=== PATIENT | female | born 1970 | race Caucasian/White ===

== ENCOUNTER 2020-08-08 20:59 | Emergency (ER) | payer OTHER, SELFPAY ==
[2020-08-08 22:15] VITALS: BP 121/80; PULSE 83; RESP 18; TEMP 37.2; O2SAT 97; BMI 36.2
--- NOTE | 2020-08-08 22:28 | XR_ITS ---
EXAMINATION: XR CHEST CLINICAL INFORMATION: Cough COMPARISON: None TECHNIQUE: Frontal view of the chest was obtained. FINDINGS: Difficult exam due to patient body habitus. Generalized opacity over the right mid to lower lung may well represent overlying soft tissue. Developing infiltrate could not be excluded. There is no effusion. Mediastinal contours are normal. XR/XR chest 1V IMPRESSION: Findings as described above. I cannot exclude developing right mid to lower lung infiltrate but this appearance may just be due to overlying tissue. Recommend PA and lateral films when the patient is able
--- NOTE | 2020-08-08 22:34 | ED_ITS ---
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 Related Data Allergies Allergy/AdvReac Type Severity Reaction Status Date / Time No Known Allergies Allergy Verified 08/08/20 21:55 [No Known Allergies*] Review of Systems Review of Systems: All other systems are reviewed and are negative Constitutional: Reports as per HPI and Reports no additional constitutional complaints Eyes: Reports as per HPI and Reports no additional eye complaints Reports system reviewed and no additional complaints, except as documented Cardiovascular: Reports as per HPI and Reports no additional cardiovascular complaints Respiratory: Reports as per HPI and Reports no additional respiratory complaints Gastrointestinal: Reports as per HPI and Reports no additional gastrointestinal complaints Genitourinary: Reports no additional female genitourinary complaints Musculoskeletal: Reports no additional musculoskeletal complaints Skin/Breast: Reports system reviewed and no additional complaints, except as docu Psychiatric: Reports no additional psychiatric complaints Endocrine: Reports no additional endocrine complaints Hematologic/Lymphatic: Reports no additional hematologic/lymphatic complaints Allergic/Immunologic: Reports no additional allergic/immunologic complaints Reports system reviewed and no additional complaints, except as documented and Reports Abnormal speech present [facility] Past Medical History Medical History No significant medical problems Social History Social History Alcohol intake: never Smoked in Last 30 Days: No Use of substances other than those prescribed or required for medical reasons: No Advance Directives: No Advance Directives Information Provided: Yes Physical Exam Vital Signs: Vital Signs: Last Vital Signs Temp 98.9 F 08/08/20 22:15 Pulse 83 08/08/20 22:15 Resp 18 08/08/20 22:15 BP 121/80 08/08/20 22:15 Pulse Ox 97 08/08/20 22:15 Body Mass Index 36.2 Vital signs have been reviewed as normal and appeared to be correct. Blood pressure normal. Heart rate normal. Respiration rate normal. Temperature normal. Oxygen saturation normal. Appearance: Alert. Oriented X3. No acute distress. Head: Normal external exam. Normocephalic. Atraumatic. No Taylor signs noted. No raccoon eyes noted Eyes: PERRLA. EOMI. Conjunctiva and sclera normal. Eyelids normal. ENT: EAC normal. TM's Normal. Pharynx normal. Uvula midline. Moist mucous membranes. No trismus noted. No drooling noted. No muffled voice noted. Neck: Normal inspection. Neck supple. FROM. No adenopathy. Thyroid Normal. No meningeal signs. No neck mass noted. CVS: Normal heart rate and rhythm. Heart sound normal. No murmurs noted. Pulses normal throughout. Respiratory: No respiratory distress. Painless inspiration. Breath sounds normal. No wheezes/rales/rhonchi noted. Chest nontender. No accessory muscle usage noted or decreased air movement noted. Abdomen: Soft and nontender. Bowel sounds normal in all 4 quadrants. No distention noted. No organomegaly noted. No visible injury noted. Back: No CVA tenderness. Full range of motion noted. Skin: Skin warm and dry. Normal skin color. Normal skin turgor. No rashes/lesions/lacerations noted. Extremities: No lower extremity edema. Extremities exhibit normal range of motion. Extremities nontender. Neuro: Oriented X 3. No motor deficit. No sensory deficit. Reflexes normal. Course Course Course Narrative: Assessment and plan. 50-year-old female presented with upper respiratory symptoms after exposure to a known COVID-19 infected personal. Patient tested positive for COVID-19 in the ED. respiratory rate of 18, O2 sat is 97%. Otherwise stable vital signs. Will discharge the patient with CDC recommendation of self quarantine, using face mask, frequent hand washing. Medical Decision Making Lab Data Labs: Lab Results 08/08/20 Range/Units 23:15 Coronavirus (PCR) POSITIVE A (Negative) Influenza Type A (PCR) NEGATIVE (Negative) Influenza Type B (PCR) NEGATIVE (Negative) RSV RNA Qual (PCR) NEGATIVE (Negative) Discharge Plan Discharge Clinical Impression: COVID-19 Patient Disposition: Home, Self-Care Instructions: COVID-19 (Coronavirus Disease 2019) (ED) Additional Instructions: Self isolate/quarantine for 2 weeks, use face mask at all times, frequent handwashing. Come back to the ED for difficulty breathing. Referrals: Physician,Unknown [Primary Care Provider] - 2 days
--- NOTE | 2020-08-08 23:12 | XR_ITS ---
EXAMINATION: XR CHEST CLINICAL INFORMATION: Cough. COMPARISON: Chest x-ray 08/08/2020 TECHNIQUE: 2 views of the chest were obtained. FINDINGS: No significant abnormality is noted involving the heart, lungs, mediastinum, bony thorax or soft tissues. XR/XR chest 2V IMPRESSION: Unremarkable examination.
--- NOTE | 2020-08-09 | ECG_ITS ---
Test Reason : CHEST PAIN Blood Pressure : / mmHG Vent. Rate : 082 BPM Atrial Rate : 082 BPM P-R Int : 150 ms QRS Dur : 086 ms QT Int : 372 ms P-R-T Axes : 040 041 040 degrees QTc Int : 434 ms Normal sinus rhythm Normal ECG No previous ECGs available Referred By: Eugenia Velasco Electronically Signed By:TREVIN LOPEZ MD
[2020-08-09 00:03] LABS: Influenza A PCR NEGATIVE (Negative); Influenza B PCR NEGATIVE (Negative); Resp Syncy Virus RNA Qual PCR NEGATIVE (Negative)
[2020-08-09 00:08] LABS: SARS COV2 PCR INHOUSE POSITIVE (Negative)
== END 2020-08-09 01:58 | disposition home or self-care (01) ==
PROVIDERS: Emergency Provider Emergency Medicine
DX: U07.1 COVID-19 (principal); R50.9 Fever, unspecified; R05 Cough; M79.10 Myalgia, unspecified site
CPT/HCPCS: 0241U; 36415; 71045; 71046; 93005; 99283; 99284

== ENCOUNTER 2020-08-22 12:41 | Outpatient (REF) | payer OTHER, SELFPAY | END 2020-08-22 12:42 | disposition home or self-care (01) | LOC: HO.LAB 12:41 | PROVIDERS: Visit Provider Internal Medicine | DX: Z20.822 Contact with and (suspected) exposure to COVID-19 (principal) | CPT/HCPCS: 36415; C9803; U0003 ==

== ENCOUNTER 2022-02-27 00:30 | Emergency (ER) | payer OTHER, SELFPAY ==
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
[2022-02-27 01:12] VITALS: BP 140/98; PULSE 76; RESP 16; TEMP 36.9; O2SAT 97; BMI 33.9
[2022-02-27 03:57] VITALS: BP 141/88; PULSE 74; RESP 18; TEMP 36.5; O2SAT 97
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
[2022-02-27] MEDS: Acetaminophen 325 MG TABLET 650 MG PO (06:29)
[2022-02-27] MEDS: Metoclopramide HCl 10 MG TABLET PO (06:29)
[2022-02-27] MEDS: Aspirin 81 MG TAB.CHEW PO (06:29)
[2022-02-27] MEDS: diphenhydrAMINE HCL 25 MG TABLET 50 MG PO (06:30)
[2022-02-27 07:26] VITALS: BP 115/78; PULSE 71; RESP 18; TEMP 36.5; O2SAT 99
[2022-02-27 08:47] VITALS: PULSE 78; RESP 15; O2SAT 98
== END 2022-02-27 08:47 | disposition home or self-care (01) ==
PROVIDERS: Emergency Provider Emergency Medicine Emergency Medical Services; PCP Family Medicine
DX: F07.81 Postconcussional syndrome (principal); G44.319 Acute post-traumatic headache, not intractable; S40.022D Contusion of left upper arm, subsequent encounter; S40.021D Contusion of right upper arm, subsequent encounter; S20.219D Contusion of unspecified front wall of thorax, subsequent encounter; S80.12XD Contusion of left lower leg, subsequent encounter; S80.11XD Contusion of right lower leg, subsequent encounter; S20.223 Contusion of bilateral back wall of thorax; V43.52XD Car driver injured in collision with other type car in traffic accident, subsequent encounter
CPT/HCPCS: 70450; 99284; Q0163

== ENCOUNTER 2022-03-19 14:53 | Emergency (ER) | payer OTHER, SELFPAY ==
--- NOTE | ~2022-03-19 | XR_ITS ---
EXAMINATION: XR CHEST CLINICAL INFORMATION: Cough COMPARISON: 08/08/2020 TECHNIQUE: Frontal view of the chest was obtained. FINDINGS: No acute finding. Lung tyson are grossly clear. No infiltrate. No effusion. The cardiac silhouette is comparable to previous. The hilar structures are not felt to be pathologically enlarged. XR/XR chest 1V IMPRESSION: Negative acute portable chest.
--- NOTE | 2022-03-19 14:54 | ECG_ITS ---
Test Reason : CHEST PAIN Blood Pressure : / mmHG Vent. Rate : 082 BPM Atrial Rate : 082 BPM P-R Int : 138 ms QRS Dur : 086 ms QT Int : 382 ms P-R-T Axes : 008 028 046 degrees QTc Int : 446 ms Normal sinus rhythm Nonspecific T wave abnormality Abnormal ECG When compared with ECG of 08-AUG-2020 22:30, Inverted T waves have replaced nonspecific T wave abnormality in Anterior leads Referred By: Generic ED Physician Electronically Signed By:CUONG GOMEZ
[2022-03-19 15:26] VITALS: BP 137/80; PULSE 88; RESP 16; TEMP 36.3; O2SAT 98; BMI 34.3
[2022-03-19 16:03] LABS: COVID-19 Test Negative (Negative)
--- NOTE | 2022-03-19 16:47 | ED_ITS ---
HPI - General Adult General Chief complaint: Upper Respiratory Symptoms Stated complaint: chest pains/headaches/possible COVID Time Seen by Provider: 03/19/22 16:25 Source: patient Mode of arrival: ambulatory Limitations: no limitations History of Present Illness HPI narrative: 52-year-old female presents to ED for COVID exposure. 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 There was no mask wearing. Patient herself states after leaving her job yesterday she started having chills, body aches, fever, and cough. Patient denies any chest pain, shortness of breath, leg swelling, calf pain, pleurisy or coughing up blood. Patient denies any recent long travel, recent surgery, or estrogen hormonal use. Related Data Previous Rx's Medication Instructions Recorded metoclopramide HCl 10 mg tablet 10 mg PO Q6H PRN nausea and 02/27/22 (Reglan) vomiting #14 tabs Allergies Allergy/AdvReac Type Severity Reaction Status Date / Time No Known Allergies Allergy Verified 02/27/22 01:15 [No Known Allergies*] Review of Systems Review of Systems: Coughing, body aches, headache, and chills. Yes all other systems are reviewed and are negative PMFSH Past Medical History Medical History No significant medical problems Social History Social History Alcohol intake: never Advance Directives: No Advance Directives Information Provided: Yes Physical Exam ED Vital Signs: Vital Signs - 24 hr 03/19/22 15:26 Temperature 97.3 F Pulse Rate 88 Respiratory Rate 16 Blood Pressure 137/80 Pulse Oximetry 98 Oxygen Delivery Method Room Air BMI result Body Mass Index 34.3 Const General: cooperative, healthy appearing, comfortable, no acute distress, well developed, alert, awake, Physically active and acute distress Orientation/consciousness: oriented to time and patient oriented x3 HENMT Head: Yes normal to inspection, Yes No palpable skull fracture present, Yes normocephalic, Yes atraumatic and No abrasion Eyes General: appearance normal, both eyes and all related structures Neck Neck: Yes normal visual inspection, Yes full ROM, Yes no lymphadenopathy, Yes no meningeal signs, Yes trachea midline, Yes supple, No anterior neck swelling and No tender Chest Chest palpation & inspection: normal inspection of the chest and normal palpation of entire chest wall Breast/axilla inspection: normal inspection of the breasts Resp Effort & Inspection: normal respiratory effort and able to speak in complete sentences Auscultation: clear to auscultation bilaterally Cardio Jugular venous distension: no JVD Heart sounds: S1 normal heart sound present and S2 normal heart sound present GI Inspection: Yes normal to inspection and No abdominal wall ecchymosis Palpation (GI): Soft to palpation, not firm, nontender, no guarding and not rigid General: No CVA tenderness and Yes no CVA tenderness Back/Spine/Pelvis Back: no CVA tenderness, No CVA tenderness and No back tenderness Skin General skin exam: no rashes or lesions noted and elasticity normal Neuro General: oriented to time, patient oriented x3 and no meningeal signs Cranial nerves: Yes CN's II-XII intact bilaterally Extrem Other: Lower extremity negative for swelling, pitting edema, calf tenderness General: Yes normal to inspection and Yes full ROM Psych Appearance: grossly normal, well kempt and not disheveled Course Course Course Narrative: Rapid medical screening was done by triage nurse. Chest x-ray, COVID swab, an EKG was ordered. Patient denies ever having chest pain and EKG was not indicated but was ordered by triage nurenedelia. No need for any troponin. History physical exam indicate URI symptoms. Patient well-appearing Reevaluation(s) Reevaluation #1: COVID chest x-ray came back normal. EKG is normal and negative STEMI. Patient was informed since she was exposed and started to have symptoms yesterday he should get retested in 5 days. Patient informed to return to the ED immediately if she has chest pain, shortness of breath, any other concerning symptoms. Not suspecting myocardial infarction, CHF, pulmonary embolus, or any other emergent etiology. Time: 16:52 Medical Decision Making MDM Narrative Medical decision making narrative: URI Lab Data Labs: Lab Results 03/19/22 Range/Units 15:32 COVID-19 (JAMILA) Negative (Negative) COVID-19 Clin Com See Note ECG Data Interpretation: Normal sinus rhythm. Normal EKG. Ventricular rate 82. MI interval 138. QRS 86. QTC 446. Negative STEMI Discharge Plan Discharge Clinical Impression: Upper respiratory infection, Viral syndrome Patient Disposition: Home, Self-Care Instructions: Upper Respiratory Infection (ED), Viral Syndrome (ED) Prescriptions: No Action metoclopramide HCl [Reglan] 10 mg tablet 10 mg PO Q6H PRN (Reason: nausea and vomiting) Qty: 14 0RF Interventions: ED Discharge Assessment Last Done: 03/19/22 17:26 Discharge Date/Time: 03/19/22 17:26 Print Language: Portuguese
== END 2022-03-19 17:26 | disposition home or self-care (01) ==
PROVIDERS: Emergency Provider Emergency Medicine
DX: B34.9 Viral infection, unspecified (principal); R07.89 Other chest pain; R51.9 Headache, unspecified; Z20.822 Contact with and (suspected) exposure to COVID-19
CPT/HCPCS: 71045; 87635; 93005; 99283

== ENCOUNTER 2022-07-28 16:49 | Emergency (ER) | payer OTHER, SELFPAY ==
--- NOTE | ~2022-07-28 | XR_ITS ---
EXAMINATION: XR ANKLE, LEFT CLINICAL INFORMATION: Injury COMPARISON: None TECHNIQUE: AP, lateral, and mortise views of the left ankle. FINDINGS: The bones and soft tissues are normal. No fracture. Alignment is anatomic. Joint spaces are maintained. No joint effusion. There is a small inferior calcaneal spur. XR/XR ankle LT min 3V IMPRESSION: * No fracture. * There is a small inferior calcaneal spur.
[2022-07-28 16:58] VITALS: BP 134/86; PULSE 72; O2SAT 98
[2022-07-28 17:10] VITALS: BP 130/66; PULSE 73; RESP 16; TEMP 36.3; O2SAT 99; BMI 32.3
--- NOTE | 2022-07-28 17:14 | ED_ITS ---
HPI - Extremity Injury (Lower) General Chief Complaint: Extremity Injury, Lower <MARINA Alvarez Last Filed: 07/28/22 17:15> Stated Complaint: l ankle, lower back pain <MARINA Alvarez Last Filed: 07/28/22 17:15> Time Seen by Provider: 07/28/22 18:25 <MARINA Alvarez - Last Filed: 07/28/22 17:15> Source: patient, EMS and hourly sign language interpreter <MARINA Conde Last Filed: 07/29/22 08:17> Mode of arrival: EMS <MARINA Conde Last Filed: 07/29/22 08:17> Limitations: language barrier <MARINA Conde Last Filed: 07/29/22 08:17> History of Present Illness HPI Narrative: Patient is a 52 year old assigned female at with no reported medical history presenting to the emergency department today with left ankle pain, low back pain, and right middle finger pain. 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 Patient denies hitting her head with the incident. Patient denies any loss of consciousness with the incident. Patient denies any dizziness, lightheadedness, abdominal pain, nausea, vomiting, fever, chills, blurry vision, double vision, loss of vision, chest pain, difficulty breathing, shortness of breath, night sweats, pain with urination, increased urinary frequency, increased urinary urgency, blood in her urine or stool, syncope or a near syncopal episode, bowel incontinence, bladder incontinence, bowel retention, bladder retention, or any other complaints at this time. <MARINA Conde Last Filed: 07/29/22 08:17> MD complaint: ankle injury and fall <MARINA Conde Last Filed: 07/29/22 08:17> Onset (ago): hour(s) <MARINA Conde Last Filed: 07/29/22 08:17> Place: work <MARINA Conde Last Filed: 07/29/22 08:17> Severity: mild <MARINA Conde Last Filed: 07/29/22 08:17> Severity scale (1-10): 3 <MARINA Conde - Last Filed: 07/29/22 08:17> Relieving factors: nothing <MARINA Conde Last Filed: 07/29/22 08:17> Exacerbating factors: nothing <MARINA Conde - Last Filed: 07/29/22 08:17> Context: fall <MARINA Conde - Last Filed: 07/29/22 08:17> Other symptoms: none <MARINA Conde - Last Filed: 07/29/22 08:17> Related Data Home Medications: Previous Rx's Medication Instructions Recorded metoclopramide HCl 10 mg tablet 10 mg PO Q6H PRN nausea and 02/27/22 (Reglan) vomiting #14 tabs <MARINA Alvarez - Last Filed: 07/28/22 17:15> Allergies/Adverse Reactions: Allergies Allergy/AdvReac Type Severity Reaction Status Date / Time No Known Allergies Allergy Verified 07/28/22 17:15 [No Known Allergies*] <MARINA Alvarez - Last Filed: 07/28/22 17:15> Review of Systems Constitutional: Constitutional: Reports no additional constitutional complaints, Denies chills, Denies fever(s) and Denies night sweats <MARINA Conde - Last Filed: 07/29/22 08:17> Eyes: Eyes: Reports no additional eye complaints, Denies blurry vision, Denies change in vision, Denies diplopia, Denies eye discharge, Denies loss of vision and Denies eye pain <MARINA Conde - Last Filed: 07/29/22 08:17> ENT: Denies dizziness <MARINA Conde Last Filed: 07/29/22 08:17> Cardiovascular: Cardiovascular: Reports no additional cardiovascular complaints, Denies chest pain, Denies lightheadedness, Denies Loss of Consciousness and Denies dyspnea <MARINA Conde Last Filed: 07/02 04/22 08:17> Respiratory: Respiratory: Reports no additional respiratory complaints and Denies dyspnea <MARINA Conde - Last Filed: 07/29/22 08:17> Gastrointestinal: Gastrointestinal: Reports no additional gastrointestinal complaints, Denies abdominal pain, Denies melena, Denies hematochezia, Denies change in bowel habits and Denies change in stool character <MARINA Conde - Last Filed: 07/29/22 08:17> Genitourinary: Genitourinary: Denies hematuria, Denies urinary frequency, Denies dysuria, Denies urinary incontinence, Denies urinary hesitancy and Denies urinary urgency <MARINA Conde - Last Filed: 07/29/22 08:17> Musculoskeletal: Musculoskeletal: Reports no additional musculoskeletal complaints, Denies numbness and Denies tingling <MARINA Conde - Last Filed: 07/29/22 08:17> Comments: left ankle pain, low back pain, right middle finger pain <MARINA Conde - Last Filed: 07/29/22 08:17> Neurologic: Denies dizziness, Denies loss of vision, Denies numbness and Denies tingling <MARINA Conde - Last Filed: 07/29/22 08:17> Psychiatric: Psychiatric: Reports no additional psychiatric complaints <MARINA Conde - Last Filed: 07/29/22 08:17> Endocrine: Endocrine: Reports no additional endocrine complaints <MARINA Conde - Last Filed: 07/29/22 08:17> Hematologic/Lymphatic: Hematologic/Lymphatic: Reports no additional hematologic/lymphatic complaints <MARINA Conde - Last Filed: 07/29/22 08:17> Allergic/Immunologic: Allergic/Immunologic: Reports no additional allergic/immunologic complaints <MARINA Conde - Last Filed: 07/29/22 08:17> [facility] Past Medical History Attestation statement: The following information was validated with the patient. <MARINA Conde - Last Filed: 07/29/22 08:17> Source: old records reviewed and nursing notes reviewed <MARINA Conde - Last Filed: 07/29/22 08:17> Medical History: Medical History No significant medical problems <MARINA Alvarez - Last Filed: 07/28/22 17:15> Social History Social History: Social History Alcohol intake: never Advance Directives: No Advance Directives Information Provided: No <MARINA Alvarez - Last Filed: 07/28/22 17:15> Physical Exam Vital Signs: Vital Signs: Last Vital Signs Temp 97.3 F 07/28/22 17:10 Pulse 73 07/28/22 17:10 Resp 16 07/28/22 17:10 BP 130/66 07/28/22 17:10 Pulse Ox 99 07/28/22 17:10 O2 Del Method 07/28/22 17:10 BMI result Body Mass Index 32.3 <MARINA Alvarez - Last Filed: 07/28/22 17:15> Vital Signs: Last Vital Signs Temp 97.3 F 07/28/22 17:10 Pulse 73 07/28/22 17:10 Resp 16 07/28/22 17:10 BP 130/66 07/28/22 17:10 Pulse Ox 99 07/28/22 17:10 O2 Del Method 07/28/22 17:10 BMI result Body Mass Index 32.3 <MARINA Conde - Last Filed: 07/29/22 08:17> Const: General: cooperative, no acute distress, alert and awake <MARINA Conde - Last Filed: 07/29/22 08:17> Nutritional Appearance: well nourished <MARINA Conde - Last Filed: 07/29/22 08:17> Orientation/consciousness: patient oriented x3 <MARINA Conde - Last Filed: 07/29/22 08:17> Limitations: no limitations <MARINA Conde - Last Filed: 07/29/22 08:17> HEENT: Head: Yes normal to inspection and Yes atraumatic <MARINA Conde - Last Filed: 07/29/22 08:17> Ears: hearing grossly normal bilaterally and external ears normal <MARINA Conde - Last Filed: 07/29/22 08:17> General nose exam: Normal external nose present, no nasal discharge noted and no epistaxis <MARINA Conde Last Filed: 07/29/22 08:17> Face and sinus: Yes normal facial exam, No abrasion and No laceration <MARINA Conde Last Filed: 07/29/22 08:17> Mouth: Normal oral and palatal mucosa present, no drooling and no muffled voice <Luz Chavis [place] - Last Filed: 07/29/22 08:17> Eyes: General: appearance normal, both eyes and all related structures <Luz Chavis [facility] Last Filed: 07/29/22 08:17> Periorbital: periorbital findings normal <Luz Chavis [place] - Last Filed: 07/29/22 08:17> Eyelids: Yes eyelids normal <Luz Chavis [place] - Last Filed: 07/29/22 08:17> Conjunctivae: conjunctivae normal <Luz Chavis [place] - Last Filed: 07/29/22 08:17> Pupils: Equal, round and reactive pupils present <Luz Chavis [place] - Last Filed: 07/29/22 08:17> EOM: EOMs intact bilaterally <Luz Chavis [place] - Last Filed: 07/29/22 08:17> Neck: Neck: Yes normal visual inspection, Yes full ROM and Yes no lymphadenopathy <Luz Chavis [place] - Last Filed: 07/29/22 08:17> Chest: Chest palpation & inspection: normal inspection of the chest <Luz Chavis [facility] Last Filed: 07/29/22 08:17> Resp: Effort & Inspection: normal respiratory effort and able to speak in complete sentences <Luz Chavis [facility] Last Filed: 07/29/22 08:17> Auscultation: clear to auscultation bilaterally <Lzu Chavis [place] - Last Filed: 07/29/22 08:17> Cardio: Rate: regular rate <Luz Chavis [place] - Last Filed: 07/29/22 08:17> Rhythm: regular rhythm <Luz Chavis [place] - Last Filed: 07/29/22 08:17> GI: Inspection: Yes normal to inspection <Luz Chavis [place] - Last Filed: 07/29/22 08:17> Palpation (GI): Soft to palpation, not firm, nontender, no guarding and not rigid <Luz Chavis [place] - Last Filed: 07/29/22 08:17> : General: Yes no CVA tenderness <Luz Chavis PA - Last Filed: 07/29/22 08:17> Back/Spine/Pelvis: Back: no CVA tenderness <Luz Chavis PA - Last Filed: 07/29/22 08:17> Cervical Spine: normal cervical lordosis and cervical ROM normal <Luz Chavis PA - Last Filed: 07/29/22 08:17> Thoracic/Lumbar Spine: thoracic and lumbar spine normal to inspection and thoraco-lumbar ROM normal <Luz Chavis PA - Last Filed: 07/29/22 08:17> Pelvis: no pain with anterior-posterior compression <Luz Chavis PA - Last Filed: 07/29/22 08:17> Neuro: General: patient oriented x3 and moves all extremities <Luz Chavis PA - Last Filed: 07/29/22 08:17> Cranial nerves: Yes Equal, round and reactive pupils present <Luz Chavis PA - Last Filed: 07/29/22 08:17> Cognition (Neuro): normal cognition <Luz Chavis PA - Last Filed: 07/29/22 08:17> Motor exam (neuro): 5/5 motor strength present throughout <Luz Chavis PA - Last Filed: 07/29/22 08:17> Sensory Exam: Normal double simultaneous stimulation for sensation <Luz Garciaedith PA - Last Filed: 07/29/22 08:17> Coordination: [id number] test normal <Luz Garciaedith PA - Last Filed: 07/29/22 08:17> Extrem: General: Yes normal to inspection, Yes full ROM and Yes capillary refill normal <Luz Chavis PA - Last Filed: 07/29/22 08:17> Psych: Appearance: grossly normal <Luz Garciaedith PA - Last Filed: 07/29/22 08:17> Mental Status: mental status grossly normal <Luz GarciaMARINA sharma - Last Filed: 07/29/22 08:17> Affect: normal affect <Luz GarciaMARINA sharma - Last Filed: 07/29/22 08:17> Attitude: cooperative <Luz GarciaMARINA sharma - Last Filed: 07/29/22 08:17> Thought process: Normal thought process present <MARINA Conde - Last Filed: 07/29/22 08:17> Thought content: Normal thought content present <MARINA Conde Last Filed: 07/29/22 08:17> Insight: Good insight present (Psych) <MARINA Conde - Last Filed: 07/29/22 08:17> Course Course Course Narrative: 17:14 - RME - 52 yo female presenting with left ankle pain and low back pain 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 She twisted her left ankle and has lateral ankle pain. Able to bear some weight but with pain. XR pending. <MARINA Alvarez - Last Filed: 07/28/22 17:15> Medical Decision Making Medical Decision Making MDM Narrative: Patient is a 52 year old assigned female at with no reported medical history presenting to the emergency department today with left ankle pain, right middle finger pain, and low back pain. Patient's physical exam was unremarkable. Patient's left ankle x-ray showed no acute process. Due to the low mechanism of injury, I have very low suspicion of any acute feng process of the right middle finger or the low back. Patient's low back pain is most consistent with muscular type pain, the patient's right middle finger and left ankle injuries are most consistent with sprains. I explained my physical exam findings as well as all test results to the patient. Patient's left ankle was placed in a walking boot and the patient was given crutches with crutch instructions. Patient's right middle finger was placed in an aluminum splint, without incident. I answered all questions asked by the patient. I stressed the importance of the patient taking her medication as prescribed. I stressed the importance of the patient following up with her primary care provider, [facility], and orthopedics. I stressed the importance of the patient returning to the emergency department immediately if her symptoms were to worsen or if she were to develop any dizziness, shortness of breath, difficulty breathing, chest pain, blurry vision, loss of vision, nausea, vomiting, abdominal pain, fever, chills, back pain, or any other complaints. Patient verbalized agreement and understanding with this treatment plan and discharge. <MARINA Conde Last Filed: 07/29/22 08:17> Differential Diagnosis Differential Diagnoses: The differential diagnosis associated with the presentation includes <MARINA Conde Last Filed: 07/29/22 08:17> right middle finger sprain, left ankle sprain, low back pain <MARINA Conde - Last Filed: 07/29/22 08:17> Radiology Impression Discussion of test interpretation with radiology: I have reviewed the radiologist's reading. <MARINA Conde - Last Filed: 07/29/22 08:17> Radiologist Impression: My interpretation is in agreement with the radiologist's impression of this imaging study. EXAMINATION: XR ANKLE, LEFT CLINICAL INFORMATION: Injury? COMPARISON: None? TECHNIQUE: AP, lateral, and mortise views of the left ankle. FINDINGS: The bones and soft tissues are normal. No fracture. Alignment is anatomic. Joint spaces are maintained. No joint effusion. There is a small inferior calcaneal spur. XR/XR ankle LT min 3V IMPRESSION: ? *? No fracture. ? *? There is a small inferior calcaneal spur. ? Dictated By: Belle Michael MD Signed By: Electronically signed by Belle Michael MD 07/28/22 642 <MARINA Conde - Last Filed: 07/29/22 08:17> Procedures Orthopedic Splinting/Casting Injury #1: Side: left <MARINA Conde Last Filed: 07/29/22 08:17> Lower Extremity Injury Location: ankle <MARINA Conde Last Filed: 07/29/22 08:17> Lower Extremity Immobilizer: boot orthosis <MARINA Conde - Last Filed: 07/29/22 08:17> Other Orthopedic Equipment: crutches <MARINA Conde - Last Filed: 07/29/22 08:17> Injury #2: Side: right <MARINA Conde - Last Filed: 07/29/22 08:17> Upper Extremity Injury Location: finger (middle) <MARINA Conde Last Filed: 07/29/22 08:17> Upper Extremity Immobilizer: aluminum form splint <MARINA Conde - Last Filed: 07/29/22 08:17> Discharge Plan Discharge Clinical Impression: Ankle sprain and strain, Finger sprain <MARINA Alvarez Last Filed: 07/28/22 17:15> Patient Disposition: Home, Self-Care <MARINA Alvarez Last Filed: 07/28/22 17:15> Instructions: Ankle Sprain (ED), Finger Sprain (ED) <MARINA Alvarez Last Filed: 07/28/22 17:15> Additional Instructions: Follow up with your primary care provider and an orthopedic provider. Return to the emergency department immediately if your symptoms worsen or if you develop any dizziness, shortness of breath, difficulty breathing, chest pain, blurry vision, loss of vision, nausea, vomiting, abdominal pain, fever, chills, back pain, or any other complaints. Moiz un seguimiento con hernadez proveedor de atenci?n primaria y un proveedor ortop?dico. Regrese a la rhiannon de emergencias de inmediato si renae s?ntomas empeoran o si presenta mareos, dificultad para respirar, dolor de pecho, visi?n borrosa, p?rdida de la visi?n, n?useas, v?mitos, dolor abdominal, fiebre, escalofr?os, dolor de espalda o cualquier otras quejas. <MARINA Alvarez Last Filed: 07/28/22 17:15> Prescriptions: No Action metoclopramide HCl [Reglan] 10 mg tablet 10 mg PO Q6H PRN (Reason: nausea and vomiting) Qty: 14 0RF <MARINA Alvarez - Last Filed: 07/28/22 17:15> Referrals: [facility] [Provider Group] (Call to establish and follow up with a primary care provider. If you already have a primary care provider, please follow up with them. Llame para establecer y hacer un seguimiento con un proveedor de atenci?n primaria. Si ya tiene un proveedor de atenci?n primaria, moiz un seguimiento con ?l. ) [facility] [place] [Provider Group] (Call to establish and follow up with a primary care provider. If you already have a primary care provider, please follow up with them. ) [facility] [Provider Group] (Call to establish and follow up with a primary care provider. If you already have a primary care provider, please follow up with them. Llame para establecer y hacer un seguimiento con un proveedor de atenci?n primaria. Si ya tiene un proveedor de atenci?n primaria, moiz un seguimiento con ?l. Llame para establecer y hacer un seguimiento con un proveedor de atenci?n primaria. Si ya tiene un proveedor de atenci?n primaria, moiz un seguimiento con ?l. ) [facility] [Provider Group] (Call to establish and follow up with an orthopedic provider. Llame para establecer y hacer un seguimiento con un proveedor ortop?dico.) [facility] [Provider Group] (Since this was a work related injury, call to establish and follow up with work connection. Dado que se trat? de fortunato lesi?n relacionada con el trabajo, llame para establecer y hacer un seguimiento con la conexi?n laboral.) [facility] [Physician] - (Call to establish and follow up with a primary care provider. If you already have a primary care provider, please follow up with them. Llame para establecer y hacer un seguimiento con un proveedor de atenci?n primaria. Si ya tiene un proveedor de atenci?n primaria, moiz un seguimiento con ?l. ) <MARINA Alvarez - Last Filed: 07/28/22 17:15> Stand Alone Forms: Work/School Release <MARINA Alvarez - Last Filed: 07/28/22 17:15> Interventions: ED Discharge Assessment Last Done: 07/28/22 19:38 <MARINA Alvarez - Last Filed: 07/28/22 17:15> Discharge Date/Time: 07/28/22 19:38 <MARINA Alvarez - Last Filed: 07/28/22 17:15> Print Language: Bengali <MARINA Alvarez - Last Filed: 07/28/22 17:15>
== END 2022-07-28 19:38 | disposition home or self-care (01) ==
PROVIDERS: Emergency Provider Emergency Medicine
DX: S93.402A Sprain of unspecified ligament of left ankle, initial encounter (principal); S63.612A Unspecified sprain of right middle finger, initial encounter; M54.50 Low back pain, unspecified; M54.2 Cervicalgia; R51.9 Headache, unspecified; W01.0XXA Fall on same level from slipping, tripping and stumbling without subsequent striking against object, initial encounter; Y93.9 Activity, unspecified; Y92.9 Unspecified place or not applicable; Y99.0 Civilian activity done for income or pay
CPT/HCPCS: 29515; 73610; 99283

== ENCOUNTER 2022-08-04 12:43 | Outpatient (REF) | payer OTHER, SELFPAY ==
--- NOTE | ~2022-08-04 | XR_ITS ---
EXAMINATION: XR HAND, RIGHT CLINICAL INFORMATION: Pain in right hand. COMPARISON: None TECHNIQUE: PA, lateral, and oblique views of the right hand. FINDINGS: The bones and soft tissues are normal. No fracture. Alignment is anatomic. Joint spaces are maintained. No erosions or soft tissue calcifications. XR/XR hand RT min 3V IMPRESSION: Unremarkable right hand.
== END 2022-08-04 12:44 | disposition home or self-care (01) ==
LOC: HO.HOSX 12:43
PROVIDERS: Visit Provider Physician Assistant
DX: S60.031A Contusion of right middle finger without damage to nail, initial encounter (principal); S93.402A Sprain of unspecified ligament of left ankle, initial encounter
CPT/HCPCS: 73130; 99202

== ENCOUNTER → 2022-10-06 12:48 | Outpatient (BNVA) | payer OTHER, SELFPAY | PROVIDERS: Visit Provider Physician Assistant | DX: Z13.89 Encounter for screening for other disorder (principal) ==

== ENCOUNTER 2022-10-26 15:00 | Outpatient (RCR) | payer OTHER, SELFPAY ==
--- NOTE | 2022-09-10 13:05 | MHC.PT.EP ---
[facility] [place] Office [place] Office [place] Office [address] [phone] F: [phone] F: [phone] F: [phone] F: [phone] Physical Therapy Plan of Care Date of Evaluation: Date of Surgery: N/A Diagnosis: Sprain of unspecified ligament of left ankle, initial encounter Assessment: Pt is a 52yo F who presents to PT after injuring her L ankle on 07/28/22. Xrays negative for fracture. Pt presents to PT with current impairments in pain, decreased L ankle ROM all planes, decreased strength, decreased muscle length, decreased balance/proprioception, and impaired gait. She is limited functionally by prolonged standing, walking, stair navigation, and bending. She is a good candidate for skilled PT in order to address current impairments to facilitate return to PLOF. She is recommended to be seen 2x/week for 4 weeks and will be reassessed at that time. Frequency and Duration: The patient will be seen 2x/week for 4 weeks Short Term Goals: Pt will be I with HEP to promote self management of symptoms Pt will improve L DF by at least 5 degrees Musical Therapist Goals: Pt will demonstrate full ROM and strength all planes of L ankle Pt will tolerate standing and walking > 30 min with minimal to no discomfort Pt will demonstrate improvements in function as evidenced by statistically significant improvement in LEFI outcome measure Treatment Plan: Modalities to reduce pain, spasms and effusion. Manual therapy to restore motion and function. Therapeutic exercise to improve strength and flexibility. Neuromuscular re-education for posture and balance. Therapeutic activities to return to functional activities of daily living. Electronically signed by: Jen Valenzuela, PT, DPT Please sign and return to therapist. Thank you for your referral.
--- NOTE | 2022-11-18 10:39 | MHC.PT.DC ---
[facility] [place] Office [place] Office [place] Office [address] [phone] F: [phone] F: [phone] F: [phone] F: [phone] Physical Therapy Discharge Report Diagnosis: Sprain of unspecified ligament of left ankle, initial encounter Date of Surgery: N/A Date of Evaluation: 09/09/22 Date of Discharge: 11/18/22 Treatments to Date: 8 Cancellations to Date: 3 No Shows to Date: 2 Discharge Status: Visit Non-compliance Discharge Summary: Pt was seen for PT from 09/09/22-10/26/22. Her last attended appointment was 10/26/22. She has had 3 cancellations and 2 no-show appointments since SOC. Pt is being D/C per [facility] attendance policy and visit non-compliance. Pt current level of function unknown at this time. Electronically signed by: Jen Valenzuela, PT, DPT Please sign and return to therapist. Thank you for your referral.
== END 2022-11-18 10:40 | disposition home or self-care (01) ==
LOC: HO.PT 15:00
PROVIDERS: Visit Provider Physician Assistant
DX: S93.402A Sprain of unspecified ligament of left ankle, initial encounter (principal)
CPT/HCPCS: 97110; 97162

== ENCOUNTER 2023-05-18 21:51 | Emergency (ER) | payer OTHER, SELFPAY ==
--- NOTE | ~2023-05-18 | XR_ITS ---
EXAMINATION: XR CERVICAL SPINE CLINICAL INFORMATION: Torticollis COMPARISON: None available. TECHNIQUE: 5 views of the cervical spine were obtained. FINDINGS: No acute visible fracture or dislocation. Straightening of normal cervical curvature which may be secondary to patient positioning versus muscle spasm. Visualized dens is intact. Lateral masses are symmetric. Vertebral body heights and disc spaces are maintained. Prevertebral soft tissues are unremarkable. Posterior elements are intact. Paraspinal soft tissues are unremarkable. Visualized portions of the upper chest are unremarkable. XR/XR cervical spine 3V IMPRESSION: 1. No acute visible fracture or dislocation. 2. Straightening of normal cervical curvature which may be secondary to patient positioning versus muscle spasm.
[2023-05-18 21:57] VITALS: BP 165/89; PULSE 62; RESP 18; TEMP 36.4; O2SAT 99; BMI 35.2
--- NOTE | 2023-05-18 22:45 | ED_ITS ---
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 patient woke up with spasm to right neck, denies injury, denies fever. Has had prior neck spasm in the past MD elicited complaint: other (neck pain) Onset (ago): hour(s) Timing: constant Severity: moderate Similar Symptoms Previously: Yes Radiation: other (right arm) Related Data Previous Rx's Medication Instructions Recorded metoclopramide HCl 10 mg tablet 10 mg PO Q6H PRN nausea and 02/27/22 (Reglan) vomiting #14 tabs cyclobenzaprine 10 mg tablet 10 mg PO TID #10 tabs 05/18/23 naproxen 500 mg tablet (Naprosyn) 500 mg PO BID #20 tabs 05/18/23 Allergies Allergy/AdvReac Type Severity Reaction Status Date / Time No Known Allergies Allergy Verified 10/06/22 13:06 [No Known Allergies*] Review of Systems Review of Systems: Yes all other systems are reviewed and are negative Neurologic: Denies Sensory deficit (Neuro) [facility] Past Medical History Medical History No significant medical problems Social History Social History Alcohol intake: never Patient Tobacco Use Status: Never used Tobacco Advance Directives: No Advance Directives Information Provided: Yes Current occupational status: unemployed Physical Exam Vital Signs: Vital Signs: Last Vital Signs Temp 97.6 F 05/18/23 21:57 Pulse 62 05/18/23 21:57 Resp 18 05/18/23 21:57 BP 165/89 H 05/18/23 21:57 Pulse Ox 99 05/18/23 21:57 O2 Del Method Room Air 05/18/23 21:57 BMI result Body Mass Index 35.2 Const: General: healthy appearing Nutritional Appearance: average body habitus Orientation/consciousness: oriented to person and patient oriented x3 Limitations: no limitations HEENT: Head: Yes normal to inspection Ears: external ears normal General nose exam: Normal external nose present Mouth: Normal oral and palatal mucosa present and oropharynx normal Throat: Yes posterior oropharynx normal Eyes: General: appearance normal, both eyes and all related structures Neck: Other: Right trapezius spasm with neck turned to the right, The neck is not supple Chest: Chest palpation & inspection: normal inspection of the chest Resp: Auscultation: clear to auscultation bilaterally Cardio: Jugular venous distension: no JVD Rate: regular rate Rhythm: regular rhythm Heart sounds: S1 normal heart sound present and S2 normal heart sound present GI: Inspection: Yes normal to inspection Palpation (GI): Soft to palpation, nontender and No hepatosplenomegaly present Auscultation: normal bowel sounds : General: Yes no CVA tenderness Back/Spine/Pelvis: Back: no CVA tenderness Skin: General skin exam: no rashes or lesions noted Neuro: General: oriented to person and patient oriented x3 Cranial nerves: Yes CN's II-XII intact bilaterally Motor exam (neuro): 5/5 motor strength present throughout Sensory Exam: No Sensory deficit (Neuro) Extrem: General: Yes normal to inspection Psych: Appearance: grossly normal Course Reevaluation(s) Reevaluation #1: xray shows minimal djd, will treat the patient for neck spasm Time: 23:34 Medications Administered Discontinued Medications Generic Name Dose Route Start Last Admin Trade Name Freq PRN Reason Stop Dose Admin Cyclobenzaprine HCl 10 mg 05/18/23 22:44 05/18/23 23:03 Cyclobenzaprine Hcl 10 Mg Tablet PO 05/18/23 22:45 10 mg ONCE ONE Administration Ketorolac Tromethamine 60 mg 05/18/23 22:44 05/18/23 23:03 Ketorolac Tromethamine 60 Mg/2 Ml Vial IM 05/18/23 22:45 60 mg ONCE ONE Administration Medical Decision Making Differential Diagnosis Differential Diagnoses: The differential diagnosis associated with the presentation includes (torticollis, neck strain, degenerative disease were all considered) Independent Interpretation I performed an independent interpretation of an: Plain X-Ray (minimal djd) Independent Historian Clinical information obtained from an independent historian. History obtained from or confirmed by: Friend Tests considered The following testing was considered but not selected: MRI of neck considered but patient is non focal Chronic Conditions Patient?s care impacted by: Other (fibromyalgia) Discharge Plan Discharge Clinical Impression: Acute torticollis Patient Disposition: Home, Self-Care Instructions: Neck Pain (ED) Prescriptions: New cyclobenzaprine 10 mg tablet 10 mg PO TID Qty: 10 0RF naproxen [Naprosyn] 500 mg tablet 500 mg PO BID Qty: 20 0RF No Action metoclopramide HCl [Reglan] 10 mg tablet 10 mg PO Q6H PRN (Reason: nausea and vomiting) Qty: 14 0RF Referrals: Physician,Unknown J [Primary Care Provider] - 3 days
[2023-05-18] MEDS: Ketorolac Tromethamine 60 MG/2 ML VIAL IM (23:03)
[2023-05-18] MEDS: Cyclobenzaprine HCl 10 MG TABLET PO (23:03)
--- NOTE | 2023-05-18 23:08 | PC.NURSE ---
Pt ca&ox4, no signs of distress, Pt reports 10/10 neck and head pain with an onset of 1 day ago Pt denies injury to head/neck. Pt medicated per sep. Family at bedside. Plan of care ongoing.
== END 2023-05-19 00:01 | disposition home or self-care (01) ==
PROVIDERS: Emergency Provider Emergency Medicine
DX: M43.6 Torticollis (principal); M54.2 Cervicalgia; R51.9 Headache, unspecified
CPT/HCPCS: 72040; 96372; 99283; 99284; J1885

== ENCOUNTER 2023-08-02 16:16 | Emergency (ER) | payer OTHER, SELFPAY ==
--- NOTE | ~2023-08-02 | XR_ITS ---
EXAMINATION: XR CHEST CLINICAL INFORMATION: Chest pain COMPARISON: 03/19/2022 TECHNIQUE: 2 views of the chest were obtained. FINDINGS: No significant abnormality is noted involving the heart, lungs, mediastinum, bony thorax or soft tissues. XR/XR chest 2V IMPRESSION: Unremarkable examination.
--- NOTE | 2023-08-02 16:20 | ECG_ITS ---
Test Reason : CHEST PAIN Blood Pressure : / mmHG Vent. Rate : 075 BPM Atrial Rate : 075 BPM P-R Int : 152 ms QRS Dur : 088 ms QT Int : 408 ms P-R-T Axes : 036 032 042 degrees QTc Int : 455 ms Normal sinus rhythm Precordial T wave inversions Abnormal ECG When compared to the previous EKG of No significant changes seen Referred By: Generic ED Physician Electronically Signed By:Tino Samson
[2023-08-02 17:18] VITALS: BP 126/84; PULSE 74; RESP 18; TEMP 36.5; O2SAT 99; BMI 39.8
--- NOTE | 2023-08-02 17:21 | ED.CHESTPAIN ---
HPI - Chest Pain General Chief Complaint: Chest Pain Stated Complaint: chest pain, body pain Time Seen by Provider: 08/03/23 04:12 Related Data Previous Rx's Medication Instructions Recorded metoclopramide HCl 10 mg tablet 10 mg PO Q6H PRN nausea and 02/27/22 (Reglan) vomiting #14 tabs cyclobenzaprine 10 mg tablet 10 mg PO TID #10 tabs 05/18/23 naproxen 500 mg tablet (Naprosyn) 500 mg PO BID #20 tabs 05/18/23 Allergies Allergy/AdvReac Type Severity Reaction Status Date / Time No Known Allergies Allergy Verified 10/06/22 13:06 [No Known Allergies*] [facility] Past Medical History Onset Date is defined in the Problem List Problems that require an onset date and time if occurred within 24 hrs of arrival to the ED Aortic Dissection and Rupture; Neurologic impairment; Cardiopulmonary Arrest; Endotracheal Intubation; Insertion or Replacement of Mechanical Circulatory Assist Device Medical History No significant medical problems Social History Social History Alcohol intake: never Patient Tobacco Use Status: Never used Tobacco Smoked in Last 30 Days: No Use of substances other than those prescribed or required for medical reasons: No Advance Directives: No Advance Directives Information Provided: No Current occupational status: unemployed Physical Exam Vital Signs: Vital Signs: Last Vital Signs Temp 97.8 F 08/03/23 06:07 Pulse 59 08/03/23 06:07 Resp 16 08/03/23 06:07 BP 175/92 H 08/03/23 06:07 Pulse Ox 100 08/03/23 06:07 O2 Del Method Room Air 08/03/23 06:07 BMI result Body Mass Index 39.8 Course Course Course Narrative: This is an RME: Additional HPI, ROS, PE not included below will be deferred to primary provider. this is a 53-year-old female, with no known medical problems, presenting to the emergency department with complaints of chest pain since yesterday. plan: Labs, EKG, viral swabs, chest x-ray Medications Administered Discontinued Medications Generic Name Dose Route Start Last Admin Trade Name Freq PRN Reason Stop Dose Admin Acetaminophen 975 mg 08/03/23 05:44 08/03/23 05:55 Acetaminophen 325 Mg Tablet PO 08/03/23 05:45 975 mg ONCE ONE Administration Ibuprofen 400 mg 08/03/23 05:44 08/03/23 05:56 Ibuprofen 400 Mg Tablet PO 08/03/23 05:45 400 mg ONCE ONE Administration Lidocaine 1 patch 08/03/23 05:45 08/03/23 05:57 Lidocaine 4 % Patch Adh..Patch TRANSDERMA 08/03/23 05:46 1 patch ONCE ONE Administration Protocol Medical Decision Making Lab Data 08/02/23 17:15 08/02/23 17:15 Labs: Lab Results 08/02/23 08/03/23 Range/Units 17:15 00:20 WBC 7.9 (4.8-10.8) X10*3/uL RBC 4.28 (4.20-5.50) X10*6/uL Hgb 12.7 (12.0-16.0) g/dl Hct 38.0 (37.0-47.0) % MCV 88.8 (80.0-98.0) fL MCH 29.7 (27.0-33.0) pg MCHC 33.4 (31.0-35.0) g/dl RDW 12.2 (11.0-16.0) % Plt Count 253 (160-400) X10*3/uL MPV 9.7 (9.4-12.3) fL Immature Gran % (Auto) 0.3 (0.0-0.4) % Neut % (Auto) 64.6 (45-73) % Lymph % (Auto) 27.3 (20-40) % [place] % (Auto) 5.3 (2-11) % Eos % (Auto) 1.7 (0-4) % Baso % (Auto) 0.8 (0-2) % Lymph # (Auto) 2.2 (1.2-4.9) X10*3/uL [place] # (Auto) 0.4 (0.1-1.2) X10*3/uL Eos # (Auto) 0.1 (0.0-0.4) X10*3/uL Baso # (Auto) 0.1 (0.0-0.2) X10*3/uL Abs Immat Gran (auto) 0.02 (0.00-0.03) X10*3/uL Absolute Neuts (auto) 5.1 (2.0-8.3) x10*3/uL Absolute Nucleated RBC 0.000 (0.0-0.012) X10*3/uL Nucleated RBC % (auto) 0.0 (0.0-0.2) /100WBC Sodium 142 (135-145) mmol/L Potassium 4.1 (3.3-5.1) mmol/L Chloride 106 (96-108) mmol/L Carbon Dioxide 30 H (22-29) mmol/L Anion Gap 10 L (12-20) BUN 17 H (9-16) mg/dL Creatinine 1.23 (0.5-1.4) mg/dL Estim Creat Clear Calc 53.6 Estimated GFR 46 Random Glucose 102 (60-115) mg/dL Calcium 9.7 (8.4-10.2) mg/dL Total Bilirubin 0.2 (0.0-1.0) mg/dL AST 25 (5-31) U/L ALT 20 (0-31) U/L Alkaline Phosphatase 77 (39-117) U/L Troponin I High Sens < 2.7 (<3.5-17.0) ng/L Total Protein 7.7 (6.5-8.0) g/dL Albumin 4.2 (3.5-5.0) g/dL Influenza Type A (PCR) NEGATIVE (Negative) Influenza Type B (PCR) NEGATIVE (Negative) RSV RNA Qual (PCR) NEGATIVE (Negative) SARS-CoV-2 RNA (RT-PCR) NEGATIVE (Negative) Discharge Plan Discharge Clinical Impression: Musculoskeletal pain Patient Disposition: Home, Self-Care Instructions: Musculoskeletal Pain (ED) Additional Instructions: 1. Reanudar todos los medicamentos caseros seg?n lo recetado. 2. Recomiendo Tylenol/ibuprofeno de venta erick seg?n sea necesario para controlar el dolor. 3. Satinder un seguimiento con hernadez m?dico de atenci?n primaria hoy. Regrese a la rhiannon de emergencias si los s?ntomas empeoran. 1. Resume all home medications as prescribed. 2. I recommend [id number] Tylenol/ibuprofen as needed for pain control 3. Follow-up with your primary care doctor today. Return to the ER for any worsening symptoms. Prescriptions: No Action metoclopramide HCl [Reglan] 10 mg tablet 10 mg PO Q6H PRN (Reason: nausea and vomiting) Qty: 14 0RF cyclobenzaprine 10 mg tablet 10 mg PO TID Qty: 10 0RF naproxen [Naprosyn] 500 mg tablet 500 mg PO BID Qty: 20 0RF Stand Alone Forms: Work/School Release Interventions: ED Discharge Assessment Last Done: 08/03/23 07:32 Discharge Date/Time: 08/03/23 07:33 Print Language: Guatemalan
[2023-08-02 17:31] LABS: MANUAL DIFF FLAG NO
[2023-08-02 17:34] LABS: Basophils Absolute Auto 0.1 X10*3/uL (0.0-0.2); Basophils Percent Auto 0.8 % (0-2); Eosinophils Absolute Auto 0.1 X10*3/uL (0.0-0.4); Eosinophils Percent Auto 1.7 % (0-4); Hemoglobin 12.7 g/dl (12.0-16.0); Imm Gran Abs Auto 0.02 X10*3/uL (0.00-0.03); Imm Gran Pct Auto 0.3 % (0.0-0.4); Lymphocytes Absolute Auto 2.2 X10*3/uL (1.2-4.9); Lymphocytes Percent Auto 27.3 % (20-40); Mean Corpuscular HGB Conc 33.4 g/dl (31.0-35.0); Mean Corpuscular Hemoglobin 29.7 pg (27.0-33.0); Mean Corpuscular Volume 88.8 fL (80.0-98.0); Mean Platelet Volume 9.7 fL (9.4-12.3); Monocytes Absolute Auto 0.4 X10*3/uL (0.1-1.2); Monocytes Percent Auto 5.3 % (2-11); Neutrophils Absolute Auto 5.1 x10*3/uL (2.0-8.3); Neutrophils Percent Auto 64.6 % (45-73); Platelet Count 253 X10*3/uL (160-400); Red Blood Count 4.28 X10*6/uL (4.20-5.50); Red Cell Distribution Width 12.2 % (11.0-16.0); White Blood Count 7.9 X10*3/uL (4.8-10.8)
[2023-08-02 17:51] LABS: Alanine Aminotransferase 20 U/L (0-31); Albumin Level 4.2 g/dL (3.5-5.0); Alkaline Phosphatase 77 U/L (39-117); Anion Gap 10 (12-20); Aspartate Amino Transferase 25 U/L (5-31); Bilirubin Total 0.2 mg/dL (0.0-1.0); Blood Urea Nitrogen 17 mg/dL (9-16); Calcium 9.7 mg/dL (8.4-10.2); Carbon Dioxide 30 mmol/L (22-29); Chloride 106 mmol/L (96-108); Creatinine Clr Calc Pharmacy 53.6; Estimated Glomerular Filt Rate 46; Glucose Random 102 mg/dL (60-115); Potassium 4.1 mmol/L (3.3-5.1); Sodium 142 mmol/L (135-145); Total Protein 7.7 g/dL (6.5-8.0)
[2023-08-02 17:59] LABS: Troponin-I High Sensitivity < 2.7 ng/L (<3.5-17.0)
[2023-08-03 01:05] LABS: Influenza A PCR NEGATIVE (Negative); Influenza B PCR NEGATIVE (Negative); Resp Syncy Virus RNA Qual PCR NEGATIVE (Negative); SARS COV2 PCR INHOUSE NEGATIVE (Negative)
[2023-08-03 02:25] VITALS: BP 148/84; PULSE 67; RESP 20; TEMP 36.8; O2SAT 98
--- NOTE | 2023-08-03 03:45 | PC.NURSE ---
pt has generalized pain to her head right side of chest and lower back. pt has ice pack to her right upper chest.
[2023-08-03 04:09] VITALS: BP 140/93; PULSE 115; RESP 16; TEMP 36.8; O2SAT 98
[2023-08-03] MEDS: Acetaminophen 325 MG TABLET 975 MG PO (05:55)
[2023-08-03] MEDS: Ibuprofen 400 MG TABLET PO (05:56)
[2023-08-03] MEDS: Lidocaine 4 % Patch ADH..PATCH 1 PATCH TRANSDERMA (05:57)
[2023-08-03 06:07] VITALS: BP 175/92; PULSE 59; RESP 16; TEMP 36.6; O2SAT 100
== END 2023-08-03 07:33 | disposition home or self-care (01) ==
PROVIDERS: Physician Assistant Medical; Emergency Provider Student in an Organized Health Care Education/Training Program
DX: M79.18 Myalgia, other site (principal); Z20.822 Contact with and (suspected) exposure to COVID-19; Z20.828 Contact with and (suspected) exposure to other viral communicable diseases
CPT/HCPCS: 0241U; 36415; 71046; 80053; 84484; 85025; 93005; 99284

== ENCOUNTER → 2023-08-02 16:20 | Outpatient (BNV) | payer OTHER, SELFPAY | PROVIDERS: Emergency Provider Student in an Organized Health Care Education/Training Program; Visit Provider Internal Medicine Cardiovascular Disease | DX: R94.31 Abnormal electrocardiogram [ECG] [EKG] (principal) | CPT/HCPCS: 93010 ==

== ENCOUNTER → 2023-09-23 15:17 | Outpatient (RCR) | payer OTHER, SELFPAY ==
--- NOTE | 2022-08-24 14:21 | MHC.OT.EP ---
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 X-rays were obtained in the ER and pt. was issued a finger splint. Pt. presents with ongoing pain rated 9/10, stiffness in hand/wrist, and difficulty performing ADL's/IADL's. Pt would benefit from skilled OT services to address noted barriers and work on digit ROM, pain management and strengthening as tolerated. Frequency and Duration: The patient will be seen 2x/wk for 4 weeks Short Term Goals: Pain free w/ BADL's and IADL's Improve right wrist ROM to WNL's Make full composite fist with R hand Improve gross grasp >15# Records Management Engineer Goals: Same as above Treatment Plan: Therapeutic Exercise Therapeutic Activity Home Exercise Program Patient Education Ultrasound Paraffin Fluidotherapy MHP Cold Packs Joint Mobilization Soft Tissue Mobilization Electronically Signed By: Genesis Schmidt MS OTR/L Please Sign and return to therapist. Thank you once again for your referral.
== END | disposition home or self-care (01) ==
LOC: HO.OT 08-23 11:19
PROVIDERS: Visit Provider Physician Assistant
DX: S60.031D Contusion of right middle finger without damage to nail, subsequent encounter (principal)
CPT/HCPCS: 97035; 97110; 97165

== ENCOUNTER 2024-05-23 16:10 | Observation (INO) | payer OTHER, SELFPAY ==
--- NOTE | 2024-05-23 | ECG_ITS ---
Test Reason : syncope Blood Pressure : / mmHG Vent. Rate : 060 BPM Atrial Rate : 060 BPM P-R Int : 190 ms QRS Dur : 090 ms QT Int : 416 ms P-R-T Axes : 040 005 019 degrees QTc Int : 416 ms Normal sinus rhythm Normal ECG When compared with ECG of 02-AUG-2023 17:03, No significant change was found Referred By: Joseph Rucker Electronically Signed By:Tino Samson
--- NOTE | ~2024-05-23 | CT_ITS ---
EXAMINATION: CT HEAD WITHOUT CONTRAST CT CERVICAL SPINE WITHOUT CONTRAST CLINICAL INFORMATION: Fall, pain COMPARISON: None. TECHNIQUE: Contiguous axial imaging was performed from the skull base to vertex without intravenous administration of contrast. In addition, helical noncontrast CT imaging was acquired through the cervical spine and source images were reviewed along with axial reconstructions and sagittal and coronal MPRs. DOSE LOWERING TECHNIQUES: This CT examination was performed using dose optimization techniques as appropriate, variously including the following: - Automated exposure control - Adjustment of mA and/or kV according to patient size (this includes techniques or standardized protocols for targeted exams were dose is matched to indication/reason for exam; i.e. extremities or head) - Use of degenerative construction technique DLP: 1274 mGy-cm FINDINGS: HEAD: No intracranial mass, hemorrhage, or midline shift is visualized. The ventricles and sulci are age-appropriate. No extra-axial collections are identified. The paranasal sinuses are well aerated. CERVICAL SPINE: There is no evidence of acute cervical spine fracture. Vertebral bodies remain normal in height, intervertebral disc spaces are preserved, and alignment is anatomic. No pre- or paravertebral soft tissue abnormality is identified. Limited assessment of the lung apices is unremarkable. CT/CT head/brain wo IV con IMPRESSION: 1. No acute intracranial pathology. 2. No CT evidence of acute cervical spine fracture or traumatic subluxation Electronically signed by: Negar Naidu MD 05/23/2024 09:07 PM EDT
--- NOTE | ~2024-05-23 | CT_ITS ---
EXAMINATION: CT CERVICAL SPINE WITHOUT CONTRAST CLINICAL INFORMATION: Fall pain COMPARISON: X-rays of the cervical spine May 2023 TECHNIQUE: CT scan cervical spine is performed with reconstruction imaging performed at the acquisition workstation. This CT examination was performed using dose optimization techniques as appropriate, variously including the following: *Automated exposure control *Adjustment of mA and/or kV according to patient size (this includes techniques or standardized protocols for targeted exams where dose is matched to indication/reason for exam; i.e. extremities or head) *Use of iterative reconstruction technique DLP: 531 mGy-cm FINDINGS: Multilevel bodies normally aligned with normal height. Disc spaces normal. Facets: Small well-corticated ossific fragment measuring 3 mm adjacent to the anterior aspect of the right facet joint compatible with ossicle or old ununited fracture fragment. Facets otherwise unremarkable. Surrounding soft tissues normal. CT/CT cervical spine wo IV con IMPRESSION: 1. No definite acute abnormality. 2. Small well-corticated ossific fragment adjacent to the anterior aspect of the right facet joint compatible with ossicle or old ununited fracture fragment. Acute fracture very unlikely Fleischner guidelines were followed. Electronically signed by: Malik Sheehan MD 05/23/2024 09:04 PM EDT
--- NOTE | ~2024-05-23 | CT_ITS ---
EXAMINATION: CT Chest, Abdomen, and Pelvis CLINICAL INFORMATION: Fall, pain COMPARISON: None TECHNIQUE: Helical computed tomography was performed from the inferior neck through the pubic symphysis after administration of 85 mL of Omnipaque 350 intravenous contrast. Multiplanar reconstructions are available for interpretation. DOSE LOWERING TECHNIQUES: This CT examination was performed using dose optimization techniques as appropriate, variously including the following: - Automated exposure control - Adjustment of mA and/or kV according to patient size (this includes techniques or standardized protocols for targeted exams were dose is matched to indication/reason for exam; i.e. extremities or head) - Use of degenerative construction technique Total DLP is 1224 mGy*cm. FINDINGS: Lungs: The lung parenchyma is normal bilaterally. There is no pulmonary parenchymal mass, consolidation, ground-glass attenuation, or discrete suspicious pulmonary nodule. Airways: The central airways are patent. The peripheral airways are normal. There is no bronchiectasis. Pleura: The pleural surfaces are normal bilaterally. There is no pleural effusion. There is no pneumothorax. Mediastinum/Kylie: There are no pathologically enlarged mediastinal or hilar lymph nodes. Cardiovascular: The heart is globally normal in size. The thoracic aorta is normal in course and caliber. The main pulmonary artery is normal in caliber. There is no pericardial effusion or pericardial thickening. Liver: Normal in size and attenuation. No focal lesions. Gallbladder and bile ducts: The gallbladder is normal. No intrahepatic or extrahepatic biliary ductal dilatation. Spleen: Normal in size and attenuation. Pancreas: Unremarkable. Adrenal glands: Unremarkable. Right kidney: The right kidney is normal. There is no hydronephrosis or hydroureter. Left kidney: The left kidney is normal. There is no hydronephrosis or hydroureter. Lymph nodes: There is no lymphadenopathy in the abdomen or pelvis. Gastrointestinal tract: The stomach, small, and large bowel are normal in course and caliber. The appendix is identified and is within normal limits. Urinary bladder: The bladder is normal. Pelvic organs: Multiple uterine fibroids. Vasculature: The abdominal aorta is normal in course and caliber. Additional findings: There is no intraperitoneal free air or fluid. Soft tissues: Unremarkable. Osseous structures: Anterolisthesis of L4-L5. CT/CT abdomen pelvis w IV con IMPRESSION: 1. No acute traumatic injury. 2. Multiple uterine fibroids. Electronically signed by: Negar Naidu MD 05/23/2024 09:14 PM EDT RP
[2024-05-23 16:14] VITALS: BP 132/72; PULSE 73; O2SAT 97
[2024-05-23 16:18] VITALS: BMI 33.5
[2024-05-23 16:35] LABS: Glucose, Whole Blood 57 mg/dL (60-115)
[2024-05-23] MEDS: Dextrose 10 % 250 ML 750 ML IV (16:40)
--- NOTE | 2024-05-23 16:51 | ED.NEUROSD ---
HPI - Neuro Symptoms/Deficit General Chief Complaint: Neuro Symptoms/Deficit Stated Complaint: fall x1wk, now head/neck/ L arm/back pain,weakness Time Seen by Provider: 05/23/24 16:20 History of Present Illness ED Provider: Alka LEONARD Narrative: 54-year-old female with past medical history of hypertension presenting for headache nausea and generalized weakness. Patient states that she suffered a fall approximately 1-2 weeks ago and hurt her back in the process and this morning she woke up around 4am with headache, diffuse weakness and lightheadedness. Patient reportedly drove herself to an urgent care was subsequently brought here where she still complaining of headache and diffuse weakness. Patient also endorses back pain, chills, nausea, photophobia however denies urinary symptoms, fevers, chills, vomiting. Related Data Previous Rx's ?Medication ?Instructions ?Recorded metoclopramide HCl 10 mg tablet 10 mg PO Q6H PRN nausea and 02/27/22 (Reglan) vomiting #14 tabs cyclobenzaprine 10 mg tablet 10 mg PO TID #10 tabs 05/18/23 naproxen 500 mg tablet (Naprosyn) 500 mg PO BID #20 tabs 05/18/23 Allergies Allergy/AdvReac Type Severity Reaction Status Date / Time No Known Allergies Allergy Verified 05/23/24 16:28 [No Known Allergies*] Review of Systems Review of Systems: Patient endorses headache, lightheadedness, chills, weakness, nausea, photophobia Yes all other systems are reviewed and are negative [facility] Past Medical History Source: old records reviewed Medical History No significant medical problems Social History Social History Alcohol intake: never Patient Tobacco Use Status: Never used Tobacco Smoked in Last 30 Days: No Use of substances other than those prescribed or required for medical reasons: No Advance Directives: No Advance Directives Information Provided: No Do you have a plan to hurt others: No Plan Current occupational status: unemployed Physical Exam Vital Signs: Vital Signs: Last Vital Signs Temp 98.3 F 05/23/24 21:47 Pulse 61 05/23/24 21:47 Resp 12 05/23/24 21:47 BP 170/98 H 10/23/24 21:47 Pulse Ox 99 05/23/24 21:47 O2 Del Method Room Air 05/23/24 21:47 BMI result Body Mass Index 33.5 Patient is ill-appearing She is alert and oriented x4 however somnolent Lungs clear to auscultation bilaterally with unlabored breathing Normal S1-S2 regular rate and rhythm Abdomen is soft, nondistended with mild lower quadrant tenderness to palpation No focal neurologic deficits appreciated; patient moving all extremities; pupils equal and reactive to light Medications Administered Generic Name Dose Route Start Last Admin Trade Name Freq PRN Reason Stop Dose Admin Dextrose/Sodium Chloride 1,000 mls @ 80 mls/hr 05/23/24 19:30 05/23/24 19:56 D5ns IVCONT 80 mls/hr .[id number] ROSEMARY Administration Discontinued Medications Generic Name Dose Route Start Last Admin Trade Name Freq PRN Reason Stop Dose Admin Acetaminophen 650 mg 05/23/24 19:00 05/23/24 19:10 Acetaminophen 325 Mg Tablet PO 05/23/24 19:01 650 mg ONCE ONE Administration Dextrose 50 gm 05/23/24 19:45 05/23/24 19:56 Dextrose 50 % 25 Gm/50 Ml Syringe IVPUSH 05/23/24 19:46 50 gm ONCE ONE Administration Dextrose 250 mls @ 750 mls/hr 05/23/24 17:02 05/23/24 17:04 D10 IV 05/23/24 17:21 Infused ONCE ONE Infusion Dextrose 250 mls @ 750 mls/hr 05/23/24 19:16 05/23/24 19:28 D10 IV 05/23/24 19:35 Not Given ONCE ONE Iohexol 85 ml 05/23/24 19:52 05/23/24 19:52 Iohexol 350 Mg/Ml 100 Ml Infus..Btl IV 05/23/24 19:53 85 ml ONCE ONE Administration Medical Decision Making Medical Decision Making MDM Narrative: This is a 54-year-old female with past medical history of hypertension presenting for headache and weakness. I am concerned for the following; electrolyte/metabolic disturbance, underlying infection, UTI, pneumonia, COVID, flu, head bleed -less likely stroke given no focal neurologic deficits -labs and imaging studies ordered -patient found to be hypoglycemic to 57; D50 subsequently ordered with improvement in blood sugar -I do not appreciate head bleed or traumatic spine injury on patient's CT imaging and the Radiology interpretation is negative for bleed as well -patient became hypoglycemic again an additional D50 was given and she was started on a D5 drip -on lab work electrolytes within normal limits, normal creatinine, normal white count, H&H stable -no concern for UTI and UA -patient admitted to hospital for hypoglycemia Lab Data 05/23/24 17:28 05/23/24 17:28 Labs: Lab Results 05/23/24 05/23/24 05/23/24 Range/Units 16:30 17:23 17:28 WBC 6.2 (4.8-10.8) X10*3/uL RBC 4.24 (4.20-5.50) X10*6/uL Hgb 12.8 (12.0-16.0) g/dl Hct 38.3 (37.0-47.0) % MCV 90.3 (80.0-98.0) fL MCH 30.2 (27.0-33.0) pg MCHC 33.4 (31.0-35.0) g/dl RDW 12.5 (11.0-16.0) % Plt Count 207 (160-400) X10*3/uL MPV 9.6 (9.4-12.3) fL Immature Gran % (Auto) 0.2 (0.0-0.4) % Neut % (Auto) 61.2 (45-73) % Lymph % (Auto) 31.6 (20-40) % [place] % (Auto) 4.5 (2-11) % Eos % (Auto) 1.5 (0-4) % Baso % (Auto) 1.0 (0-2) % Lymph # (Auto) 2.0 (1.2-4.9) X10*3/uL [place] # (Auto) 0.3 (0.1-1.2) X10*3/uL Eos # (Auto) 0.1 (0.0-0.4) X10*3/uL Baso # (Auto) 0.1 (0.0-0.2) X10*3/uL Abs Immat Gran (auto) 0.01 (0.00-0.03) X10*3/uL Absolute Neuts (auto) 3.8 (2.0-8.3) x10*3/uL Absolute Nucleated RBC 0.000 (0.0-0.012) X10*3/uL Nucleated RBC % (auto) 0.0 (0.0-0.2) /100WBC Sodium 141 (135-145) mmol/L Potassium 4.4 (3.3-5.1) mmol/L Chloride 112 H (96-108) mmol/L Carbon Dioxide 24 (22-29) mmol/L Anion Gap 9 L (12-20) BUN 16 (9-16) mg/dL Creatinine 0.90 (0.5-1.4) mg/dL Estim Creat Clear Calc 82.6 Estimated GFR > 60 POC Glucose 57 L* 133 H (60-115) mg/dL Random Glucose 141 H (60-115) mg/dL Lactic Acid 1.3 (0.5-2.0) mmol/L Calcium 9.9 (8.4-10.2) mg/dL Total Bilirubin 0.4 (0.0-1.0) mg/dL AST 28 (5-31) U/L ALT 20 (0-31) U/L Alkaline Phosphatase 65 (39-117) U/L Troponin I High Sens < 2.7 (<3.5-17.0) ng/L Total Protein 7.0 (6.5-8.0) g/dL Albumin 4.0 (3.5-5.0) g/dL Urine Color Yellow Urine Appearance Clear Urine pH 6.0 (5.0-9.0) Ur Specific [place] 1.020 (1.005-1.025) Urine Protein Negative (Neg-Trace) mg/dL Urine Glucose (UA) 500 H (Negative) mg/dL Urine Ketones Negative (Negative) mg/dL Urine Blood Trace H (Negative) Urine Nitrite Negative (Negative) Ur Leukocyte Esterase Negative (Negative) Urine RBC 0-2 (0-2) /HPF Urine WBC 0-5 (0-5) /HPF Ur Squamous Epith Cells 0-2 (0-2) /HPF Urine Bacteria None Seen (None Seen) Hyaline Casts 0-2 (0-2) /LPF Influenza Type A (PCR) NEGATIVE (Negative) Influenza Type B (PCR) NEGATIVE (Negative) RSV RNA Qual (PCR) NEGATIVE (Negative) SARS-CoV-2 RNA (RT-PCR) NEGATIVE (Negative) 05/23/24 05/23/24 Range/Units 19:02 19:24 WBC (4.8-10.8) X10*3/uL RBC (4.20-5.50) X10*6/uL Hgb (12.0-16.0) g/dl Hct (37.0-47.0) % MCV (80.0-98.0) fL MCH (27.0-33.0) pg MCHC (31.0-35.0) g/dl RDW (11.0-16.0) % Plt Count (160-400) X10*3/uL MPV (9.4-12.3) fL Immature Gran % (Auto) (0.0-0.4) % Neut % (Auto) (45-73) % Lymph % (Auto) (20-40) % Bee % (Auto) (2-11) % Eos % (Auto) (0-4) % Baso % (Auto) (0-2) % Lymph # (Auto) (1.2-4.9) X10*3/uL Bee # (Auto) (0.1-1.2) X10*3/uL Eos # (Auto) (0.0-0.4) X10*3/uL Baso # (Auto) (0.0-0.2) X10*3/uL Abs Immat Gran (auto) (0.00-0.03) X10*3/uL Absolute Neuts (auto) (2.0-8.3) x10*3/uL Absolute Nucleated RBC (0.0-0.012) X10*3/uL Nucleated RBC % (auto) (0.0-0.2) /100WBC Sodium (135-145) mmol/L Potassium (3.3-5.1) mmol/L Chloride (96-108) mmol/L Carbon Dioxide (22-29) mmol/L Anion Gap (12-20) BUN (9-16) mg/dL Creatinine (0.5-1.4) mg/dL Estim Creat Clear Calc Estimated GFR POC Glucose 61 117 H (60-115) mg/dL Random Glucose (60-115) mg/dL Lactic Acid (0.5-2.0) mmol/L Calcium (8.4-10.2) mg/dL Total Bilirubin (0.0-1.0) mg/dL AST (5-31) U/L ALT (0-31) U/L Alkaline Phosphatase (39-117) U/L Troponin I High Sens (<3.5-17.0) ng/L Total Protein (6.5-8.0) g/dL Albumin (3.5-5.0) g/dL Urine Color Urine Appearance Urine pH (5.0-9.0) Ur Specific [place] (1.005-1.025) Urine Protein (Neg-Trace) mg/dL Urine Glucose (UA) (Negative) mg/dL Urine Ketones (Negative) mg/dL Urine Blood (Negative) Urine Nitrite (Negative) Ur Leukocyte Esterase (Negative) Urine RBC (0-2) /HPF Urine WBC (0-5) /HPF Ur Squamous Epith Cells (0-2) /HPF Urine Bacteria (None Seen) Hyaline Casts (0-2) /LPF Influenza Type A (PCR) (Negative) Influenza Type B (PCR) (Negative) RSV RNA Qual (PCR) (Negative) SARS-CoV-2 RNA (RT-PCR) (Negative) Discharge Plan Discharge Clinical Impression: Hypoglycemia Patient Disposition: Admitted As Inpatient Print Language: Hebrew
[2024-05-23 16:59] VITALS: BP 140/90; PULSE 59; RESP 18; TEMP 36.8; O2SAT 99
--- NOTE | 2024-05-23 17:10 | PC.NURSE ---
patient presents via EMS from urgent care,per EMS patient fell approximately one week ago, she slipped on a wet floor and fell on her back, unsure if she hit her head and unsure if patient is on blood thinners, patient is a poor historian. patient tells back wedger that she has been having weakness and numbness to left side, patient somnolent when speaking with this RN, MD to bedside to evaluate, difficult to arouse, attempted neuro exam on patient, patient needing a lot of direction to complete tasks, unable to hold left leg off of table, states there is less sensation in that leg. patient also complains of chest pain, facial numbess, no facial droop appreaciated. PERRLA however pupils appear somewhat dilated. POC obtained and noted to be in the 50s, amp of d50 verbally ordered by MD, 20g piv placed by this RN in right bicep. amp given, after 15 min BGL improved to 140s however patient still somnolent and having difficult time following directions. patient difficult stick, difficult to obtain blood work. only able to obtain one PIV a this time. patient straght catheterized for urine by this RN per MD verbal order. patient bladder drained of clear yellow urine and sent to lab. orders to be placed at this time. plan of care ongoing for patient
[2024-05-23 17:27] LABS: Glucose, Whole Blood 133 mg/dL (60-115)
[2024-05-23 17:33] LABS: MANUAL DIFF FLAG NO
[2024-05-23 17:36] LABS: Basophils Absolute Auto 0.1 X10*3/uL (0.0-0.2); Eosinophils Absolute Auto 0.1 X10*3/uL (0.0-0.4); Eosinophils Percent Auto 1.5 % (0-4); Hematocrit 38.3 % (37.0-47.0); Hemoglobin 12.8 g/dl (12.0-16.0); Imm Gran Abs Auto 0.01 X10*3/uL (0.00-0.03); Imm Gran Pct Auto 0.2 % (0.0-0.4); Lymphocytes Percent Auto 31.6 % (20-40); Mean Corpuscular HGB Conc 33.4 g/dl (31.0-35.0); Mean Corpuscular Hemoglobin 30.2 pg (27.0-33.0); Mean Corpuscular Volume 90.3 fL (80.0-98.0); Mean Platelet Volume 9.6 fL (9.4-12.3); Monocytes Absolute Auto 0.3 X10*3/uL (0.1-1.2); Monocytes Percent Auto 4.5 % (2-11); Neutrophils Absolute Auto 3.8 x10*3/uL (2.0-8.3); Neutrophils Percent Auto 61.2 % (45-73); Platelet Count 207 X10*3/uL (160-400); Red Blood Count 4.24 X10*6/uL (4.20-5.50); Red Cell Distribution Width 12.5 % (11.0-16.0); White Blood Count 6.2 X10*3/uL (4.8-10.8)
[2024-05-23 17:39] LABS: Appearance Urine Clear; Color Urine Yellow; Glucose Urine UA 500 mg/dL (Negative); Leukocyte Esterase Urine Negative (Negative); Nitrite Urine Negative (Negative); UMIC TRIGGER UACC YES; Urine Blood Trace (Negative); Urine Ketones Negative (Negative); Urine Protein Negative (Neg-Trace)
[2024-05-23 17:50] LABS: Lactic Acid 1.3 mmol/L (0.5-2.0)
[2024-05-23 17:54] LABS: Bacteria Urine None Seen (None Seen); Hyaline Casts Urine 0-2 /LPF (0-2); RBC Urine 0-2 /HPF (0-2); Squamous Epithelial Cell Urine 0-2 /HPF (0-2); WBC Urine 0-5 /HPF (0-5)
[2024-05-23 17:55] LABS: Alanine Aminotransferase 20 U/L (0-31); Alkaline Phosphatase 65 U/L (39-117); Anion Gap 9 (12-20); Aspartate Amino Transferase 28 U/L (5-31); Bilirubin Total 0.4 mg/dL (0.0-1.0); Blood Urea Nitrogen 16 mg/dL (9-16); Calcium 9.9 mg/dL (8.4-10.2); Carbon Dioxide 24 mmol/L (22-29); Chloride 112 mmol/L (96-108); Creatinine Clr Calc Pharmacy 82.6; Estimated Glomerular Filt Rate > 60; Glucose Random 141 mg/dL (60-115); Potassium 4.4 mmol/L (3.3-5.1); Sodium 141 mmol/L (135-145)
[2024-05-23 18:09] LABS: Troponin-I High Sensitivity < 2.7 ng/L (<3.5-17.0)
[2024-05-23 18:21] LABS: Influenza A PCR NEGATIVE (Negative); Influenza B PCR NEGATIVE (Negative); Resp Syncy Virus RNA Qual PCR NEGATIVE (Negative); SARS COV2 PCR INHOUSE NEGATIVE (Negative)
[2024-05-23 18:28] VITALS: BP 149/90; PULSE 59; RESP 18; TEMP 36.8; O2SAT 99
[2024-05-23 19:06] LABS: Glucose, Whole Blood 61 mg/dL (60-115)
[2024-05-23 19:10] VITALS: BP 130/87; PULSE 60; RESP 12; O2SAT 100
[2024-05-23] MEDS: Acetaminophen 325 MG TABLET 650 MG PO (19:10)
--- NOTE | 2024-05-23 19:10 | PC.NURSE ---
fence installer at bedside. pt a&ox4, respirations even and unlabored. pt noted to have POC of 61, aware. pt medicated per sep. pt reporting 10/10 headache, nursing swallow exam completed at bedside, pt has minimal delay in swallowing effort, pt able to tolerate PO fluids. aware, pt given tylenol per sep. vss.
[2024-05-23 19:29] LABS: Glucose, Whole Blood 117 mg/dL (60-115)
[2024-05-23] MEDS: iohexoL 350 MG/ML 100 ML INFUS..BTL 85 ML IV (19:52)
[2024-05-23] MEDS: Dextrose 5 % and 0.9 % NaCl 1,000 ML 80 ML IVCONT (19:56)
[2024-05-23] MEDS: Dextrose 50 % 25 GM/50 ML SYRINGE IVPUSH (19:56)
[2024-05-23 21:47] VITALS: BP 170/98; PULSE 61; RESP 12; TEMP 36.8; O2SAT 99
--- NOTE | 2024-05-23 21:57 | P.HPHOSP_ITS ---
History of Present Illness Date of Service: 05/23/24 Attending physician on admission: Chema Arellano Chief Complaint: Head and neck pain, weakness Pt is a 54-year-old female with a PMH significant for?migraines, fibromyalgia, and depression who presents to the ED with?numerous complaints, though primarily headache, back pain, and generalized weakness. Patient reports she experienced a mechanical fall 2 weeks ago when she slipped and fell backwards, hitting her head and back on the floor. Did not seek medical treatment at that time. Patient states that she has been feeling ?bad? the past few days with neck, back, and shoulder pain. Has also experienced headache and pain behind her ears, left arm and leg numbness and generalized weakness. Reports her mouth feels ?heavy and finds it difficult to speak. Also complains of hot flashes, electrical shocks , dizziness, chills, and disorientation. Has experienced nausea and abdominal cramps, but no vomiting. Additionally complains of photophobia, excessively watery eyes, and a burning sensation in her mouth. Reports had COVID 1 month prior and since then has not had any taste or much of an appetite. Occasional chest pain that is nonspecific, and also shortness a breath. In the ED pt was hypertensive as high as 170/98, vitals otherwise WNL and stable. Labs were significant for initial hypoglycemia of 57, otherwise grossly unremarkable. No leukocytosis. Stable H&H. No significant electrolyte abnormalities. Renal and hepatic function baseline. Troponin negative. UA negative for UTI. Tested negative for flu, RSV, and COVID. CT of head negative for acute intracranial pathology. CT of cervical spine negative for acute fracture or traumatic subluxation. CTA of chest negative for acute cardiopulmonary findings. CT of abdomen with multiple uterine fibroids, but negative for acute abdomen. EKG demonstrated normal sinus rhythm without significant ST elevations or depressions. Pt was treated with dextrose and acetaminophen, and placed on D5/NS drip. Pt will be admitted to the hospital under observation for generalized weakness in the setting of persistent hypoglycemia of unclear etiology. Review of Systems 2 Review of Systems: Yes all other systems are reviewed and are negative [facility] Medical History (Updated 05/23/24 @ 22:16 by MARINA Amor) Depression Migraines Fibromyalgia No significant medical problems Social History Alcohol intake: never Patient Tobacco Use Status: Never used Tobacco Smoked in Last 30 Days: No Use of substances other than those prescribed or required for medical reasons: No Advance Directives: No Advance Directives Information Provided: No Do you have a plan to hurt others: No Plan Current occupational status: unemployed Meds Allergies Allergy/AdvReac Type Severity Reaction Status Date / Time No Known Allergies Allergy Verified 05/23/24 16:28 [No Known Allergies*] Active Medications: Current Medications Acetaminophen (Acetaminophen 325 Mg Tablet) 650 mg PO Q6H PRN PRN Reason: Pain, Mild (Pain Scale 1-3), fever or headache Calcium Carbonate (Calcium Carbonate 750 Mg Tab.Chew) 750 mg PO Q4H PRN PRN Reason: Heartburn Glucose (Glucose Gel 15 Gm Gel..Gram.) 15 gm PO Q15M PRN; Protocol PRN Reason: per Hypoglycemia Standing Ord. Dextrose/Sodium Chloride (D5ns) 1,000 mls @ 80 mls/hr IVCONT .[id number] [facility] Last Admin: 05/23/24 19:56 Dose: 80 mls/hr Dextrose (D10) 250 mls @ 750 mls/hr IV Q15M PRN; Protocol PRN Reason: per Hypoglycemia Standing Ord. Magnesium Hydroxide (Milk Of Magnesia 30 Ml Oral.Susp) 30 ml PO DAILY PRN PRN Reason: Constipation Melatonin (Melatonin 3 Mg Tablet) 6 mg PO BEDTIME PRN PRN Reason: Insomnia Ondansetron HCl (Ondansetron Hcl 4 Mg/2 Ml Vial) 4 mg IVPUSH Q8H PRN PRN Reason: Nausea and Vomiting Sodium Chloride (0.9 % Sodium Chloride Flush 3 Ml Syringe) [facility] Medications ?Medication ?Instructions ?Recorded ?Confirmed ?Last Taken ?Type ferrous sulfate 325 mg (65 mg 325 mg PO DAILY 05/23/24 05/23/24 05/23/24 History iron) tablet,delayed release gabapentin 800 mg tablet 800 mg PO BID 05/23/24 05/23/24 05/23/24 History ondansetron HCl 4 mg tablet 4 mg PO Q8H PRN Nausea/Vomiting 05/23/24 05/23/24 05/23/24 History sumatriptan succinate 50 mg tablet 50 mg PO DAILY PRN Migraine 05/23/24 05/23/24 Unknown History Headache trazodone 100 mg tablet 100 mg PO BEDTIME insomnia 05/23/24 05/23/24 05/22/24 History venlafaxine 150 mg 150 mg PO DAILY 05/23/24 05/23/24 05/23/24 History capsule,extended release 24 hr Physical Exam 2 Vital Signs and Narrative: Vital Signs: Last Vital Signs Temp 98.3 F 05/23/24 21:47 Pulse 61 05/23/24 21:47 Resp 12 05/23/24 21:47 BP 170/98 H 05/23/24 21:47 Pulse Ox 99 05/23/24 21:47 O2 Del Method Room Air 05/23/24 21:47 BMI result Body Mass Index 33.5 Constitutional: Alert though with flat affect and speaking nearly in a whisper, in no acute distress. Mental Status: Oriented to person, place and time. Eyes: Pupils are equal, round, and reactive to light. Ear, Nose, and Throat: Oropharynx clear, mucous membranes moist. Ears and nose without deformities. Trachea midline. Respiratory: Clear to auscultation bilaterally. No wheezing, rales, or rhonchi. Cardiovascular: S1, S2 regular. No murmurs, rubs, or gallops. Gastrointestinal: Abdomen soft, non-distended. Diffusely tender to palpation. Normal bowel sounds. Neurologic: Cranial nerves II-XII are grossly intact bilaterally. Moves all extremities spontaneously though with global and symmetric weakness noted. Reduced sensation to light touch of left face and upper and lower extremities bilaterally. Skin: Warm, dry. Extremities: No edema. Psychiatric: Flat affect. Results Labs 05/23/24 17:28 05/23/24 17:28 Labs: Laboratory Results - last 24 hr 05/23/24 05/23/24 05/23/24 16:30 17:23 17:28 MCV 90.3 MCH 30.2 MCHC 33.4 RDW 12.5 Plt Count 207 MPV 9.6 Immature Gran % (Auto) 0.2 Neut % (Auto) 61.2 Lymph % (Auto) 31.6 Brown % (Auto) 4.5 Eos % (Auto) 1.5 Baso % (Auto) 1.0 Lymph # (Auto) 2.0 Brown # (Auto) 0.3 Eos # (Auto) 0.1 Baso # (Auto) 0.1 Abs Immat Gran (auto) 0.01 Absolute Neuts (auto) 3.8 Absolute Nucleated RBC 0.000 Nucleated RBC % (auto) 0.0 Anion Gap 9 L Estim Creat Clear Calc 82.6 Estimated GFR > 60 POC Glucose 57 L* 133 H Random Glucose 141 H Lactic Acid 1.3 Calcium 9.9 Total Bilirubin 0.4 AST 28 ALT 20 Alkaline Phosphatase 65 Troponin I High Sens < 2.7 Total Protein 7.0 Albumin 4.0 Urine Color Yellow Urine Appearance Clear Urine pH 6.0 Ur Specific Seney 1.020 Urine Protein Negative Urine Glucose (UA) 500 H Urine Ketones Negative Urine Blood Trace H Urine Nitrite Negative Ur Leukocyte Esterase Negative Urine RBC 0-2 Urine WBC 0-5 Ur Squamous Epith Cells 0-2 Urine Bacteria None Seen Hyaline Casts 0-2 Influenza Type A (PCR) NEGATIVE Influenza Type B (PCR) NEGATIVE RSV RNA Qual (PCR) NEGATIVE SARS-CoV-2 RNA (RT-PCR) NEGATIVE 05/23/24 05/23/24 19:02 19:24 MCV MCH MCHC RDW Plt Count MPV Immature Gran % (Auto) Neut % (Auto) Lymph % (Auto) Brown % (Auto) Eos % (Auto) Baso % (Auto) Lymph # (Auto) Brown # (Auto) Eos # (Auto) Baso # (Auto) Abs Immat Gran (auto) Absolute Neuts (auto) Absolute Nucleated RBC Nucleated RBC % (auto) Anion Gap Estim Creat Clear Calc Estimated GFR POC Glucose 61 117 H Random Glucose Lactic Acid Calcium Total Bilirubin AST ALT Alkaline Phosphatase Troponin I High Sens Total Protein Albumin Urine Color Urine Appearance Urine pH Ur Specific Seney Urine Protein Urine Glucose (UA) Urine Ketones Urine Blood Urine Nitrite Ur Leukocyte Esterase Urine RBC Urine WBC Ur Squamous Epith Cells Urine Bacteria Hyaline Casts Influenza Type A (PCR) Influenza Type B (PCR) RSV RNA Qual (PCR) SARS-CoV-2 RNA (RT-PCR) Imaging Radiologist's Impressions: Impressions Abdomen/Pelvis CT 05/23/24 19:30 IMPRESSION: 1. No acute traumatic injury. 2. Multiple uterine fibroids. Electronically signed by: Negar Naidu MD 05/23/2024 09:14 PM EDT RP Cervical Spine CT 05/23/24 19:30 IMPRESSION: 1. No definite acute abnormality. 2. Small well-corticated ossific fragment adjacent to the anterior aspect of the right facet joint compatible with ossicle or old ununited fracture fragment. Acute fracture very unlikely Fleischner guidelines were followed. Electronically signed by: Malik Sheehan MD 05/23/2024 09:04 PM EDT RP Chest CT 05/23/24 19:30 IMPRESSION: 1. No acute traumatic injury. 2. Multiple uterine fibroids. Electronically signed by: Negar Naidu MD 05/23/2024 09:14 PM EDT RP Head CT 05/23/24 19:30 IMPRESSION: 1. No acute intracranial pathology. 2. No CT evidence of acute cervical spine fracture or traumatic subluxation Electronically signed by: Negar Naidu MD 05/23/2024 09:07 PM EDT RP Assessment and Plan (1) Hypoglycemia: Status: Acute Plan Pt is a 54-year-old female with a PMH significant for?migraines, fibromyalgia, and depression who presents to the ED with?numerous complaints, though primarily headache, back pain, and generalized weakness. Pt will be admitted to the hospital under observation for generalized weakness in the setting of persistent hypoglycemia of unclear etiology. Persistent hypoglycemia Initial POC 57 improved to 133 after dextrose but then declined to 61 Treated with dextrose in the ED with rebound hypoglycemia, started on D5/NS Unclear etiology Continue D5/NS @ 80mls/hr Will check TSH, random cortisol in the morning Monitor POCs Generalized weakness Patient with a multitude of other complaints Reports mechanical fall at home 2 weeks prior In the setting of above All other labs WNL or negative; CT of head, C-spine, chest, and abdomen negative for acute findings Treat as above; no indication at this time for additional workup or imaging PT consult Fibromyalgia Continue gabapentin Depression Continue venlafaxine Full Code Attending:?Dr. Arellano DVT Prophylaxis: Lovenox Patient will be admitted to the hospital under observation for generalized weakness in the setting of persistent hypoglycemia that will require administration of D5 IVF and close monitoring of blood glucose levels. Quality Stroke Does the patient have a stroke diagnosis?: No VTE Prior VTE?: No VTE Risk Level:: Medical - moderate - high VTE Device Contraindication: Treatment Not Indicated VTE Drug Contraindication: N/A - Med Ordered
--- NOTE | 2024-05-23 22:23 | PC.NURSE ---
dr ramirez aware of high BP, no new orders at this time.
--- NOTE | 2024-05-23 22:24 | PHA.MEDREC ---
Addendum entered by Clarisse Smallwood [facility] 05/24/24 10:48: called [facility] pharmacy and spoke to proian who read over what the patient has had filled and no blood pressure medication was in fill history. Addendum entered by Nicole Jara [facility] 05/23/24 22:49: Reviewed by [facility]. When asking pt and fmaily about Vitamin C, they denied she takes this (even though claims states to take with iron). Morning team to follow up with pt's pharmacy. Original Note: Pharmacy Consult ? Medication Reconciliation Pharmacy has completed the medication reconciliation. 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 Patient seemed a little confused about some medications and the patient and family at bedside states there is no one else to confirm but Robert Cotton. Patient confirmed she is taking an Ferrous Sulfate 325mg tab and the patient states she takes it once a day even tho claims directions are for every other day an patient states shes been taking once daily for a while not . She also confirmed she takes her Gabapentin 800mg tab 1 BID and in claims its written for TID and when I asked more she stated her Dr just changed that on her in the last month the patient has been taking it BID. The patient had on hand a Sumatriptan 50mg tablet taking 1 tab as needed for migraines on hand I was able to confirm and she also has Ondansentron 4mg tabs taking 1 BID and the patient and the patient family both state and confirm that she is taking that for migraines, I found that strange and I asked more but again they state the shes been using it for the migraines supposedly and only the Sumatriptan 50mg tab only when absolutely needed. In the Dr notes for patient the patient told them they were taking a Hypertension/HBP medication and while doing the med rec the patient confirmed that she is on one but did no know the name and stated her history should be in her chart but after looking in claims we had nothing for HBP, I asked more on it and the patient states it is being filled at [facility] on [address]. Morning Pharmacy staff will confirm with [facility] and see if patient is on any HBP medications. The patient confirmed she took her medications this morning.
[2024-05-23 22:32] LABS: Glucose, Whole Blood 79 mg/dL (60-115)
[2024-05-23] MEDS: Enoxaparin Sodium 40 MG/0.4 ML SYRINGE SUBCUT (22:46)
[2024-05-23 22:47] VITALS: BP 147/83; PULSE 65; RESP 14
--- NOTE | 2024-05-23 22:57 | PC.NURSE ---
aware of pt POC, pt given PO fluids at this time.
[2024-05-23 23:32] LABS: Glucose, Whole Blood 150 mg/dL (60-115)
[2024-05-24] VITALS (7 sets, daily range): BP systolic 119–159; BP diastolic 64–82; PULSE 57–83; RESP 16–20; TEMP 36–36.6; O2SAT 94–100; BMI 32.3
[2024-05-24] MEDS: Acetaminophen 325 MG TABLET 650 MG PO (00:36)
[2024-05-24] MEDS: Melatonin 3 MG TABLET 6 MG PO ×2 (00:37→19:56)
[2024-05-24 03:28] LABS: Glucose, Whole Blood 118 mg/dL (60-115)
[2024-05-24] MEDS: Lidocaine 4 % Patch ADH..PATCH 1 PATCH TRANSDERMA ×2 (03:45→19:54)
[2024-05-24] MEDS: traZODone HCL 100 MG TABLET PO ×2 (03:46→19:54)
[2024-05-24] MEDS: Dextrose 5 % and 0.9 % NaCl 1,000 ML 80 ML IVCONT (06:32)
[2024-05-24 06:36] LABS: MANUAL DIFF FLAG NO
[2024-05-24 06:51] LABS: Basophils Absolute Auto 0.1 X10*3/uL (0.0-0.2); Eosinophils Absolute Auto 0.1 X10*3/uL (0.0-0.4); Eosinophils Percent Auto 1.7 % (0-4); Hematocrit 37.8 % (37.0-47.0); Imm Gran Abs Auto 0.01 X10*3/uL (0.00-0.03); Imm Gran Pct Auto 0.1 % (0.0-0.4); Lymphocytes Absolute Auto 2.1 X10*3/uL (1.2-4.9); Lymphocytes Percent Auto 29.8 % (20-40); Mean Corpuscular HGB Conc 34.4 g/dl (31.0-35.0); Mean Corpuscular Hemoglobin 30.5 pg (27.0-33.0); Mean Corpuscular Volume 88.7 fL (80.0-98.0); Monocytes Absolute Auto 0.4 X10*3/uL (0.1-1.2); Monocytes Percent Auto 5.6 % (2-11); Neutrophils Absolute Auto 4.4 x10*3/uL (2.0-8.3); Neutrophils Percent Auto 61.8 % (45-73); Platelet Count 245 X10*3/uL (160-400); Red Blood Count 4.26 X10*6/uL (4.20-5.50); Red Cell Distribution Width 12.4 % (11.0-16.0); White Blood Count 7.2 X10*3/uL (4.8-10.8)
[2024-05-24 06:54] LABS: Glucose, Whole Blood 147 mg/dL (60-115)
[2024-05-24 07:00] LABS: Anion Gap 10 (12-20); Blood Urea Nitrogen 12 mg/dL (9-16); Calcium 9.2 mg/dL (8.4-10.2); Carbon Dioxide 23 mmol/L (22-29); Chloride 112 mmol/L (96-108); Creatinine Clr Calc Pharmacy 91.1; Estimated Glomerular Filt Rate > 60; Glucose Random 91 mg/dL (60-115); Potassium 3.6 mmol/L (3.3-5.1); Sodium 141 mmol/L (135-145)
[2024-05-24 07:11] LABS: Glucose, Whole Blood 103 mg/dL (60-115)
[2024-05-24 07:25] LABS: Cortisol Random 2.3 ug/dL; Thyroid Stimulating Hormone 3.85 uIU/mL (0.32-4.0)
[2024-05-24] MEDS: Venlafaxine HCl ER 150 MG CAP.ER.24H PO (09:16)
[2024-05-24] MEDS: SUMAtriptan succinate 50 MG TABLET PO (09:17)
[2024-05-24] MEDS: Gabapentin 400 MG CAPSULE PO ×2 (09:17→19:53)
[2024-05-24] MEDS: Ferrous Sulfate 324 MG TABLET.DR PO (09:17)
[2024-05-24 10:34] LABS: Estimated Average Glucose 97 mg/dL; Hemoglobin A1C 105.3768 umol/L; Total Hemoglobin (HGBA1C) 3345.7395 umol/L
[2024-05-24] MEDS: Omeprazole 20 MG CAPSULE.DR PO (10:58)
[2024-05-24] MEDS: diazePAM 2 MG TABLET PO (10:58)
[2024-05-24] MEDS: methocarbamoL 750 MG TABLET PO ×3 (10:58→19:54)
[2024-05-24] MEDS: Butalb/Acetamin/Caff 50/325/40 TABLET 2 TAB PO (10:59)
[2024-05-24] MEDS: Ibuprofen 400 MG TABLET PO ×2 (11:02→16:51)
--- NOTE | 2024-05-24 11:06 | P.PNIM_ITS ---
Subjective Subjective Date of Service: 05/24/24 Interval History: seen and evaluated this morning complaining of headache and all body pain No more incidents of Low Glu no other overnight events Review of Systems Review of Systems: Yes all other systems are reviewed and are negative Physical Exam 2 Vital Signs: Vital Signs: Last Vital Signs Temp 96.8 F 05/24/24 07:06 Pulse 59 05/24/24 07:06 Resp 16 05/24/24 07:06 BP 123/78 05/24/24 07:06 Pulse Ox 97 05/24/24 07:06 O2 Del Method Room Air 05/24/24 07:06 BMI result Body Mass Index 32.3 Const: Other: Constitutional : Awake, interactive, not in distress Neck : Normal inspection, Supple Cardiovascular : RRR, no JVP, no lower extremity edema Respiratory : good bilateral air entry, no crackles, wheezes or rhonchi Gastrointestinal: soft, lax, Normal bowel sounds, Non tender Skin : Warm, Dry Neurological : Alert & oriented x3, No focal deficit Objective Data Active Medications Acetaminophen (Acetaminophen 325 Mg Tablet) 650 mg PO Q6H PRN PRN Reason: Pain, Mild (Pain Scale 1-3), fever or headache Last Admin: 05/24/24 00:36 Dose: 650 mg Documented By: TERRANCE Calcium Carbonate (Calcium Carbonate 750 Mg Tab.Chew) 750 mg PO Q4H PRN PRN Reason: Heartburn Enoxaparin Sodium (Enoxaparin Sodium 40 Mg/0.4 Ml Syringe) 40 mg SUBCUT Q24H [facility] Last Admin: 05/23/24 22:46 Dose: 40 mg Documented By: ESTUARDO Gabapentin (Gabapentin 400 Mg Capsule) 400 mg PO BID [facility] Last Admin: 05/24/24 09:17 Dose: 400 mg Documented By: VELASQUEZ Glucose (Glucose Gel 15 Gm Gel..Gram.) 15 gm PO Q15M PRN; Protocol PRN Reason: per Hypoglycemia Standing Ord. Dextrose (D10) 250 mls @ 750 mls/hr IV Q15M PRN; Protocol PRN Reason: per Hypoglycemia Standing Ord. Ibuprofen (Ibuprofen 400 Mg Tablet) 400 mg PO TIDWM [facility] Last Admin: 05/24/24 11:02 Dose: 400 mg Documented By: VELASUQEZ Magnesium Hydroxide (Milk Of Magnesia 30 Ml Oral.Susp) 30 ml PO DAILY PRN PRN Reason: Constipation Melatonin (Melatonin 3 Mg Tablet) 6 mg PO BEDTIME PRN PRN Reason: Insomnia Last Admin: 05/24/24 00:37 Dose: 6 mg Documented By: TERRANCE Methocarbamol (Methocarbamol 750 Mg Tablet) 750 mg PO TID [facility] Last Admin: 05/24/24 10:58 Dose: 750 mg Documented By: VELASQUEZ Omeprazole (Omeprazole 20 Mg Capsule.Dr) 20 mg PO DAILY@0630 [facility] Last Admin: 05/24/24 10:58 Dose: 20 mg Documented By: VELASQUEZ Ondansetron HCl (Ondansetron Hcl 4 Mg/2 Ml Vial) 4 mg IVPUSH Q8H PRN PRN Reason: Nausea and Vomiting Sodium Chloride (0.9 % Sodium Chloride Flush 3 Ml Syringe) 3 ml IVFLUSH QSHIFT [facility] Last Admin: 05/24/24 09:22 Dose: Not Given Documented By: VELASQUEZ Non-Admin Reason: IV Running Sumatriptan Succinate (Sumatriptan Succinate 50 Mg Tablet) 50 mg PO DAILY PRN PRN Reason: Migraine Headache Last Admin: 05/24/24 09:17 Dose: 50 mg Documented By: VELASQUEZ Topiramate (Topiramate 25 Mg Tablet) 25 mg PO BID PRN PRN Reason: Headache Trazodone HCl (Trazodone Hcl 100 Mg Tablet) 100 mg PO BEDTIME [facility] Venlafaxine HCl (Venlafaxine Hcl Er 150 Mg Cap.Er.24h) 150 mg PO DAILY [facility] Last Admin: 05/24/24 09:16 Dose: 150 mg Documented By: VELASQUEZ Labs 05/24/24 05:38 05/24/24 05:38 Labs: Laboratory Results - last 24 hr 05/23/24 05/23/24 05/23/24 16:30 16:48 17:23 MCV MCH MCHC RDW Plt Count MPV Immature Gran % (Auto) Neut % (Auto) Lymph % (Auto) [place] % (Auto) Eos % (Auto) Baso % (Auto) Lymph # (Auto) [place] # (Auto) Eos # (Auto) Baso # (Auto) Abs Immat Gran (auto) Absolute Neuts (auto) Absolute Nucleated RBC Nucleated RBC % (auto) Anion Gap Estim Creat Clear Calc Estimated GFR POC Glucose 57 L* 147 H 133 H Random Glucose Estimat Average Glucose Hemoglobin A1c % Lactic Acid Calcium Total Bilirubin AST ALT Alkaline Phosphatase Troponin I High Sens Total Protein Albumin TSH Random Cortisol Urine Color Urine Appearance Urine pH Ur Specific [place] Urine Protein Urine Glucose (UA) Urine Ketones Urine Blood Urine Nitrite Ur Leukocyte Esterase Urine RBC Urine WBC Ur Squamous Epith Cells Urine Bacteria Hyaline Casts Influenza Type A (PCR) Influenza Type B (PCR) RSV RNA Qual (PCR) SARS-CoV-2 RNA (RT-PCR) 05/23/24 05/23/24 05/23/24 17:28 19:02 19:24 MCV 90.3 MCH 30.2 MCHC 33.4 RDW 12.5 Plt Count 207 MPV 9.6 Immature Gran % (Auto) 0.2 Neut % (Auto) 61.2 Lymph % (Auto) 31.6 [place] % (Auto) 4.5 Eos % (Auto) 1.5 Baso % (Auto) 1.0 Lymph # (Auto) 2.0 [place] # (Auto) 0.3 Eos # (Auto) 0.1 Baso # (Auto) 0.1 Abs Immat Gran (auto) 0.01 Absolute Neuts (auto) 3.8 Absolute Nucleated RBC 0.000 Nucleated RBC % (auto) 0.0 Anion Gap 9 L Estim Creat Clear Calc 82.6 Estimated GFR > 60 POC Glucose 61 117 H Random Glucose 141 H Estimat Average Glucose Hemoglobin A1c % Lactic Acid 1.3 Calcium 9.9 Total Bilirubin 0.4 AST 28 ALT 20 Alkaline Phosphatase 65 Troponin I High Sens < 2.7 Total Protein 7.0 Albumin 4.0 TSH Random Cortisol Urine Color Yellow Urine Appearance Clear Urine pH 6.0 Ur Specific [place] 1.020 Urine Protein Negative Urine Glucose (UA) 500 H Urine Ketones Negative Urine Blood Trace H Urine Nitrite Negative Ur Leukocyte Esterase Negative Urine RBC 0-2 Urine WBC 0-5 Ur Squamous Epith Cells 0-2 Urine Bacteria None Seen Hyaline Casts 0-2 Influenza Type A (PCR) NEGATIVE Influenza Type B (PCR) NEGATIVE RSV RNA Qual (PCR) NEGATIVE SARS-CoV-2 RNA (RT-PCR) NEGATIVE 05/23/24 05/23/24 05/24/24 22:29 23:28 03:24 MCV MCH MCHC RDW Plt Count MPV Immature Gran % (Auto) Neut % (Auto) Lymph % (Auto) [place] % (Auto) Eos % (Auto) Baso % (Auto) Lymph # (Auto) [place] # (Auto) Eos # (Auto) Baso # (Auto) Abs Immat Gran (auto) Absolute Neuts (auto) Absolute Nucleated RBC Nucleated RBC % (auto) Anion Gap Estim Creat Clear Calc Estimated GFR POC Glucose 79 150 H 118 H Random Glucose Estimat Average Glucose Hemoglobin A1c % Lactic Acid Calcium Total Bilirubin AST ALT Alkaline Phosphatase Troponin I High Sens Total Protein Albumin TSH Random Cortisol Urine Color Urine Appearance Urine pH Ur Specific [place] Urine Protein Urine Glucose (UA) Urine Ketones Urine Blood Urine Nitrite Ur Leukocyte Esterase Urine RBC Urine WBC Ur Squamous Epith Cells Urine Bacteria Hyaline Casts Influenza Type A (PCR) Influenza Type B (PCR) RSV RNA Qual (PCR) SARS-CoV-2 RNA (RT-PCR) 05/24/24 05/24/24 05:38 07:05 MCV 88.7 MCH 30.5 MCHC 34.4 RDW 12.4 Plt Count 245 MPV 10.0 Immature Gran % (Auto) 0.1 Neut % (Auto) 61.8 Lymph % (Auto) 29.8 [place] % (Auto) 5.6 Eos % (Auto) 1.7 Baso % (Auto) 1.0 Lymph # (Auto) 2.1 [place] # (Auto) 0.4 Eos # (Auto) 0.1 Baso # (Auto) 0.1 Abs Immat Gran (auto) 0.01 Absolute Neuts (auto) 4.4 Absolute Nucleated RBC 0.000 Nucleated RBC % (auto) 0.0 Anion Gap 10 L Estim Creat Clear Calc 91.1 Estimated GFR > 60 POC Glucose 103 Random Glucose 91 Estimat Average Glucose 97 Hemoglobin A1c % 5.0 Lactic Acid Calcium 9.2 D Total Bilirubin AST ALT Alkaline Phosphatase Troponin I High Sens Total Protein Albumin TSH 3.85 Random Cortisol 2.3 Urine Color Urine Appearance Urine pH Ur Specific [place] Urine Protein Urine Glucose (UA) Urine Ketones Urine Blood Urine Nitrite Ur Leukocyte Esterase Urine RBC Urine WBC Ur Squamous Epith Cells Urine Bacteria Hyaline Casts Influenza Type A (PCR) Influenza Type B (PCR) RSV RNA Qual (PCR) SARS-CoV-2 RNA (RT-PCR) Assessment and Plan (1) Hypoglycemia: Status: Acute (2) Generalized weakness: Status: Acute Plan Pt is a 54-year-old female with a PMH significant for?migraines, fibromyalgia, and depression who presents to the ED with?numerous complaints, though primarily headache, back pain, and generalized weakness. Pt will be admitted to the hospital under observation for generalized weakness in the setting of persistent hypoglycemia of unclear etiology. acute incident of hypoglycemia No more episodes of low Glu since last night Asymptomatic events DC D5/NS Unclear etiology, A1c of 5, Her has DM and take meds at home , she doesnt think she mistakenly took his pills check C-Peptide normal TSH, random cortisol in the morning Monitor POCs Generalized weakness, hx fibromyalgia Reports mechanical fall at home 2 weeks prior All other labs WNL or negative; CT of head, C-spine, chest, and abdomen negative for acute findings PT consult Add Ibuprofen, Methacarbamol Encourage physical activity Continue gabapentin and rest of home medications Depression Continue venlafaxine Full Code DVT Prophylaxis: Lovenox Quality Stroke Does the patient have a stroke diagnosis?: No VTE Prior VTE?: No VTE Risk Level:: Medical - moderate - high VTE Device Contraindication: Treatment Not Indicated VTE Drug Contraindication: N/A - Med Ordered
[2024-05-24] MEDS: Milk of Magnesia 30 ML ORAL.SUSP PO (11:10)
[2024-05-24 11:15] LABS: Glucose, Whole Blood 118 mg/dL (60-115)
--- NOTE | 2024-05-24 12:00 | MHC.CM.PN ---
[facility] DELIVERED PT LIVES WITH AND SON. PT USES WALKER/CANE FOR MOBILITY. + HCP NOT ACTIVE WITH A PCP, ON WAITING LIST FOR [facility] DR[facility] SINGH. DP: P.T. HAS RECOMMENDED STR. BROAD REFERRAL SEARCH FOR CENTERS LOCALLY THAT ARE CONTRACTED WITH INSURANCE. WILL NEED BLS TRANSPORT. CM WILL CONTINUE TO FOLLOW FOR THE PLAN.
[2024-05-24 15:03] LABS: Glucose, Whole Blood 97 mg/dL (60-115)
[2024-05-24] MEDS: 0.9 % Sodium Chloride Flush 3 ML SYRINGE IVFLUSH ×3 (15:13→19:57)
[2024-05-24 19:00] LABS: Glucose, Whole Blood 137 mg/dL (60-115)
[2024-05-24] MEDS: Topiramate 25 MG TABLET PO (19:56)
[2024-05-24] MEDS: Enoxaparin Sodium 40 MG/0.4 ML SYRINGE SUBCUT (21:48)
[2024-05-24 23:39] LABS: Glucose, Whole Blood 79 mg/dL (60-115)
[2024-05-25 03:11] VITALS: BP 133/86; PULSE 71; RESP 18; TEMP 36.2; O2SAT 99
--- NOTE | 2024-05-25 03:18 | MHC.PIE ---
p; pt c/o pain 10/10 to whole body. note; only prn tylenol ordered for pain 1-3 i; dr ramirez notified. new order ultram 25 mg q6 for pain 7-10. e; will cont to monitor
[2024-05-25] MEDS: traMADoL HCL 50 MG TABLET 25 MG PO (03:30)
[2024-05-25] MEDS: Omeprazole 20 MG CAPSULE.DR PO (06:24)
[2024-05-25 07:32] LABS: Glucose, Whole Blood 60 mg/dL (60-115)
[2024-05-25 07:40] VITALS: BP 155/83; PULSE 60; RESP 18; TEMP 36.1; O2SAT 100
[2024-05-25 08:14] LABS: Glucose, Whole Blood 74 mg/dL (60-115)
[2024-05-25] MEDS: Gabapentin 400 MG CAPSULE PO (08:41)
[2024-05-25] MEDS: Ibuprofen 400 MG TABLET PO ×2 (08:41→11:52)
[2024-05-25] MEDS: Venlafaxine HCl ER 150 MG CAP.ER.24H PO (08:42)
[2024-05-25] MEDS: Lidocaine 4 % Patch ADH..PATCH 1 PATCH TRANSDERMA (08:42)
[2024-05-25] MEDS: methocarbamoL 750 MG TABLET PO (08:42)
[2024-05-25] MEDS: 0.9 % Sodium Chloride Flush 3 ML SYRINGE IVFLUSH (08:44)
[2024-05-25 10:13] LABS: C Peptide 3.34 ng/mL (0.80-3.85)
[2024-05-25] MEDS: Milk of Magnesia 30 ML ORAL.SUSP PO (10:25)
--- NOTE | 2024-05-25 11:24 | P.DS_ITS ---
DS: Providers Provider Date of Service: 05/25/24 Date of admission: 05/23/24 21:19 Date of discharge: 05/25/24 Primary care physician: Alexi Goodman MD DS: Diagnosis Discharge Diagnosis (1) Hypoglycemia: Status: Acute (2) Generalized weakness: Status: Acute (3) Fibromyalgia: Status: Acute (4) Physical deconditioning: Status: Acute DS: Summary Hospital Course Hospital Course: Admission note HPI Pt is a 54-year-old female with a PMH significant for?migraines, fibromyalgia, and depression who presents to the ED with?numerous complaints, though primarily headache, back pain, and generalized weakness. Patient reports she experienced a mechanical fall 2 weeks ago when she slipped and fell backwards, hitting her head and back on the floor. Did not seek medical treatment at that time. Patient states that she has been feeling ?bad? the past few days with neck, back, and shoulder pain. Has also experienced headache and pain behind her ears, left arm and leg numbness and generalized weakness. Reports her mouth feels ?heavy and finds it difficult to speak. Also complains of hot flashes, electrical shocks , dizziness, chills, and disorientation. Has experienced nausea and abdominal cramps, but no vomiting. Additionally complains of photophobia, excessively watery eyes, and a burning sensation in her mouth. Reports had COVID 1 month prior and since then has not had any taste or much of an appetite. Occasional chest pain that is nonspecific, and also shortness a breath. In the ED pt was hypertensive as high as 170/98, vitals otherwise WNL and stable. Labs were significant for initial hypoglycemia of 57, otherwise grossly unremarkable. No leukocytosis. Stable H&H. No significant electrolyte abnormalities. Renal and hepatic function baseline. Troponin negative. UA negative for UTI. Tested negative for flu, RSV, and COVID. CT of head negative for acute intracranial pathology. CT of cervical spine negative for acute fracture or traumatic subluxation. CTA of chest negative for acute cardiopulmonary findings. CT of abdomen with multiple uterine fibroids, but negative for acute abdomen. EKG demonstrated normal sinus rhythm without significant ST elevations or depressions. Pt was treated with dextrose and acetaminophen, and placed on D5/NS drip. Pt will be admitted to the hospital under observation for generalized weakness in the setting of persistent hypoglycemia of unclear etiology. Hospital course The patient was admitted for evaluation of: # Acute incident of hypoglycemia of 57 which was asymptomatic. No more episodes of low Glu since admission. She did not have any symptoms of hypoglycemia. placed on Dextrose fluids at first then tolerated diet with no recurrence. HbA1c of 5, Her has DM and take meds at home , she doesnt think she mistakenly took his pills as her C-Peptide was normal along with normal TSH, random cortisol. Advised to increase PO intake as she was not eating as much. Generalized weakness, hx fibromyalgia with reported mechanical fall at home 2 weeks prior to presentation. All other labs within normal and hadr negative; CT of head, C-spine, chest, and abdomen for acute findings. seen by PT who recommended short term rehab. sTarted on mealtime Ibuprofen, Methacarbamol and Tylenol. Will need more physical activity. Continue gabapentin and rest of home medications Discharge plan Increase physical activity and stretching as tolerated Take Tylenol and Advil with meals for the next 5 days then as needed Take muscle relaxant 3 times daily as needed Omeprazole for stomach protection and pain Lidocaine patch daily Time Attestation Discharge Coordination Time (in mins): 38 Quality: Safe Use of Opioids Does Pt have an Active Cancer Diagnosis on the Problem List?: No Quality: Stroke Does the patient have a stroke diagnosis?: No Physical Exam Vital Signs: Vital Signs: Last Vital Signs Temp 96.9 F 05/25/24 07:40 Pulse 60 05/25/24 07:40 Resp 18 05/25/24 07:40 BP 155/83 H 05/25/24 07:40 Pulse Ox 100 05/25/24 07:40 O2 Del Method Room Air 05/25/24 07:40 BMI result Body Mass Index 32.3 Const: Other: Constitutional : Awake, interactive, not in distress Neck : Normal inspection, Supple Cardiovascular : RRR, no JVP, no lower extremity edema Respiratory : good bilateral air entry, no crackles, wheezes or rhonchi Gastrointestinal: soft, lax, Normal bowel sounds, Non tender Skin : Warm, Dry Neurological : Alert & oriented x3, No focal deficit DS: Data Data Completed and Pending Labs on day of discharge: Laboratory Results - last 24 hr 05/24/24 05/24/24 05/24/24 09:02 14:58 18:56 POC Glucose 97 137 H C-Peptide 3.34 10/05/25/24 05/25/24 23:34 07:17 08:08 POC Glucose 79 60 74 C-Peptide Imaging Chest x-ray: Radiologist's impression: ITS Impressions Abdomen/Pelvis CT 05/23/24 19:30 IMPRESSION: 1. No acute traumatic injury. 2. Multiple uterine fibroids. Electronically signed by: Negar Naidu MD 05/23/2024 09:14 PM EDT RP Cervical Spine CT 05/23/24 19:30 IMPRESSION: 1. No definite acute abnormality. 2. Small well-corticated ossific fragment adjacent to the anterior aspect of the right facet joint compatible with ossicle or old ununited fracture fragment. Acute fracture very unlikely Fleischner guidelines were followed. Electronically signed by: Malik Sheehan MD 05/23/2024 09:04 PM EDT RP Chest CT 05/23/24 19:30 IMPRESSION: 1. No acute traumatic injury. 2. Multiple uterine fibroids. Electronically signed by: Negar Naidu MD 05/23/2024 09:14 PM EDT RP Head CT 05/23/24 19:30 IMPRESSION: 1. No acute intracranial pathology. 2. No CT evidence of acute cervical spine fracture or traumatic subluxation Electronically signed by: Negar Naidu MD 05/23/2024 09:07 PM EDT RP Discharge Plan Discharge Anticipated Discharge Date/Time: 05/25/24 11:11 Patient Disposition: [facility] Discharge Diagnosis: Generalized weakness Physical deconditioning Referrals: [facility] [Outside] Alexi Goodman MD [Primary Care Provider] - 1 Week Discharge Medications: New acetaminophen 325 mg Tablet 650 mg PO TIDWM Qty: 30 0RF lidocaine [Lidocaine Pain Relief] 4 % Adhesive Patch,Medicated 1 patch transdermal DAILY Qty: 30 0RF Protocol: Apply to: Apply to: neck and back methocarbamol 750 mg Tablet 750 mg PO TID PRN (Reason: Muscle stiffness) Qty: 30 0RF ibuprofen 400 mg Tablet 400 mg PO TIDWM Qty: 15 0RF omeprazole 20 mg Capsule,Delayed Release(Dr/Ec) 20 mg PO DAILY@0630 Qty: 90 0RF Continued venlafaxine 150 mg capsule,extended release 24hr 150 mg PO DAILY gabapentin 800 mg tablet 800 mg PO BID trazodone 100 mg tablet 100 mg PO BEDTIME ferrous sulfate 325 mg (65 mg iron) tablet,delayed release (DR/EC) 325 mg PO DAILY ondansetron HCl 4 mg tablet 4 mg PO Q8H PRN (Reason: Nausea/Vomiting) sumatriptan succinate 50 mg tablet 50 mg PO DAILY PRN (Reason: Migraine Headache) topiramate 25 mg tablet 25 mg PO BID PRN (Reason: Headache) Discharge Orders: Discharge Order (Routine); Ordered 05/25/24 Ordered By: Phillip Trivedi Diet: Advance to usual diet Activity on Discharge: As tolerated Stand Alone Forms: Patient Portal Discharge page Print Language: Bahraini Care Plan Goals: No signs of sugar control problem as your readings were within acceptable range and you did not have any symptoms to suggest low sugar levels. we encourage you for more oral intake. Increase physical activity and stretching as tolerated Take Tylenol and Advil with meals for the next 5 days then as needed Take muscle relaxant 3 times daily as needed Omeprazole for stomach protection and pain Lidocaine patch daily Health Concerns: Physical deconditioning Weakness Plan of Treatment: Pain medications physical activity Assessment: as above
[2024-05-25 11:33] LABS: Glucose, Whole Blood 105 mg/dL (60-115)
--- NOTE | 2024-05-25 11:49 | MHC.CM.PN ---
PT CLEARED TO DC TODAY [facility] HAS INSURANCE AUTH CM MET WITH PT WITH A BLASTING ENTRY SPECIALIST SHE IS AWARE OF DC AND BLS TRANSPORT BOOKED FOR 1300 HOURS WITH [facility]
[2024-05-25 11:53] VITALS: BP 155/83; PULSE 60; O2SAT 100
== END 2024-05-25 14:34 | disposition skilled nursing facility (03) ==
LOC: HO.ED 21:51 → HO.EDOVER 21:52 → HO.S3 23:25
PROVIDERS: Admitting Provider Student in an Organized Health Care Education/Training Program; Emergency Provider Student in an Organized Health Care Education/Training Program; PCP Family Medicine; Visit Provider Student in an Organized Health Care Education/Training Program
DX: E16.2 Hypoglycemia, unspecified (principal); R53.1 Weakness; M79.7 Fibromyalgia; R53.81 Other malaise; R11.0 Nausea; R51.9 Headache, unspecified; R55 Syncope and collapse; M54.2 Cervicalgia; R10.9 Unspecified abdominal pain; R07.9 Chest pain, unspecified; Z91.81 History of falling; Z79.899 Other long term (current) drug therapy; Z03.818 Encounter for observation for suspected exposure to other biological agents ruled out
CPT/HCPCS: 0241U; 36415; 70450; 71260; 72125; 74177; 80048; 80053; 81001; 82533; 82947; 83036; 83605; 84443; 84484; 84681; 85025; 93005; 96360; 96361; 96372; 97116; 97162; 99221; 99285; J1650; Q9967

== ENCOUNTER → 2024-05-23 16:37 | Outpatient (BNV) | payer OTHER, SELFPAY | PROVIDERS: Admitting Provider Student in an Organized Health Care Education/Training Program; Emergency Provider Student in an Organized Health Care Education/Training Program; PCP Family Medicine; Visit Provider Internal Medicine Cardiovascular Disease | DX: R53.1 Weakness (principal) | CPT/HCPCS: 93010 ==

== ENCOUNTER → 2024-05-23 21:19 | Outpatient (BNV) | payer OTHER, SELFPAY | PROVIDERS: Admitting Provider Student in an Organized Health Care Education/Training Program; Emergency Provider Student in an Organized Health Care Education/Training Program; PCP Family Medicine; Visit Provider Student in an Organized Health Care Education/Training Program | DX: E16.2 Hypoglycemia, unspecified (principal); R53.1 Weakness; M79.7 Fibromyalgia; R53.81 Other malaise | CPT/HCPCS: 99222; 99232; 99239 ==

== ENCOUNTER 2024-11-26 19:21 | Emergency (ER) | payer OTHER, SELFPAY ==
--- NOTE | ~2024-11-26 | XR_ITS ---
CLINICAL HISTORY: dyspnea 1 view chest x-ray Comparison: CR/MN/SR - XR CHEST 2V - 08/02/23 18:05 EST Findings: The lungs are clear. Heart size is normal. No acute fracture. IMPRESSION: 1. No acute findings. This document has been electronically signed by: Juaquin Boateng MD, PHD on 11/26/2024 23:50:48
[2024-11-26 19:27] VITALS: BP 149/80; PULSE 73; RESP 18; TEMP 37.2; O2SAT 98; BMI 37.2
--- NOTE | 2024-11-26 19:27 | ED.GENADULT ---
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 She woke up with migraine and then started to have n/v all day. Her upper abdomen hurts. She has anxiety and feels short of breath. No fevers reported. She is not on thinners. states she has been like this with headaches before. Not able to take medications or eat today. No one else is sick at home. Patient also feels dizzy when she moves. MD complaint: headache chills n/v Onset (ago): hour(s) (12+) Location: head and abdomen Radiation: non-radiation Severity: moderate Quality: aching Pain Consistency: constant Relieving factors: other (migraine cap, rest, dark room) Exacerbating factors: other (light noise movement) Related Data Home Medications ?Medication ?Instructions ?Recorded ?Confirmed ferrous sulfate 325 mg (65 mg 325 mg PO DAILY 05/23/24 05/23/24 iron) tablet,delayed release gabapentin 800 mg tablet 800 mg PO BID 05/23/24 05/23/24 ondansetron HCl 4 mg tablet 4 mg PO Q8H PRN Nausea/Vomiting 05/23/24 05/23/24 sumatriptan succinate 50 mg tablet 50 mg PO DAILY PRN Migraine 05/23/24 05/23/24 Headache topiramate 25 mg tablet 25 mg PO BID PRN Headache 05/23/24 05/23/24 trazodone 100 mg tablet 100 mg PO BEDTIME insomnia 05/23/24 05/23/24 venlafaxine 150 mg 150 mg PO DAILY 05/23/24 05/23/24 capsule,extended release 24 hr Previous Rx's ?Medication ?Instructions ?Recorded acetaminophen 325 mg tablet 650 mg (2 x 325 mg) PO TIDWM #30 05/25/24 tabs ibuprofen 400 mg tablet 400 mg PO TIDWM #15 tabs 05/25/24 lidocaine 4 % topical patch 1 patch transdermal DAILY #30 ea 05/25/24 (Lidocaine Pain Relief) methocarbamol 750 mg tablet 750 mg PO TID PRN Muscle stiffness 05/25/24 #30 tabs omeprazole 20 mg capsule,delayed 20 mg PO DAILY@0630 #90 caps 05/25/24 release ondansetron 4 mg disintegrating 4 mg PO Q8H PRN nausea and 11/27/24 tablet vomiting #20 tabs Allergies Allergy/AdvReac Type Severity Reaction Status Date / Time No Known Allergies Allergy Verified 11/26/24 19:31 [No Known Allergies*] Review of Systems Review of Systems: Constitutional : No Fever, pos Chills, pos Fatigue ENT/Mouth : No sore throat, No Rhinorrhea Eyes: No Eye Pain, No Swelling, No Redness Cardiovascular : No Chest Pain, No SOB, No Dyspnea on Exertion Respiratory : No Cough, No Sputum Gastrointestinal : pos Nausea, pos Vomiting, No Diarrhea, pos abdominal Pain Genitourinary : No Dysuria, No Urinary Frequency, No Hematuria, Musculoskeletal : No joint pain, No Myalgias, No Joint Swelling Skin : No Skin Lesions, No rash Neuro : pos Weakness, No Numbness, No Dizziness, positive Headache Psych : pos Anxiety/Panic, No Depression Heme/Lymph: No Bruising, No Bleeding,No Lymphadenopathy Endocrine : No Polyuria, No Polydipsia All other systems reviewed and are negative [facility] Past Medical History Attestation statement: The following information was validated with the patient. Source: old records reviewed Medical History Depression Migraines Fibromyalgia No significant medical problems Social History Social History Alcohol intake: never Patient Tobacco Use Status: Never used Tobacco Advance Directives: No Advance Directives Information Provided: No Do you have a plan to hurt others: No Plan service: No Current occupational status: unemployed Physical Exam ED Vital Signs: Vital Signs - 24 hr 11/26/24 19:27 11/26/24 21:42 Temperature 98.9 F 97.3 F Pulse Rate 73 57 Respiratory Rate 18 16 Blood Pressure 149/80 H 151/79 H Pulse Oximetry 98 99 Oxygen Delivery Method Room Air Room Air BMI result Body Mass Index 37.2 Appearance: Alert. Oriented X3. No acute distress. very soft spoken Eyes: Pupils equal, round and reactive to light. ENT: Pharynx normal. wearing cold cap for migraines Neck: Normal inspection. Neck supple. no meningeal signs CVS: Normal heart rate and rhythm. Pulses normal. Respiratory: No respiratory distress. Breath sounds normal. Abdomen: Soft and very mild upper abd ttp no rebound or guarding Skin: Skin warm and dry. Normal skin color. Normal skin turgor. Extremities: No lower extremity edema. No calf ttp Neuro: Oriented X 3. No motor deficit. No sensory deficit. CN2-12 intact Course Course Course Narrative: RME, this is a rapid medical exam performed by Pete aBles please refer to primary provider for complete H&P- 54 year old female presents for evaluation of migraine headache. She reports a history of similar and reports that she has been having a headache all day. She also complains of abdominal pain, nausea, and vomiting. Plan for labs and UA. She had a CT scan of her brain in May of last year that was unremarkable Medications Administered Discontinued Medications Generic Name Dose Route Start Last Admin Trade Name Freq PRN Reason Stop Dose Admin Diphenhydramine HCl 25 mg 11/26/24 22:09 11/26/24 23:33 Diphenhydramine Hcl 50 Mg/Ml Vial IVPUSH 11/26/24 22:10 25 mg ONCE ONE Administration Lactated Ringer's 1,000 mls @ 999 mls/hr 11/26/24 22:09 11/26/24 23:33 Lr IV 11/26/24 23:09 999 mls/hr .Q1H1M ONE Administration Ketorolac Tromethamine 15 mg 11/26/24 22:09 11/26/24 23:32 Ketorolac Tromethamine 15 Mg/Ml Vial IVPUSH 11/26/24 22:10 15 mg ONCE ONE Administration Metoclopramide HCl 10 mg 11/26/24 22:09 11/26/24 23:32 Metoclopramide Hcl 10 Mg/2 Ml Vial IVPUSH 11/26/24 22:10 10 mg ONCE ONE Administration Medical Decision Making Medical Decision Making MDM Narrative: 54 yo female with PMH of fibromyalgia, GERD, migraines, who has hx of similar presentation in 2023 with admission with diagnosis of deconditioning and poor PO intake - she reports today c/o overall malaise, migraine, n/v, upper abdominal pain, weakness, dizziness, unable to eat or drink. She has had this in the past with migraines per . At this time will obtain CXR for pneumonia, viral panel, UA, labs, start on migraine cocktail. Her abdominal pain started after throwing up so low susp for acute pathology. 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 Differential Diagnosis Differential Diagnoses: The differential diagnosis associated with the presentation includes viral syndrome, migraines, GERD, dehydration, weakness, FTT Admission/Observation Consideration of admission/observation: Escalation of care including admission/observation considered feels much better able to tolerate PO Lab Data MDM Lab Attestation statement: I reviewed the patient's lab results. 11/26/24 19:44 11/26/24 19:44 Labs: Lab Results 11/26/24 11/26/24 Range/Units 19:44 19:48 WBC 8.6 (4.8-10.8) X10*3/uL RBC 4.62 (4.20-5.50) X10*6/uL Hgb 13.8 (12.0-16.0) g/dl Hct 40.9 (37.0-47.0) % MCV 88.5 (80.0-98.0) fL MCH 29.9 (27.0-33.0) pg MCHC 33.7 (31.0-35.0) g/dl RDW 11.9 (11.0-16.0) % Plt Count 189 (160-400) X10*3/uL MPV 10.1 (9.4-12.3) fL Immature Gran % (Auto) 0.2 (0.0-0.4) % Neut % (Auto) 88.1 H (45-73) % Lymph % (Auto) 10.0 L (20-40) % Mason % (Auto) 1.3 L (2-11) % Eos % (Auto) 0.1 (0-4) % Baso % (Auto) 0.3 (0-2) % Lymph # (Auto) 0.9 L (1.2-4.9) X10*3/uL Mason # (Auto) 0.1 (0.1-1.2) X10*3/uL Eos # (Auto) 0.0 (0.0-0.4) X10*3/uL Baso # (Auto) 0.0 (0.0-0.2) X10*3/uL Abs Immat Gran (auto) 0.02 (0.00-0.03) X10*3/uL Absolute Neuts (auto) 7.6 (2.0-8.3) x10*3/uL Absolute Nucleated RBC 0.000 (0.0-0.012) X10*3/uL Nucleated RBC % (auto) 0.0 (0.0-0.2) /100WBC Smear Tech's Comments VERIFIED Sodium 142 (135-145) mmol/L Potassium 4.1 (3.3-5.1) mmol/L Chloride 107 (96-108) mmol/L Carbon Dioxide 21 L (22-29) mmol/L Anion Gap 18 (12-20) BUN 15 (9-16) mg/dL Creatinine 0.80 (0.5-1.4) mg/dL Estim Creat Clear Calc 88.2 Estimated GFR > 60 POC Glucose 94 (60-115) mg/dL Random Glucose 114 (60-115) mg/dL Calcium 9.6 (8.4-10.2) mg/dL Total Bilirubin 0.4 (0.0-1.0) mg/dL AST 26 (5-31) U/L ALT 21 (0-31) U/L Alkaline Phosphatase 76 (39-117) U/L Troponin I High Sens < 2.7 (<3.5-17.0) ng/L Total Protein 7.8 (6.5-8.0) g/dL Albumin 4.4 (3.5-5.0) g/dL Lipase 38 (8-78) U/L Influenza Type A (PCR) NEGATIVE (Negative) Influenza Type B (PCR) NEGATIVE (Negative) RSV RNA Qual (PCR) NEGATIVE (Negative) SARS-CoV-2 RNA (RT-PCR) NEGATIVE (Negative) Independent Interpretation I performed an independent interpretation of an: EKG and Plain X-Ray (normal ) Interpretation: Rate: 67 Rhythm: NSR Hawkins: normal Normal P waves. Normal LOLIS. Normal QRS complex. ST T wave : no SANDY, inverted t waves V1 and V2 qTC: 448 prior studies: same as prior The study has been interpreted contemporaneously by me. . Radiology Impression Discussion of test interpretation with radiology: I have reviewed the radiologist's reading. Independent Historian Clinical information obtained from an independent historian. History obtained from or confirmed by: Spouse External Record Review External record reviewed: Inpatient record and Outpatient record Prescription Management I considered prescription management with: Other Discharge Plan Discharge Clinical Impression: Generalized weakness Migraine Qualifiers: Migraine type: unspecified Status migrainosus presence: without status migrainosus Intractability: not intractable Qualified Code(s): G43.909 - Migraine, unspecified, not intractable, without status migrainosus Nausea & vomiting Qualifiers: Vomiting type: unspecified Qualified Code(s): R11.2 - Nausea with vomiting, unspecified Patient Disposition: Home, Self-Care Instructions: Migraine Headache (ED), Acute Nausea and Vomiting (ED), Weakness (ED) Additional Instructions: labs, chest xray, viral panel all reassuring rest and stay hydrated eat a bland diet for 48 hours and then advance slowly return for any worsening symptoms or concerns Prescriptions: New ondansetron 4 mg tablet,disintegrating 4 mg PO Q8H PRN (Reason: nausea and vomiting) Qty: 20 0RF No Action venlafaxine 150 mg capsule,extended release 24hr 150 mg PO DAILY gabapentin 800 mg tablet 800 mg PO BID trazodone 100 mg tablet 100 mg PO BEDTIME ferrous sulfate 325 mg (65 mg iron) tablet,delayed release (DR/EC) 325 mg PO DAILY ondansetron HCl 4 mg tablet 4 mg PO Q8H PRN (Reason: Nausea/Vomiting) sumatriptan succinate 50 mg tablet 50 mg PO DAILY PRN (Reason: Migraine Headache) topiramate 25 mg tablet 25 mg PO BID PRN (Reason: Headache) acetaminophen 325 mg Tablet 650 mg PO TIDWM Qty: 30 0RF lidocaine [Lidocaine Pain Relief] 4 % Adhesive Patch,Medicated 1 patch transdermal DAILY Qty: 30 0RF Protocol: Apply to: Apply to: neck and back methocarbamol 750 mg Tablet 750 mg PO TID PRN (Reason: Muscle stiffness) Qty: 30 0RF ibuprofen 400 mg Tablet 400 mg PO TIDWM Qty: 15 0RF omeprazole 20 mg Capsule,Delayed Release(Dr/Ec) 20 mg PO DAILY@0630 Qty: 90 0RF Print Language: Vietnamese
--- NOTE | 2024-11-26 19:30 | ECG_ITS ---
Test Reason : cp Blood Pressure : */* mmHG Vent. Rate : 67 BPM Atrial Rate : 67 BPM P-R Int : 178 ms QRS Dur : 88 ms QT Int : 424 ms P-R-T Axes : 38 16 29 degrees QTcB Int : 448 ms Normal sinus rhythm Normal ECG When compared with ECG of 23-May-2024 16:37, No significant change was found Referred By: Pierre Bales Electronically Signed By: Tino Samson
--- OUTSIDE RECORDS SUMMARY | 2024-11-26 19:51 | XMS_ITS | Clinical Summary ---
Author Organization [employer] Address [address] [facility] [address] [place] [address] Care Team Providers Care [employer] Testing [employer] Leader Name Role Phone Unavailable Primary Care Provider Unavailabl e Allergies No known active allergies Medications docusate sodium (Colace) 100 MG capsule Take 1 capsule by mouth if needed in the morning and at bedtime for constipation. 10/19/19 25 Active DULoxetine (Cymbalta) [address] capsule Take 30 mg by mouth Once per day. 10/27/19 25 Active famotidine (Pepcid) 20 MG tablet Take 1 tablet by mouth Once per day. 10/26/19 25 Active gabapentin (Neurontin) 800 MG tablet Take 800 mg by mouth 3 times daily. 08/28/19 25 Active SUMAtriptan (Imitrex) 50 MG tablet Take 25 mg by mouth 1 (one) time if needed for migraine. 10/01/19 25 Active topiramate 50 MG tablet Take 50 mg by mouth Once per day. 10/11/19 25 Active traZODone (Desyrel) 100 MG tablet Take 100 mg by mouth at bedtime. 11/12/19 25 Active venlafaxine XR (Effexor XR) 75 MG 24 hr capsule Take 75 mg by mouth Once per day. 12/20/19 24 Active ziprasidone (Geodon) 20 MG capsule Take 20 mg by mouth with breakfast and with evening meal. 11/14/19 25 Active zolpidem (Ambien) 5 MG tablet Take 5 mg by mouth if needed at bedtime for sleep. 10/27/19 25 Active dicyclomine (Bentyl) 10 MG capsule Take 2 capsules (20 mg) by mouth 4 times daily. 120 capsule 1 11/21/19 25 026 Active sucralfate (Carafate) 1 g tablet Take 1 tablet (1 g) by mouth before breakfast, before lunch, before evening meal, and at bedtime. 120 tablet 1 11/21/19 25 025 Active sucralfate (Carafate) 1 g tablet Take 1 tablet (1 g) by mouth before breakfast, before lunch, before evening meal, and at bedtime. 120 tablet 11 11/21/19 25 025 Discontinued Active Problems Problem Noted Date Diagnosed Date Encounter to establish care 11/20/2024 Assessment & Plan (11/20/2024 6:00 PM EDT): Last pcp visit 3 months ago at [facility] Pmhx: fibromylgia, migraine, depression, sciatic back pain Pshx:- All: - Meds: Intractable chronic migraine with aura and without status migrainosus 05/23/2024 Fibromyalgia 05/23/2024 Depression 05/23/2024 Migraine with aura and witho ut status migrainosus, not intractable 05/23/2024 Insomnia 05/23/2024 Encounters Date Type Department Care Team Description 11/20/2024 5:40 PM EDT Office Visit [facility] [address] [place] [address] Enrique Bhatt MD Encounter to establish care (Primary Dx); Chronic abdominal pain; Black stool 10/30/2024 Telephone [facility] [address] [place] [phone] Nicholas Belle MD New patient appt. 10/26/2024 Telephone [facility] [address] [place] [phone] Nicholas Belle MD New pt appt 10/12/2024 Population Health Risk Score [facility] [address] [phone] Provider, Population Health Generic from Last 3 Months Social History Tobacco Use Types Packs/Day Years Used Date Smoking Tobacco: Never Passive Smoke Exposure: Never Smokeless Tobacco: Never Tobacco Cessation:Counseling Given: Not Answered Comments Unknown Sex and Gender Information Value Date Recorded Sex Assigned at Female 05/31/2022 10:29 AM EDT Legal Sex Female 10:29 AM EDT Gender Identity Female 05/23/2024 2:21 PM EDT Sexual Orientation Straight 05/23/2024 2: 21 PM EDT Last Filed Vital Signs Vital Sign Reading Time Taken Comments Blood Pressure 160/100 11/20/2024 5:18 PM EDT Pulse 66 11/20/2024 5:18 PM EDT Temperature 37 ??C (98.6 ??F) 11/20/2024 5:18 PM EDT Respiratory Rate 17 11/20/2024 5:18 PM EDT Oxygen Saturation 98% 11/20/2024 5:18 PM EDT Inhaled Oxygen Concentration - - Weight 95.4 kg (210 lb 6 oz) 11/20/2024 5:18 PM EDT Height - - Body Mass Index - - Plan of Treatment Upcoming Encounters Date Type Department Care Team (Late st Contact Info) Description 03/05/2025 9:15 AM EDT Office Visit [facility] [address], [place] [phone] Delmy Pastrana MD [address], [place] [phone] Health Maintenance Due Date Last Done Comments CT Colonography 1970 Colonoscopy 1970 Colorectal Cancer Screening 1970 Depression Screening 1970 FIT DNA/Cologuard 1970 FIT 1970 FOBT 1970 HIV Screening 1970 SDOH Screening 1970 Sigmoidoscopy 1970 Alcohol/Substance Use Screening 1982 Hepatitis C Screening 1988 DTaP/Tdap/Td Vaccines (1 - Tdap) 1989 Hepatitis B Vaccines (1 of 3 - 19+ 3-dose series) 1989 Pap Smear 1991 Cervical Cancer Screening 2000 HPV/Cotest 2000 Mammogram 2010 Pneumococcal Vaccine: 50+ Ye ars (1 of 1 - PCV) 2020 Zoster Vaccines (1 of 2) 2020 COVID-19 Vaccine (1 - 2023-2 5 season) 2024 Influenza Vaccine (#1) 2024 Tobacco Screening 11/20/2025 11/20/2024 RSV Patients and Pa tients Aged 60 years or older (1 - 1-dose 75+ series) 2045 HIB Vaccines Aged Out No longer eligi ble based on patient's age to complete this topic HPV Vaccines Aged Out No longer eligi ble based on patient's age to complete this topic Hepatitis A Vaccines Aged Out No long er eligible based on patient's age to complete this topic IPV Vaccines Aged Out No longer eligi ble based on patient's age to complete this topic Meningococcal Vaccine Aged Out No elizabeth toshia eligible based on patient's age to complete this topic RSV under 20 months Aged Out No longe r eligible based on patient's age to complete this topic Rotavirus Vaccines Aged Out No longer eligible based on patient's age to complete this topic Procedures Procedure Name Priority Date/Time Associated Diagnosis Comments POCT HEMOGLOBIN Routine 11/20/2024 6:18 PM EDT Black stool from Last 3 Months Results * POCT Hemoglobin (11/20/2024 6:18 PM EDT) Hemoglobin 12.9 12.0 - 15.0 QC Media Lot # [id number] Lot# Expiration Date [id number] Blood 11/20/2024 6:18 PM EDT Enrique Wagner MD POINT OF CARE TEST ENTER/EDIT ORDERABLES Final Result from Last 3 Months [facility]
[2024-11-26 19:52] LABS: Basophils Percent Auto 0.3 % (0-2); Eosinophils Percent Auto 0.1 % (0-4); Hematocrit 40.9 % (37.0-47.0); Hemoglobin 13.8 g/dl (12.0-16.0); Imm Gran Abs Auto 0.02 X10*3/uL (0.00-0.03); Imm Gran Pct Auto 0.2 % (0.0-0.4); Lymphocytes Absolute Auto 0.9 X10*3/uL (1.2-4.9); MANUAL DIFF FLAG SCAN; Mean Corpuscular HGB Conc 33.7 g/dl (31.0-35.0); Mean Corpuscular Hemoglobin 29.9 pg (27.0-33.0); Mean Corpuscular Volume 88.5 fL (80.0-98.0); Mean Platelet Volume 10.1 fL (9.4-12.3); Monocytes Absolute Auto 0.1 X10*3/uL (0.1-1.2); Monocytes Percent Auto 1.3 % (2-11); Neutrophils Absolute Auto 7.6 x10*3/uL (2.0-8.3); Neutrophils Percent Auto 88.1 % (45-73); PLT CLUMP 1; Red Blood Count 4.62 X10*6/uL (4.20-5.50); Red Cell Distribution Width 11.9 % (11.0-16.0); SCAN SMEAR FLAG 1; White Blood Count 8.6 X10*3/uL (4.8-10.8)
[2024-11-26 19:54] LABS: Glucose, Whole Blood 94 mg/dL (60-115)
[2024-11-26 20:06] LABS: Alanine Aminotransferase 21 U/L (0-31); Albumin Level 4.4 g/dL (3.5-5.0); Alkaline Phosphatase 76 U/L (39-117); Anion Gap 18 (12-20); Aspartate Amino Transferase 26 U/L (5-31); Bilirubin Total 0.4 mg/dL (0.0-1.0); Blood Urea Nitrogen 15 mg/dL (9-16); Calcium 9.6 mg/dL (8.4-10.2); Carbon Dioxide 21 mmol/L (22-29); Chloride 107 mmol/L (96-108); Creatinine Clr Calc Pharmacy 88.2; Estimated Glomerular Filt Rate > 60; Glucose Random 114 mg/dL (60-115); Lipase 38 U/L (8-78); Potassium 4.1 mmol/L (3.3-5.1); Sodium 142 mmol/L (135-145); Total Protein 7.8 g/dL (6.5-8.0)
[2024-11-26 20:12] LABS: Platelet Count 189 X10*3/uL (160-400); SLIDE REVIEW VERIFIED
[2024-11-26 20:29] LABS: Influenza A PCR NEGATIVE (Negative); Influenza B PCR NEGATIVE (Negative); Resp Syncy Virus RNA Qual PCR NEGATIVE (Negative); SARS COV2 PCR INHOUSE NEGATIVE (Negative)
[2024-11-26 21:42] VITALS: BP 151/79; PULSE 57; RESP 16; TEMP 36.3; O2SAT 99
[2024-11-26 22:31] LABS: Troponin-I High Sensitivity < 2.7 ng/L (<3.5-17.0)
--- NOTE | 2024-11-26 22:45 | PC.NURSE ---
this rn and second rn attempted x2 for iv line. awaiting for provider to attempt US guided iv line
[2024-11-26] MEDS: Metoclopramide HCl 10 MG/2 ML VIAL IVPUSH (23:32)
[2024-11-26] MEDS: Ketorolac Tromethamine 15 MG/ML VIAL IVPUSH (23:32)
[2024-11-26] MEDS: Lactated Ringers 1,000 ML 999 ML IV (23:33)
[2024-11-26] MEDS: diphenhydrAMINE HCL 50 MG/ML VIAL 25 MG IVPUSH (23:33)
--- NOTE | 2024-11-27 01:44 | PC.NURSE ---
po challenge pt tolerated well finishing ivf pt pending discharge
[2024-11-27 02:00] VITALS: BP 141/79; PULSE 57; RESP 16; TEMP 37.3; O2SAT 100
[2024-11-27 02:15] VITALS: BP 141/79; PULSE 57; RESP 16; TEMP 37.3; O2SAT 100
== END 2024-11-27 02:20 | disposition home or self-care (01) ==
PROVIDERS: Physician Assistant; Emergency Provider Emergency Medicine; PCP Family Medicine
DX: G43.909 Migraine, unspecified, not intractable, without status migrainosus (principal); R11.2 Nausea with vomiting, unspecified; F41.9 Anxiety disorder, unspecified; R07.89 Other chest pain; Z03.818 Encounter for observation for suspected exposure to other biological agents ruled out; Z79.899 Other long term (current) drug therapy
CPT/HCPCS: 0241U; 71045; 80053; 82947; 83690; 84484; 85025; 93005; 96361; 96374; 96375; 99284; 99285; J1200; J1885; J2765; J7120

== ENCOUNTER → 2024-11-26 19:30 | Outpatient (BNV) | payer OTHER, SELFPAY | PROVIDERS: Emergency Provider Emergency Medicine; PCP Family Medicine; Visit Provider Internal Medicine Cardiovascular Disease | DX: R07.9 Chest pain, unspecified (principal) | CPT/HCPCS: 93010 ==

== ENCOUNTER → 2024-11-26 22:09 | Outpatient (BNV) | payer OTHER, SELFPAY | PROVIDERS: Emergency Provider Emergency Medicine; PCP Family Medicine; Visit Provider General Practice | DX: R06.00 Dyspnea, unspecified (principal) | CPT/HCPCS: 71045 ==

== ENCOUNTER 2025-03-12 13:49 | Outpatient (REF) | payer OTHER, MEDICAID, SELFPAY ==
[2025-03-12 17:47] LABS: MANUAL DIFF FLAG NO
[2025-03-12 17:48] LABS: Hematocrit 37.8 % (37.0-47.0); Hemoglobin 12.7 g/dl (12.0-16.0); Imm Gran Abs Auto 0.02 X10*3/uL (0.00-0.03); Imm Gran Pct Auto 0.3 % (0.0-0.4); Lymphocytes Absolute Auto 1.8 X10*3/uL (1.2-4.9); Mean Corpuscular HGB Conc 33.6 g/dl (31.0-35.0); Mean Corpuscular Hemoglobin 29.7 pg (27.0-33.0); Mean Corpuscular Volume 88.3 fL (80.0-98.0); NRBC Abs Auto 0.000 X10*3/uL (0.0-0.012); NRBC Pct Auto 0.0 /100WBC (0.0-0.2); Platelet Count 257 X10*3/uL (160-400); Red Blood Count 4.28 X10*6/uL (4.20-5.50); White Blood Count 5.8 X10*3/uL (4.8-10.8)
[2025-03-12 18:14] LABS: Alanine Aminotransferase 16 U/L (0-31); Albumin Level 4.1 g/dL (3.5-5.0); Alkaline Phosphatase 66 U/L (39-117); Anion Gap 12 (12-20); Aspartate Amino Transferase 31 U/L (5-31); Blood Urea Nitrogen 12 mg/dL (9-16); Calcium 9.3 mg/dL (8.4-10.2); Carbon Dioxide 23 mmol/L (22-29); Chloride 112 mmol/L (96-108); Cholesterol 138 mg/dL (<200); Estimated Glomerular Filt Rate > 60; HDL Cholesterol 50 mg/dL (>40); Potassium 3.9 mmol/L (3.3-5.1); Sodium 143 mmol/L (135-145); Total Protein 7.1 g/dL (6.5-8.0); Triglycerides 75 mg/dL (<150)
[2025-03-12 18:34] LABS: Uric Acid 4.4 mg/dL (2.4-5.7)
[2025-03-12 19:04] LABS: Reflex LDLD? No
[2025-03-13 04:22] LABS: HBS Num1 1.21 mIU/mL (0-7.99); HBc Num1 0.05 S/CO (0.00-0.79); HBsAGNum1 0.36 S/CO (0.00-0.99); HIV Num 1 0.05 S/CO (0.00-0.99); Hepatitis A Antibody IgM 0.22 Index (0-0.79); Hepatitis B Surface Antigen Negative (Negative); ~HepC Num1 0.07 S/CO (0.00-0.79); ~Hepatitis A Antibody IgM Nonreactive (Nonreactive); ~Hepatitis B Surface Antibody NONREACTIVE (Nonreactive); ~Hepatitis C Antibody Nonreactive (Nonreactive)
== END 2025-03-12 13:50 | disposition home or self-care (01) ==
LOC: HO.HHCL 13:49
PROVIDERS: PCP Internal Medicine; Visit Provider Internal Medicine
DX: Z11.4 Encounter for screening for human immunodeficiency virus [HIV] (principal); Z11.59 Encounter for screening for other viral diseases; K92.1 Melena; G56.01 Carpal tunnel syndrome, right upper limb; F32.A Depression, unspecified; R73.01 Impaired fasting glucose; Z13.6 Encounter for screening for cardiovascular disorders; Z13.21 Encounter for screening for nutritional disorder
CPT/HCPCS: 36415; 80053; 80061; 82306; 84443; 84550; 85025; 86431; 86704; 86706; 86709; 86803; 87340; 87389

== ENCOUNTER 2025-03-21 13:52 | Outpatient (REF) | payer OTHER, MEDICAID, SELFPAY ==
--- NOTE | ~2025-03-21 | XR_ITS ---
EXAMINATION: XR LUMBOSACRAL SPINE CLINICAL INFORMATION: lwoer back pain acute on chronic COMPARISON: April 10, 2020 TECHNIQUE: Three views of the lumbosacral spine. FINDINGS: There are vestigial ribs at T12. There are 5 nonrib-bearing lumbar segments. There is stable mild grade 1 anterolisthesis at L4-5. There is facet sclerosis at L3-4, L4-5 and L5-S1. XR/XR lumbar spine 2-3V IMPRESSION: Facet osteoarthritis is present at L3-4, L4-5, and L5-S1. There is stable mild grade 1 anterolisthesis at L4-5. Electronically signed by: Jack German MD 03/21/2025 02:20 PM EDT
--- OUTSIDE RECORDS SUMMARY | 2025-03-21 14:01 | XMS_ITS | Encounter Summary ---
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 Phone Delmy Pastrana MD Primary Care Provider + Reason for Visit * Reason Comments Care Management [facility] follow up call Encounter Details Date Type Department Care Team ([facility] st Contact Info) Description 03/20/2025 Patient Outreach [facility] [address] [place], [place] [phone] Delmy Pastrana MD [address] [place], [place] [phone] Care Management ([facility] follow up call) Social History Tobacco Use Types Packs/Day Years Used Date Smoking Tobacco: Never Passive Smoke Exposure: Never Smokeless Tobacco: Never Alcohol Use Standard Drinks/Week Comments Never 0 (1 standard drink = 0.6 oz pur e alcohol) Depression Answer Date Recorded Patient Health Questionnaire-9 Score 20 03/06/2025 Patient Health Questionnaire-9 Score 20 03/06/2025 Last PHQ-9: Questionnaire Data Not on file 0 03/06/2025 Housing Stability Answer Date Recorded What is your housing situation today? I have dorinda gallagher 12/26/[address] you li ve. Do you have problems with any of the following? None of the above 12/26/2024 Food Insecurity Answer Date Recorded Within the past 12 months, y ou worried that your food would run out before you got money to buy more: Never True 12/26/2024 Within the past 12 months,th e food you bought just didn't last and you didn't have enough money to get more: Never True Transportation Answer Date Recorded In the past 12 months, has l ack of transportation kept you from medical appts, meetings, work or from getting things needed for daily living? No 12/26/2024 Utilities Answer Date Recorded In the past 12 months, has t he electric, gas, oil or water company threatened to shut off services in your home? No 12/26/2024 Depression Answer Date Recorded Patient Health Questionnaire-2 Score 6 03/06/2025 Internet Access Answer Date Recorded Internet Access Q1 Yes 12/26/2024 Internet Access Q2 Not on file 12/26/2024 Comments Unknown Sex and Gender Information Value Date Recorded Sex Assigned at Female 05/31/2022 10:29 AM EDT Legal Sex Female 10:29 AM EDT Gender Identity Female 05/23/2024 2:21 PM EDT Sexual Orientation Straight 05/23/2024 2: 21 PM EDT documented as of this encounter Progress Notes * Julianna Roman - 03/20/2025 11:52 AM EDT GRACIELA Roman RN and CHW Ada Blakely placed outbound call to patient. Patient's name, DOBand address confirmed. Patient states is doing well with no recent illnesses or emergency room visits. Patient continues to have anxiety and depression, but is compiant with her biweekly therapy appointments and endorses that the session help her. She also continues to have migraine headaches with n umbness to the left hand, left leg and kips, patinet was advised to come to the walk in center or go to the emergency room to be evaulated. Patient states that she is compliant with medications as her son has been reminding her. Patient checks her blood sugar and blood pressures at home. [facility] reports one low blood sugar, but she ate something and her sugar went up. Patient was reminder of upcomingappointments, denies barriers to attending. CM notified the patient that they have been enrolled in the Care Management Program for 60 days. CMupdated the patient on the progress that has been made toward goals in the past two months. CM questioned patient about what else they would like to work as the patient will be graduated from the program within the next month. No further questions or concerns. CM reinforced direct contact information or CHW for any additional questions or concerns. A follow up call will be placed within 10 days, patient agrees with plan. documented in this encounter Plan of Treatment Upcoming Encounters Date Type Department Care Team (Late st Contact Info) Description 04/05/2025 11:00 AM EDT Medication Management [facility] [address] [place] [phone] Zonia Wise PharmD [address] [place] [phone] 05/16/2025 12:00 PM EDT Office Visit [facility] [address] [place] [phone] Delmy Pastrana MD [address] [place] [address] [phone] documented as of this encounter Visit Diagnoses Not on filedocumented in this encounter Additional Health Concerns Assessment Noted Time PHQ-9 Depression Total Score: 20 025 8:44 AM EDT documented as of this encounter Care Teams Rotary Shear Cutter Relationship Specialty Start Date End Date Delmy Pastrana MD [address] [place] [address] [phone] PCP - General Internal Medicine 03/05/25 documented as of this encounter
== END 2025-03-21 13:53 | disposition home or self-care (01) ==
LOC: HO.HHCX 13:52
PROVIDERS: PCP Internal Medicine; Visit Provider Student in an Organized Health Care Education/Training Program
DX: M54.16 Radiculopathy, lumbar region (principal)
CPT/HCPCS: 72100

== ENCOUNTER → 2025-03-21 14:02 | Outpatient (BNV) | payer OTHER, MEDICAID, SELFPAY | PROVIDERS: PCP Internal Medicine; Visit Provider Radiology Diagnostic Radiology | DX: M46.97 Unspecified inflammatory spondylopathy, lumbosacral region (principal) | CPT/HCPCS: 72100 ==

== ENCOUNTER 2025-03-22 12:55 | Outpatient (REF) | payer OTHER, MEDICAID, SELFPAY ==
--- NOTE | ~2025-03-22 | US_ITS ---
EXAMINATION: US TRIPLEX LOWER EXTREMITY, BILATERAL CLINICAL INFORMATION: Bilateral lower extremity edema and pain. COMPARISON: None available. TECHNIQUE: Color-flow triplex imaging with spectral analysis and compression Doppler were performed on the bilateral lower extremities. FINDINGS: Respiratory variation, normal compression and augmented flow are noted throughout the bilateral lower extremities. The visualized common femoral vein, superficial femoral vein, profunda femoral vein, popliteal vein and midcalf peroneal and posterior tibial venous segments show no evidence of deep venous thrombosis bilaterally. There is no Gordon's cyst. US/US venous duplex LE BI IMPRESSION: No evidence of deep venous thrombosis involving the bilateral lower extremities.i Electronically signed by: Eleazar Aquino MD 03/22/2025 01:45 PM EDT
--- OUTSIDE RECORDS SUMMARY | 2025-03-22 12:58 | XMS_ITS | Encounter Summary ---
Author Organization [employer] Address [address] [facility] [address] [place] [address] Care Team Providers Care Superintendent Logging Name Role Phone Delmy Pastrana MD Primary Care Provider + Reason for Visit * Reason Comments Care Management C3CM follow up call Encounter Details Date Type Department Care Team ([facility] st Contact Info) Description 03/20/2025 Patient Outreach [facility] [address] [place], [place] [phone] Delmy Pastrana MD [address] [place], [place] [phone] Care Management (C3CM follow up call) Social [...] blood sugar and blood pressures at home. [facility] reports one low blood sugar, but she [...] Description 04/05/2025 11:00 AM EDT Medication Management [facility] [address] [place] [phone] Zonia Wise PharmD [address] [place] [phone] 05/16/2025 12:00 PM EDT Office Visit [facility] [address] [place] [phone] Delmy Pastrana MD [address] [place] [address] [phone] documented as of this encounter Visit Diagnoses Not on filedocumented in this encounter Additional Health Concerns Assessment Noted Time PHQ-9 Depression Total Score: 20 025 8:44 AM EDT documented as of this encounter Care Teams Superintendent Logging Relationship Specialty Start Date End Date Delmy Pastrana MD [address] [place] [address] [phone] PCP - General Internal Medicine 03/05/25 documented as of this encounter
== END 2025-03-22 12:56 | disposition home or self-care (01) ==
LOC: HO.US 12:55
PROVIDERS: PCP Student in an Organized Health Care Education/Training Program; Visit Provider Student in an Organized Health Care Education/Training Program
DX: R60.0 Localized edema (principal)
CPT/HCPCS: 93970

== ENCOUNTER → 2025-03-22 12:57 | Outpatient (BNV) | payer OTHER, MEDICAID, SELFPAY | PROVIDERS: PCP Student in an Organized Health Care Education/Training Program; Visit Provider Radiology Diagnostic Radiology | DX: M79.661 Pain in right lower leg (principal); M79.662 Pain in left lower leg; R60.0 Localized edema | CPT/HCPCS: 93970 ==

== ENCOUNTER 2025-04-15 11:39 | Outpatient (AMB) | payer OTHER, MEDICAID, SELFPAY ==
--- NOTE | 2025-04-15 11:45 | MHC.OFFVIS ---
Vital Signs 04/15/25 11:49 Height 5 ft 3 in Weight 211 lb 10.3 oz BMI 37.5 BP 126/62 Blood Pressure Location Lt brachial Position Sitting Pulse 71 Intake Visit Reasons: Chronic Abdominal Pains Intake Note: Pratibha presents in the office as a new patient for chronic abd pains, CC: She states she has pains in the stomach and denies diarrhea. States that she has lots of pains in the epigastric region and all over - she also has discomfort in the LRQ. She states that she is constantly passing gas and unable to digest her food all the way. Client Technical Support Associate Required: Yes Client Technical Support Associate Name: [id number] Allergies No Known Allergies (No Known Allergies*) Allergy (Verified 04/15/25 11:49) HPI Comments Details: 55 y.o F with PMH of fibromyalgia, GERD, migraines who is here for abd pain. Reports lower abd pain uriel on R side ongoing x year assoc with nausea and loss of appetite. Also has constipation assoc with straining. Passes a hard BM 3 times a week. No blood in stool. Path aunt: colon cancer in her 40s. Has never had a colonoscopy. Labs reviewed, no anemia. [facility] Medical History Depression Migraines Fibromyalgia No significant medical problems Social History Alcohol intake: never Patient Tobacco Use Status: Never used Tobacco service: No Current occupational status: unemployed Review of Systems Const All systems reviewed & are unremarkable except as noted in HPI and below Physical Exam Exam Exam: No apparent distress Nonicteric Abdomen soft, nondistended Alert and oriented x3, normal gait Vital Signs: Last Vital Signs Pulse 71 04/15/25 11:49 BP 126/62 04/15/25 11:49 BMI result Body Mass Index 37.5 Assessment & Plan Assessment & Plan (1) Lower abdominal pain: Code(s): R10.30 - Lower abdominal pain, unspecified Category: Medical (2) Constipation: Code(s): K59.00 - Constipation, unspecified Category: Medical (3) Family history of colon cancer: Code(s): Z80.0 - Family history of malignant neoplasm of digestive organs Plan Pt with recent change in bowel habits in the setting of family history of colon cancer. Plan: -colonoscopy to be booked -CT abdomen and pelvis with contrast -patient was also counseled on measures to manage constipation including increased fiber intake, hydration, MiraLax daily. Follow-up after colonoscopy Orders: Orders CT abdomen pelvis w IV con 04/15/25 K59.00 - Constipation, unspecified, R10.30 - Lower abdominal pain, unspecified Referrals GI Procedure Notification R10.30 - Lower abdominal pain, unspecified Medications: New polyethylene glycol 3350 (Miralax) mix in 64 oz of gatorade for colonoscopy prep 238 grams PO ONCE 238 grams 0RF polyethylene glycol 3350 (Miralax) for constipation 17 grams PO DAILY 238 grams 0RF hyoscyamine sulfate 0.125 mg PO BID PRN 60 tabs 1RF abdominal discomfort psyllium husk (Metamucil) mix into at least 8 oz of water or juice before administering 1 tbsp PO DAILY 660 grams 0RF Coding Level of Care Code New Pt Level 4 (16542) Diagnoses Lower abdominal pain R10.30 Constipation K59.00 Family history of colon cancer Z80.0
[2025-04-15 11:49] VITALS: BP 126/62; PULSE 71; BMI 37.5
--- OUTSIDE RECORDS SUMMARY | 2025-04-15 16:10 | XMS_ITS | Encounter Summary ---
Author Organization [employer] Address [address] [facility] [address] [place] [address] Care Team Providers Care Sales Driver Name Role Phone Delmy Pastrana MD Primary Care Provider + Encounter Details Date Type Department Care Team (Late st Contact Info) Description 04/10/2025 Orders Only [facility] [address] [place], [place] [phone] Delmy Pastrana MD [address] [place], [place] [phone] Social History Tobacco Use Types Packs/Day Years [...] is your housing situation today? I have dorindameera gallagher 12/26/[address] [...] t he electric, gas, oil or water [employer] threatened to shut off services in your [...] as of this encounter Progress Notes * Delmy Pastrana MD - 04/10/2025 11:01 AM EDT Rx famotidine sent documented in this encounter Plan of Treatment Upcoming Encounters Date Type Department Care Team (Late st Contact Info) Description 05/16/2025 12:00 PM EDT Office Visit [facility] [address] [place] [address] Delmy Pastrana MD [address] [place] [address] documented as of this encounter Visit Diagnoses Not on filedocumented in this encounter Additional Health Concerns Assessment Noted Time PHQ-9 Depression Total Score: 20 025 8:44 AM EDT documented as of this encounter Care Teams Sales Driver Relationship Specialty Start Date End Date Delmy Pastrana MD [address] [place] [phone] PCP - General Internal Medicine 03/05/25 documented as of this encounter
--- OUTSIDE RECORDS SUMMARY | 2025-04-15 16:10 | XMS_ITS ---
Author Organization [employer] Address [address] [place] [address] [address] [place] [address] Care Team Providers Care Production Line Worker Name Role Phone Delmy Pastrana MD Primary Care Provider + CHW Complex Status:Enrolled (Active) Start date:11/27/2024 Enrollment date:12/26/2024 Enrollment reason:ADT Feed Overview ED- Pt went to [facility] ED on 11/26/24. Pt has no PCP. Please assist Case Team Name Relationship Phone Ada Blakely(Responsible Staff) [phone] Continued Care and Services Coordination
--- OUTSIDE RECORDS SUMMARY | 2025-04-15 16:11 | XMS_ITS | Clinical Summary ---
Author Organization [employer] Address [address] [facility] [address] [place] [address] Care Team Providers Care Permit Technician Name Role Phone Delmy Pastrana MD Primary Care Provider + Allergies No known active allergies Medications docusate sodium (Colace) 100 MG capsule Take 1 capsule by mouth if needed in the morning and at bedtime for constipation. 10/19/19 25 Active gabapentin (Neurontin) 800 MG tablet Take 800 mg by mouth in the morning and 800 mg at noon and 800 mg in the evening. 08/28/19 25 Active SUMAtriptan (Imitrex) 50 MG tablet Take 25 mg by mouth 1 (one) time if needed for migraine. 10/01/19 25 Active topiramate 50 MG tablet Take 50 mg by mouth Once per day. 10/11/19 25 Active traZODone (Desyrel) 100 MG tablet Take 100 mg by mouth at bedtime. 11/12/19 25 Active ziprasidone (Geodon) 20 MG capsule Take 20 mg by mouth with breakfast and with evening meal. 11/14/19 25 Active dicyclomine (Bentyl) 10 MG capsule Take 2 capsules (20 mg) by mouth 4 times daily. 120 capsule 1 11/21/19 25 2025 Active acetaminophen (Tylenol Extra Strength) 500 MG tabletIndication s:Lumbar radiculopathy Take 1 tablet (500 mg) by mouth every 8 (eight) hours if needed for mild pain. 30 tablet 2 03/21/20 25 2024 Active lidocaine (Lidoderm) 5 % patchIndications :Lumbar radiculopathy Apply 1 patch topically Once per day. Remove & discard patch within 12 hours or as directed by MD. 30 patch 2 03/21/20 25 Active meloxicam (Mobic) 15 MG tabletIndication s:Lumbar radiculopathy Take 1 tablet (15 mg) by mouth Once per day. 30 tablet 1 03/21/20 25 2025 Active famotidine (Pepcid) 20 MG tablet Take 1 tablet (20 mg) by mouth Once per day. 90 tablet 3 04/10/20 25 Active busPIRone (Buspar) 5 MG tablet Take 5 mg by mouth 2 times daily. 04/05/20 25 Active Diclofenac Sodium 1 % gel APPLY TO THE AFFECTED AREA(S) FOUR TIMES DAILY DIRECTED 08/14/19 25 Active DULoxetine (Cymbalta) [address] capsule TAKE 1 CAPSULE BY MOUTH TWICE DAILY MAXIMUM TOTAL DAILY DOSE 2 CAPSULES 11/11/19 25 Active ferrous sulfate 325 (65 Fe) MG EC tablet TAKE 1 TABLET BY MOUTH EVERY OTHER DAY. TAKE WITH vitamin c TO HELP WITH absorption 07/03/20 24 Active OneTouch Ultra Test test strip 10/20/19 25 Active Lancets (OneTouch Delica Plus [id number]) misc 10/20/19 25 Active zolpidem (Ambien) 10 MG tablet Take 1 tablet by mouth at bedtime 04/05/20 25 Active DULoxetine (Cymbalta) [address] capsule Take 30 mg by mouth Once per day. 10/27/19 25 2024 Discontinued(M ed list cleanup (will not trigger notification to Pharmacy)) famotidine (Pepcid) 20 MG tablet Take 1 tablet by mouth Once per day. 10/26/19 25 2024 Discontinued(R eorder (will not trigger notification to Pharmacy)) zolpidem (Ambien) 5 MG tablet Take 5 mg by mouth if needed at bedtime for sleep. 10/27/19 25 2024 Discontinued(M ed list cleanup (will not trigger notification to Pharmacy)) ferrous gluconate (Fergon) 324 (38 Fe) MG tablet Take 324 mg by mouth with breakfast. 2024 Discontinued(M ed list cleanup (will not trigger notification to Pharmacy)) predniSONE (Deltasone) 20 MG tabletIndication s:Lumbar radiculopathy 2 tabs po daily for 5 days 10 tablet 03/21/20 25 2024 Discontinued(M ed list cleanup (will not trigger notification to Pharmacy)) Active Problems Problem Noted Date Diagnosed Date Lumbar radiculopathy 03/21/2025 Assessment & Plan (03/21/2025 11:20 PM EDT): -Lumbar MRI 09/2023 degenrative changes of the lumbar spine with central canal and foraminal narrowing , no focal nerve root impingement ,noted slight desiccation of the L5-S1 disc with a posterior annular tear . The conus is normal L3-L4 mild broad posterior disc bulgue and ligamentum flavum infolding , L4-l5 degenerative anterolisthesis ,mild central canal narrowing , L5-S1 mild broad based posterior disc bulge and facet arthrosis, minimal central canal narrowing -03/2025 Chem,CBC wnl -warm compressed advises -continue PT -pt to call her PM today to schedule f up apt as will benefit from inj -tylenol prn,lidoderm patch -meloxicam for moderate to intense pain but explained to not take w ibuprofen as in same family and to hold until completes PO steroids -given severe pain pxed Prednisone 40 mg x 5 days -denies to me hx of GI bleed -alarm signs symoptoms discussed w pt -has apt w PCP 05/16/2025 already scheduled Bilateral leg edema 03/21/2025 Assessment & Plan (03/21/2025 11:18 PM EDT): -LE edema seems chronic ,possible venous insuff ? -will do today doppler US to r/o clots but seems unlikely from exam and bilateral findings. -raise legs -Continue w PCP Carpal tunnel syndrome of right wrist 03/05/2025 Overview (03/05/2025): Sp CTS release surgery on 2022 at [facility] Assessment & Plan (03/05/2025 10:34 AM EDT): Status post carpal tunnel release 2 years ago, has residual weakness. Obtain report of most recent NCS and follow-up with me Encounter for screening colonoscopy 03/05/2025 IFG (impaired fasting glucose) 03/05/2025 Overview (03/05/2025): Seen at [facility] endocr[facility]ology clinic (Dr Lock) due to episode of hypoglycemia on 2019 Assessment & Plan (03/05/2025 10:29 AM EDT): We discussed about decreased calorie intake, weight reduction and moderate exercise as tolerated Order labs She is followed by [facility] endocrinology clinic, will obtain records and see if she needs a additional follow-up. Melena 03/05/2025 Assessment & Plan (03/05/2025 10:30 AM EDT): History of black stools, unclear if he was GI bleeding. She claims no ever having a colonoscopy, will refer to GI for colorectal cancer screening Order labs Plantar fasciitis, bilateral 03/05/2025 Assessment & Plan (03/05/2025 10:32 AM EDT): I gave her information about the stretching exercises, will refer to PT Discussed about soaking her feet on warm water with Epsom salt prior to exercises Advised to wear shoes with enough plantar support Need for assistance with personal care Assessment & Plan (03/05/2025 10:35 AM EDT): Has limitation for ADLs, especially weakness of both hands and chronic pain + depression Her son is her CREMATORY ATTENDANT and I discussed with her the importance of having her CREMATORY ATTENDANT been on top of her medical appointments and that she picks up medications at the pharmacy. Patient will be referred for med boxes to improve compliance Degeneration of intervertebr al disc of lumbar region with discogenic back pain 03/05/2025 Breast mass seen on mammogram 03/05/2025 Overview (03/05/2025): Mammogram on 02/28/25 showed bl Encounter to establish care 11/20/2024 Assessment & Plan (11/20/2024 6:00 PM EDT): Last pcp visit 3 months ago at [facility] Pmhx: fibromylgia, migraine, depression, sciatic back pain Pshx:- All: - Meds: Intractable chronic migraine with aura and without status migrainosus 05/23/2024 Fibromyalgia 05/23/2024 Assessment & Plan (03/05/2025 10:33 AM EDT): Continue duloxetine, Tylenol and gabapentin We discussed about the importance of treatment of depression and moderate physical activity. She was given information about acupuncture clinic and we discussed about our in-house chronic pain management program, she declines referral to that at this time. Will follow-up next month with labs, we discussed about physical therapy and? Muscle relaxers Depression 05/23/2024 Overview (03/05/2025): Seen by Dr Chavez and Bull Myers is the therapist Assessment & Plan (03/05/2025 10:31 AM EDT): Followed by Bull Myers and Dr. Chavez at [facility], we discussed importance of close follow-up, compliance with medications. She was recently transition from venlafaxine to duloxetine, advised to follow-up closely with above prescribers Patient feels safe at home and is able to reach out for safety We discussed about referral to in-house chronic pain clinic to work on mechanisms to cope with chronic pain, she declined at this time Migraine with aura and witho ut status migrainosus, not intractable 05/23/2024 Insomnia 05/23/2024 Encounters Date Type Department Care Team Description 04/10/2025 Orders Only [facility] [address] [place] [phone] Delmy Pastrana MD 04/08/2025 Patient Outreach [facility] [place] [address] Delmy Pastrana MD Care Coordination ([facility]/Narendra Mendoza f/u, program graduation) 04/08/2025 Patient Outreach [facility] [address] [facility] [place] [address] Delmy Pastrana MD Care Management ([facility] graduation) 04/05/2025 Travel 03/22/2025 Results [address]-Up [address] [facility] [address] Janice Randolph MD [facility] US Lower Extremity Venous Duplex Bilateral 03/22/2025 Orders Only [address] [address] Janice Randolph MD 03/21/2025 1:00 PM EDT Office Visit [address] [address] Janice Randolph MD Lumbar radiculopathy (Primary Dx); Leg swelling; Bilateral leg edema 03/21/2025 Results Follow-Up [address] [address] Janice Randolph MD XR Lumbar Spine 2-3 Views 03/21/2025 Travel 03/20/[address] [address] Delmy Pastrana MD chartprep 03/20/[address] [address] Delmy Pastrana MD Nurse Triage 03/20/2025 Patient Outreach [address] [address] Delmy Pastrana MD Care Management ([facility] follow up call) 03/20/2025 Patient Outreach [address] [address] Delmy Pastrana MD Care Coordination ([facility]/W Bernardino Mcbridemn f/u call) 03/06/2025 Patient Outreach [address] [address] Delmy Pastrana MD Care Management ([facility] TC #3-lvm) 03/05/2025 9:15 AM EDT Office Visit [address] [address] Delmy Pastrana MD Depression, unspecified depression type (Primary Dx); Fibromyalgia; Carpal tunnel syndrome of right wrist; Plantar fasciitis, bilateral; IFG (impaired fasting glucose); Need for assistance with personal care; Melena; Encounter for screening colonoscopy; Degeneration of intervertebral disc of lumbar region with discogenic back pain; Breast mass seen on mammogram 03/05/2025 Travel 02/26/2025 Patient Outreach [address] [address] Delmy Pastrana MD Pre-visit Planning (SDOH screening completed on 12/26/2024) 02/19/2025 Patient Outreach [facility] [address] [place] [address] Hazel Shanks RN Care Coordination ([facility] f/u call- LVM) 02/19/2025 Patient Outreach [address] [address] Hazel Shanks RN Care Coordination ([facility]/TI [place], TC #2 SDOH f/u call_lvm) 02/08/2025 Patient Outreach [address] [address] Hazel Shanks RN Care Coordination (C3[facility]/TI [place], Sdoh f/u_lvm ) 02/08/2025 Patient Outreach [facility] [address] [place] [phone] Hazel Shanks RN Care Coordination (C3[facility] f/u call- LVM) 01/24/2025 Patient Outreach [address] [address] Hazel Shanks RN Care Coordination (C3[facility]/TI [place], Sdoh f/u call) 01/24/2025 Patient Outreach [facility] [address] Hazel Shanks RN from Last 3 Months Immunizations Immunization Administration Dates Next Due Influenza, IIV3, injectable 06/27/2017, 6 Influenza, seasonal, injectable, preservative fr ee 07/11/2019 Pneumococcal Conjugate PCV 20 04/12/2025 Tdap 04/12/2025,12/06/2013 Social History Tobacco Use Types Packs/Day Years Used Date Smoking Tobacco: Never Passive Smoke Exposure: Never Smokeless Tobacco: Never Tobacco Cessation:Counseling Given: Not Answered Alcohol Use Standard Drinks/Week Comments Never 0 [...] Sign Reading Time Taken Comments Blood Pressure 118/88 03/21/2025 1:13 PM EDT Pulse 80 03/21/2025 1:13 PM EDT Temperature 36.2 C (97.1 F) 03/21/2025 1:13 PM EDT Respiratory Rate 20 03/21/2025 1:13 PM EDT Oxygen Saturation 98% 03/21/2025 1:13 PM EDT Inhaled Oxygen Concentration - - Weight 93.4 kg (206 lb) 03/21/2025 1:13 PM EDT Height 167.6 cm (5' 6 ) 03/21/2025 1:13 PM EDT Body Mass Index 33.25 03/21/2025 1:13 PM EDT Plan of Treatment Upcoming Encounters Date Type Department Care Team (Late st Contact Info) Description 05/16/2025 12:00 PM EDT Office Visit [facility] [address] [place] [address] Delmy Pastrana MD [address] [place], [place] [phone] Health Maintenance Due Date Last Done Comments CT Colonography 1970 Colonoscopy 1970 Colorectal Cancer Screening 1970 FIT DNA/Cologuard 1970 FIT 1970 FOBT 1970 Sigmoidoscopy 1970 Hepatitis A Vaccines (1 of 2 - Risk 2-dose series) 1989 Hepatitis B Vaccines (1 of 3 - 19+ 3-dose series) 1989 Pap Smear 1991 Cervical Cancer Screening 2000 HPV/Cotest 2000 Mammogram 2010 Zoster Vaccines (1 of 2) 2020 COVID-19 Vaccine (3 - 2024-2 6 season) 2025 06/22/2021, 12/02/2020 Influenza Vaccine (#1) 2025 9, 06/27/2017, 08/12/2015 Depression Monitoring 09/06/2025 03/06/2025 , 03/06/2025 Alcohol/Substance Use Screening 12/26/2025 12/26/2024 SDOH Screening 12/26/2025 12/26/2024 Disability Screening 03/06/2026 03/06/2025 Tobacco Screening 03/21/2026 03/21/2025 DTaP/Tdap/Td Vaccines (3 - T d or Tdap) 04/12/2035 04/12/2025, 12/06/2013 RSV Patients and Patients Aged 60 years or older (1 - 1-dose 75+ series) 2045 HIV Screening Completed 03/12/2025 Hepatitis C Screening Completed 03/12/2025 Pneumococcal Vaccine: 50+ Years Completed 04/12/2025 HIB Vaccines Aged Out No longer eligi ble based on patient's age to complete this topic HPV Vaccines Aged Out No longer eligi ble based on patient's age to complete this topic IPV Vaccines Aged Out No longer eligi ble based on patient's age to complete this topic Meningococcal B Vaccine Aged Out No l onger eligible based on patient's age to complete [...] Procedure Name Priority Date/Time Associated Diagnosis Comments VASC US LOWER EXTREMITY VENOUS DUPLEX BILATERAL Routine 03/22/2025 1:08 PM EDT XR LUMBAR SPINE 2-3 VIEWS Routine 03/21/2025 1:27 PM EDT Lumbar radiculopathy URIC ACID Routine 03/12/2025 1:53 PM EDT Carpal tunnel syndrome of right wrist RHEUMATOID FACTOR Routine 03/12/2025 1:5 3 PM EDT Carpal tunnel syndrome of right wrist VITAMIN D,25-OH,TOTAL,IA Routine 03/12/2025 1:53 PM EDT Depression, unspecified depression type TSH W/REFLEX TO FT4 Routine 03/12/2025 1 :53 PM EDT Depression, unspecified depression type HEPATITIS PANEL, GENERAL Routine 03/12/2025 1:53 PM EDT Depression, unspecified depression type HIV 1/2 ANTIGEN/ANTIBODY, FOURTH GENERATION W/RFL Routine 03/12/2025 1:53 PM EDT Depression, unspecified depression type LIPID PANEL WITH REFLEX TO DIRECT LDL Routine 03/12/2025 1:53 PM EDT IFG (impaired fasting glucose) CBC WITH AUTO DIFFERENTIAL Routine 03/12/2025 1:53 PM EDT Melena COMPREHENSIVE METABOLIC PANEL Routine 03/12/2025 1:53 PM EDT Depression, unspecified depression type IFG (impaired fasting glucose) from Last 3 Months Results * [facility] US Lower Extremity Venous Duplex Bilateral (03/22/2025 1:08 PM EDT) 03/22/2025 1:08 PM EDT Narrative [facility] - 03/22/2025 1:48 PM EDT [address] [address] Ultrasound Report Signed Patient: Pratibha Martínez MR#: [id number] : 1970 Acct:[id number] Age/Sex: 55 / F ADM Date: 03/22/25 Loc: HO.US Attending Dr: Janice Schmidt MD Ordering Physician: Janice Randolph MD Date of Service: 03/22/25 Procedure(s): US venous duplex LE BI Accession Number(s): [id number] cc: Janice Randolph MD EXAMINATION: US TRIPLEX LOWER EXTREMITY, BILATERAL CLINICAL INFORMATION: Bilateral lower extremity edema and pain. COMPARISON: None available. TECHNIQUE: Color-flow triplex imaging with spectral analysis and compression Doppler were performed on the bilateral lower extremities. FINDINGS: Respiratory variation, normal compression and augmented flow are noted throughout the bilateral lower extremities. The visualized common femoral vein, superficial femoral vein, profunda femoral vein, popliteal vein and midcalf peroneal and posterior tibial venous segments show no evidence of deep venous thrombosis bilaterally. There is no Gordon's cyst. US/US venous duplex LE BI IMPRESSION: No evidence of deep venous thrombosis involving the bilateral lower extremities.i Electronically signed by: Eleazar Aquino MD 03/22/2025 01:45 PM EDT Dictated By: Eleazar Aquino MD Signed By: <Electronically signed by Eleazar Aquino MD in OV> 03/22/25 1345 DD/ 1308 TD/TT: 03/22/25 1322 Cardiothoracic Surgeon: Procedure Note Donotuseinterpreter, Image - 03/22/[address] [address] Ultrasound Report Signed Patient: Pratibha MartínezMR#: [id number] : 1970Acct:[id number] Age/Sex: 55 / FADM Date: 03/22/25 Loc: HO.US Attending Dr: Janice Schmidt MD Ordering Physician: Janice Randolph MD Date of Service: 03/22/25 Procedure(s): US venous duplex LE BI Accession Number(s): [id number] cc: Janice Randolph MD EXAMINATION: US TRIPLEX LOWER EXTREMITY, BILATERAL CLINICAL INFORMATION: Bilateral lower extremity edema and pain. COMPARISON: None available. TECHNIQUE: Color-flow triplex imaging with spectral analysis and compression Doppler were performed on the bilateral lower extremities. FINDINGS: Respiratory variation, normal compression and augmented flow are noted throughout the bilateral lower extremities. The visualized common femoral vein, superficial femoral vein, profunda femoral vein, popliteal vein and midcalf peroneal and posterior tibial venous segments show no evidence of deep venous thrombosis bilaterally. There is no Gordon's cyst. US/US venous duplex LE BI IMPRESSION: No evidence of deep venous thrombosis involving the bilateral lower extremities.i Electronically signed by: Eleazar Aquino MD 03/22/2025 01:45 PM EDT Dictated By: Eleazar Aquino MD Signed By: <Electronically signed by Eleazar Aquino MD in OV> 03/22/25 1345 DD/ 1308 TD/TT: 03/22/25 1322 Cardiothoracic Surgeon: us Janice Schmidt MD CV VASCULAR PROCE WENDI Final Result [facility] [address] [place] [phone] * XR Lumbar Spine 2-3 Views (03/21/2025 1:27 PM EDT) Anatomical Region Laterality Modality Spine, L-spine Radiographic Claudia ging 03/21/2025 1:27 PM EDT Narrative 03/21/2025 2:22 PM EDT [address] [address] XRay Report Signed Patient: Pratibha Martínez MR#: [id number] : 1970 Acct:[id number] Age/Sex: 55 / F ADM Date: 03/21/25 Loc: HO.HHCX Attending Dr: Janice Schmidt MD Ordering Physician: Janice Randolph MD Date of Service: 03/21/25 Procedure(s): XR lumbar spine 2-3V Accession Number(s): [id number] cc: Delmy Pastrana MD; Janice Randolph MD EXAMINATION: XR LUMBOSACRAL SPINE CLINICAL INFORMATION: lwoer back pain acute on chronic COMPARISON: April 10, 2020 TECHNIQUE: Three views of the lumbosacral spine. FINDINGS: There are vestigial ribs at T12. There are 5 nonrib-bearing lumbar segments. There is stable mild grade 1 anterolisthesis at L4-5. There is facet sclerosis at L3-4, L4-5 and L5-S1. XR/XR lumbar spine 2-3V IMPRESSION: Facet osteoarthritis is present at L3-4, L4-5, and L5-S1. There is stable mild grade 1 anterolisthesis at L4-5. Electronically signed by: Jack German MD 03/21/2025 02:20 PM EDT Dictated By: Jack German MD Signed By: <Electronically signed by Jack German MD in OV> 03/21/25 1420 DD/ 1327 TD/TT: 03/21/25 1415 Cardiothoracic Surgeon: Procedure Note Donotuseinterpreter, Image - 03/21/[address] [address] XRay Report Signed Patient: Pratibha MartínezMR#: [id number] : 1970Acct:[id number] Age/Sex: 55 / FADM Date: 03/21/25 Loc: HO.HHCX Attending Dr: Janice Schmidt MD Ordering Physician: Janice Randolph MD Date of Service: 03/21/25 Procedure(s): XR lumbar spine 2-3V Accession Number(s): [id number] cc: Delmy Pastrana MD; Janice Randolph MD EXAMINATION: XR LUMBOSACRAL SPINE CLINICAL INFORMATION: lwoer back pain acute on chronic COMPARISON: April 10, 2020 TECHNIQUE: Three views of the lumbosacral spine. FINDINGS: There are vestigial ribs at T12. There are 5 nonrib-bearing lumbar segments. There is stable mild grade 1 anterolisthesis at L4-5. There is facet sclerosis at L3-4, L4-5 and L5-S1. XR/XR lumbar spine 2-3V IMPRESSION: Facet osteoarthritis is present at L3-4, L4-5, and L5-S1. There is stable mild grade 1 anterolisthesis at L4-5. Electronically signed by: Jack German MD 03/21/2025 02:20 PM EDT RP Dictated By: Jack German MD Signed By: <Electronically signed by Jack German MD in OV> 03/21/25 1420 DD/ 1327 TD/TT: 03/21/25 1415 Cardiothoracic Surgeon: us Janice Schmidt MD IMG XR PROCEDURES Final Result * Vitamin D, 25-Hydroxy, Total, Immunoassay (03/12/2025 1:53 PM EDT) Vitamin D 25-OH Total 40.6 >30 ng/mL [facility] Comment: Health Based Reference Values*< 20 ng/mL Sacyykoid27-58 ng/mL Insufficient> 30 ng/mL Sufficient*Marta CAREY. N Engl J Med. 2007;357:266-280There is no well-established upper level of normal vitamin Dlevels. Some laboratories use 50 ng/mL as an upper limit ofnormal. However, toxicity is patient-dependent and may occurat any level. Careful correlation with the patient'spresentation is necessary and, if there is concern forvitamin D toxicity, treatment should be consideredirrespective of the serum level.Care must be taken in interpreting Vitamin D results fromdifferent laboratories and methodologies. Published datademonstrated that results from patients undergoinghemodialysis may show a negative bias when tested withvarious automated 25-OH vitamin D assays when compared toLC-MS/MS.When testing samples from patients whose predominant form ofVitamin D is Vitamin D2, such as patients receiving VitaminD2 supplementation, results that are subtherapeutic shouldbe confirmed with another method such as LC-MS/MS. Blood 03/12/2025 1:53 PM EDT 03/12/2025 5:45 PM EDT Delmy Pastrana MD LAB BLOOD ORDERABLES Fin al Result Performing Organization Address [facility]/ZIP Co de Phone Number [facility] [address] [place] [address] [phone] * TSH with Reflex to Free T4 (03/12/2025 1:53 PM EDT) TSH reflex Free T4 2.11 0.32 - 4.0 uIU/mL [facility] Blood 03/12/2025 1:53 PM EDT 03/12/2025 5:45 PM EDT Delmy Pastrana MD LAB BLOOD ORDERABLES Fin al Result Performing Organization Address City/[facility]/ZIP Co de Phone Number [facility] [address] [place] [address] [phone] Lipid Panel with Reflex to Direct LDL (03/12/2025 1:53 PM EDT) Triglycerides 75 <150 mg/dL [facility] Comment:Desirable Triglyceri de: less than 150 mg/dLBorderline High Triglyceride 150-199 mg/dLHigh Triglyceride: 200-499 mg/dLVery High Triglyceride: greater than or equal to 5OO mg/dL Cholesterol 138 <200 mg/dL [facility] Comment:Desirable Cholestero l: less than 200 mg/dLBorderline High Cholesterol: 200-239 mg/dLHigh Cholesterol: greater than 239 mg/dL LDL Cholesterol Calculated 73 <100 mg/dL [facility] Comment:Desirable LDL: less than 100 mg/dLNear Optimal/Above Optimal LDL: 110- 129 mg/dLBorderline High LDL: 130-159 mg/dLHigh LDL: 160-189 mg/dLVery High LDL: greater than or equal to 190 mg/dL HDL Cholesterol 50 >40 mg/dL [facility] Comment:Desirable HDL: great er than 40 mg/dL Note: This HDL assay may give artificially low results in patients with liver disease. Blood 03/12/2025 1:53 PM EDT 03/12/2025 5:45 PM EDT us Delmy Pastrana MD LAB BLOOD ORDERABLES Fin al Result Performing Organization Address [facility] de Phone Number [facility] [address] [place] [phone] * Hepatitis Panel, General (03/12/2025 1:53 PM EDT) Hepatitis A IgM Nonreactive Nonreactive [facility] Comment:IgM antibodies to BAE V not detected; does not exclude earlyacute or recovered HAV infection. ~Hepatitis B Surface Antibody NONREACTIVE Nonreactive [facility] Comment:Nonreactive: < 8.00 mIU/mL Hepatitis B Core Antibody Nonreactive Nonreactive [facility] Hepatitis C Antibody Nonreactive Nonreactive [facility] Comment:Antibodies to HCV no t detected; does not exclude early acuteHCV infection. Hepatitis B Surface Ag Negative Negative [facility] Blood 03/12/2025 1:53 PM EDT 03/12/2025 5:45 PM EDT Delmy Pastrana MD LAB BLOOD ORDERABLES Fin al Result Performing Organization Address [facility] Co de Phone Number [facility] [address] [place] [phone] [phone] * CBC auto differential (03/12/2025 1:53 PM EDT) White Blood Count 5.8 4.8 - 10.8 X10*3/uL [facility] Red Blood Count 4.28 4.20 - 5.50 X10*6/uL [facility] Hemoglobin 12.7 12.0 - 16.0 g/dl [facility] Hematocrit 37.8 37.0 - 47.0 % [facility] Mean Corpuscular Volume 88.3 80.0 - 98.0 fL [facility] Mean Corpuscular Hemoglobin 29.7 27.0 - 33.0 pg [facility] Mean Corpuscular HGB Conc 33.6 31.0 - 35.0 g/dl [facility] Red Cell Distribution Width 12.6 11.0 - 16.0 % [facility] Platelet Count 257 160 - 400 X10*3/uL [facility] Mean Platelet Volume 10.2 9.4 - 12.3 fL [facility] Neutrophils Percent Auto 60.3 45 - 73 % [facility] Imm Gran Pct Auto 0.3 0.0 - 0.4 % [facility] Lymphocytes Percent Auto 31.1 20 - 40 % [facility] Monocytes Percent Auto 4.7 2 - 11 % [facility] Eosinophils Percent Auto 2.6 0 - 4 % [facility] Basophils Percent Auto 1.0 0 - 2 % [facility] NRBC Pct Auto 0.0 0.0 - 0.2 /100WBC [facility] Neutrophils Absolute Auto 3.5 2.0 - 8.3 x10*3/uL [facility] Imm Gran Abs Auto 0.02 0.00 - 0.03 X10*3/uL [facility] Lymphocytes Absolute Auto 1.8 1.2 - 4.9 X10*3/uL [facility] Monocytes Absolute Auto 0.3 0.1 - 1.2 X10*3/uL [facility] Eosinophils Absolute Auto 0.2 0.0 - 0.4 X10*3/uL [facility] Basophils Absolute Auto 0.1 0.0 - 0.2 X10*3/uL [facility] NRBC Abs Auto 0.000 0.0 - 0.012 X10*3/uL [facility] Blood Venous blood specimen / Unknown 03/12/2025 1:53 PM EDT 03/12/2025 5:40 PM EDT us Delmy Pastrana MD LAB BLOOD ORDERABLES Fin al Result Performing Organization Address [facility] Co de Phone Number [facility] [address] [place] [phone] * HIV-1/2 Antigen and Antibodies, Fourth Generation, with Reflexes (03/12/2025 1:53 PM EDT) HIV AB/AG Nonreactive Nonreactive [facility] Comment:HIV-1 p24 Ag and/or HIV-1/HIV-2 Ab not detected.A test result that is nonreactive does not exclude thepossibility of exposure to or infection with HIV-1 and/orHIV-2. Nonreactive results in this assay for individualswith prior exposure to HIV-1 and/or HIV-2 may be due toantigen and antibody levels that are below the limit ofdetection of this assay.The [employer] HIV Ag/Ab Combo assay result andsupplemental assay results should be interpreted inconjunction with the patient's clinical presentation,history and other laboratory results. If the results areinconsistent with clinical evidence, additional testing issuggested to confirm the result. Blood Venous blood specimen / Unknown 03/12/2025 1:53 PM EDT 03/12/2025 5:45 PM EDT us Delmy Pastrana MD LAB BLOOD ORDERABLES Fin al Result Performing Organization Address [facility]/ZIP Co de Phone Number [facility] [address] [place] [phone] * Rheumatoid Factor (03/12/2025 1:53 PM EDT) [facility] Rheumatoid Factor <13.0 <15.0 IU/mL [facility] Blood Venous blood specimen / Unknown 03/12/2025 1:53 PM EDT 03/12/2025 5:40 PM EDT us Delmy Pastrana MD LAB BLOOD ORDERABLES Fin al Result Performing Organization Address [facility]/ZIP Co de Phone Number [facility] [address] [place] [phone] * Uric acid (03/12/2025 1:53 PM EDT) [facility] Uric Acid 4.4 2.4 - 5.7 mg/dL [facility] Blood Venous blood specimen / Unknown 03/12/2025 1:53 PM EDT 03/12/2025 5:45 PM EDT Delmy Pastrana MD LAB BLOOD ORDERABLES Fin al Result Performing Organization Address [facility] Co de Phone Number [facility] [address] [place] [phone] * (ABNORMAL) Comprehensive Metabolic Panel (03/12/2025 1:53 PM EDT) [facility] Sodium 143 135 - 145 mmol/L [facility] Potassium 3.9 3.3 - 5.1 mmol/L [facility] Chloride 112(H) 96 - 108 mmol/L [facility] Carbon Dioxide 23 22 - 29 mmol/L [facility] Anion Gap 12 12 - 20 [facility] Urea Nitrogen (BUN) 12 9 - 16 mg/dL [facility] Creatinine, Serum 0.93 0.5 - 1.4 mg/dL [facility] Estimated Glomerular Filt Rate >60 [facility] Comment:Chronic Kidney Disea se: Estimated GFR < 60 mL/min/1.78a5Shylff Kidney Disease: Estimated GFR < 15 mL/min/1.73m2 Glucose 95 60 - 115 mg/dL [facility] Calcium 9.3 8.4 - 10.2 mg/dL [facility] Bilirubin, Total 0.5 0.0 - 1.0 mg/dL [facility] Aspartate Amino Transferase 31 5 - 31 U/L [facility] Alanine Aminotransferase 16 0 - 31 U/L [facility] Total Protein 7.1 6.5 - 8.0 g/dL [facility] Albumin Level 4.1 3.5 - 5.0 g/dL [facility] Alkaline Phosphatase 66 39 - 117 U/L [facility] Blood Venous blood specimen / Unknown 03/12/2025 1:53 PM EDT 03/12/2025 5:45 PM EDT Delmy Pastrana MD LAB BLOOD ORDERABLES Fin al Result Performing Organization Address City/State/[facility] Co de Phone Number [facility] [address] [place] [phone] from Last 3 Months Insurance [facility] C3 Care Teams Permit Technician Relationship Specialty Start Date End Date Delmy Pastrana MD [address] [place] [phone] PCP - General Internal Medicine 03/05/25
== END 2025-04-15 12:49 | disposition home or self-care (01) ==
LOC: HO.HGI 11:40
PROVIDERS: PCP Internal Medicine; Visit Provider Internal Medicine
DX: R10.30 Lower abdominal pain, unspecified (principal); K59.00 Constipation, unspecified; Z80.0 Family history of malignant neoplasm of digestive organs
CPT/HCPCS: 99204

== ENCOUNTER 2025-05-10 12:07 | Outpatient (REF) | payer OTHER, MEDICAID, SELFPAY ==
--- NOTE | ~2025-05-10 | XR_ITS ---
EXAMINATION: XR CHEST 2 VIEWS HISTORY: One month of non productive cough following a viral URI COMPARISON: Comparison is made with the prior examination dated 11/26/2024. FINDINGS: PA and lateral views of the chest are submitted. The lungs are expanded and clear. There is minimal blunting of the right posterior costophrenic angle which may represent pleural thickening or a tiny pleural effusion. There is no pneumothorax or pulmonary vascular congestion. The heart is normal in size. The bones are intact. XR/XR chest 2V IMPRESSION: Possible trace right pleural effusion versus pleural thickening. The lungs are clear. Electronically signed by: Luis Garrison MD 05/10/2025 12:47 PM EDT
== END 2025-05-10 12:08 | disposition home or self-care (01) ==
LOC: HO.HHCX 12:07
PROVIDERS: Visit Provider Internal Medicine Geriatric Medicine
DX: R05.2 Subacute cough (principal)
CPT/HCPCS: 71046

== ENCOUNTER → 2025-05-10 12:07 | Outpatient (BNV) | payer OTHER, MEDICAID, SELFPAY | PROVIDERS: Visit Provider Radiology Diagnostic Radiology | DX: J06.9 Acute upper respiratory infection, unspecified (principal) | CPT/HCPCS: 71046 ==

== ENCOUNTER 2025-05-23 14:04 | Outpatient (RCR) | payer OTHER, MEDICAID, SELFPAY | END 2025-06-05 08:11 | disposition home or self-care (01) | LOC: HO.PT 14:04 | PROVIDERS: PCP Internal Medicine; Visit Provider Internal Medicine | DX: M72.2 Plantar fascial fibromatosis (principal); M79.7 Fibromyalgia | CPT/HCPCS: 97110; 97161 ==

== ENCOUNTER 2025-06-18 12:40 | Outpatient (REF) | payer OTHER, MEDICAID, SELFPAY ==
--- NOTE | ~2025-06-18 | CT_ITS ---
EXAMINATION: CT ABDOMEN PELVIS WITH IV CONTRAST HISTORY: R10.30 - Lower abdominal pain, unspecified COMPARISON: Previous CT of the abdomen and pelvis May 2024 TECHNIQUE: CT scan of the abdomen and pelvis was performed following administration of 85 mL Omnipaque 350 using standard departmental protocol. Coronal and sagittal reformatted images were generated and reviewed. This CT exam was performed with one or more of the following dose reduction techniques: automated exposure control, adjustment of the mA and/or kV according to patient size, use of iterative reconstruction technique. DLP: 596 mGy-cm FINDINGS: LOWER CHEST: The visualized lung bases are clear. There is no pleural effusion. CARDIOVASCULATURE: The heart is normal in size. There is no pericardial effusion. LIVER: Low-attenuation liver suggestive of mild fatty infiltration. Liver normal in size and contour. No liver mass is identified. The hepatic and portal veins are patent. GALLBLADDER / BILE DUCTS: The gallbladder is unremarkable. There is no intra or extrahepatic biliary ductal dilatation. SPLEEN: The spleen is normal in size. No focal splenic lesion is identified. PANCREAS: The pancreas is unremarkable in appearance. ADRENAL GLANDS: Within normal limits. KIDNEYS/RETROPERITONEUM: No renal calculi are identified. There is no hydronephrosis. No renal masses are identified. LYMPH NODES: No abdominal or pelvic lymphadenopathy. VASCULATURE: The abdominal aorta is normal in caliber. MESENTERY/PERITONEUM: No free fluid. No masses. There is no free intraperitoneal gas. STOMACH: Normal SMALL BOWEL: The small bowel is normal in caliber. COLON: The colon is unremarkable. APPENDIX: Normal. URINARY BLADDER/PELVIC ORGANS: The urinary bladder is unremarkable. Multiple uterine lesions suggestive of fibroids during up to 2.5 cm. Adnexa appear unremarkable. BONES / SOFT TISSUES: Degenerative changes of the lower lumbar spine. Mild anterior subluxation of L4 with respect to L5 probably secondary to facet arthritis. Surgical changes to the low anterior abdominal wall. No hernia or fluid collection. CT/CT abdomen pelvis w IV con IMPRESSION: No acute findings. Fatty liver. Uterine fibroids. Electronically signed by: Marci Nino MD 06/18/2025 03:46 PM [facility]
[2025-06-18] MEDS: iohexoL 350 MG/ML 100 ML INFUS..BTL IV (15:29)
[2025-06-18 17:33] LABS: Creatinine POC 0.8 mg/dL (0.5-1.4); GFR POC > 60
== END 2025-06-18 12:41 | disposition home or self-care (01) ==
LOC: HO.CT 12:40
PROVIDERS: PCP Internal Medicine; Visit Provider Internal Medicine
DX: R10.30 Lower abdominal pain, unspecified (principal); K59.00 Constipation, unspecified
CPT/HCPCS: 74177; 82565; Q9967

== ENCOUNTER → 2025-06-18 12:42 | Outpatient (BNV) | payer OTHER, MEDICAID, SELFPAY | PROVIDERS: PCP Internal Medicine; Visit Provider Radiology Diagnostic Radiology | DX: K76.0 Fatty (change of) liver, not elsewhere classified (principal); D25.9 Leiomyoma of uterus, unspecified | CPT/HCPCS: 74177 ==

== ENCOUNTER 2025-07-01 14:02 | Outpatient (AMB) | payer OTHER, MEDICAID, SELFPAY ==
--- NOTE | 2025-07-01 14:10 | A.OFFVIS_ITS ---
Vital Signs 07/01/25 14:14 Height 5 ft 3 in Weight 211 lb 10.3 oz BMI 37.5 BP 117/59 L Blood Pressure Location Lt brachial Position Sitting Pulse 73 Intake Visit Reasons: CT scan results Intake Note: Pratibha presents in the office as a follow up for her CT scan results. CC: She states that she is not having concerns today. Education Department Registrar Required: Yes Education Department Registrar Name: Cesar Allergies No Known Allergies (No Known Allergies*) Allergy (Verified 07/01/25 14:16) HPI Comments Details: 55 y.o F with PMH of fibromyalgia, GERD, migraines who is here for abd pain. Reports lower abd pain uriel on R side ongoing x year assoc with nausea and loss of appetite. Also has constipation assoc with straining. Passes a hard BM 3 times a week. No blood in stool. Path aunt: colon cancer in her 40s. Has never had a colonoscopy. Labs reviewed, no anemia. 07/01/25: The patient is presenting for a follow-up visit for constipation. Seen with Tiara ROSENBAUM for French interpretation. At the last visit she was started on fiber and MiraLAX. The patient reports experiencing hard bowel movements, fecal incontinence, urinary incontinence, and malodorous flatus. The patient notes the fecal incontinence occurs at night, without awareness, and the flatus is embarrassing. The patient also endorses abdominal pain. CT scan 06/18 STOMACH: Normal SMALL BOWEL: The small bowel is normal in caliber. COLON: The colon is unremarkable. APPENDIX: Normal. --- Pt was informed and consented to the use of ambient scribe for this encounter. --- [facility] Medical History Depression Migraines Fibromyalgia No significant medical problems Social History Alcohol intake: never Patient Tobacco Use Status: Never used Tobacco service: No Current occupational status: unemployed Review of Systems Const All systems reviewed & are unremarkable except as noted in HPI and below Physical Exam Exam Exam: No apparent distress Nonicteric Abdomen soft, nondistended Alert and oriented x3, normal gait Vital Signs: Last Vital Signs Pulse 73 07/01/25 14:14 BP 117/59 L 07/01/25 14:14 BMI result Body Mass Index 37.5 Assessment & Plan Assessment & Plan (1) Lower abdominal pain: Code(s): R10.30 - Lower abdominal pain, unspecified Category: Medical (2) Constipation: Code(s): K59.00 - Constipation, unspecified Category: Medical (3) Family history of colon cancer: Code(s): Z80.0 - Family history of malignant neoplasm of digestive organs (4) Fecal incontinence: Code(s): R15.9 - Full incontinence of feces (5) Pelvic floor dysfunction: Code(s): M62.89 - Other specified disorders of muscle Plan 1. Constipation: Pt with recent change in bowel habits in the setting of family history of colon cancer. Reassured that CT without any obvious colon mass or colitis. However needs diagnostic colo anyway. This is currently booked for 07/05. Miralax gatorade prep reviewed again and instructions handed out. 2. Urinary and fecal incontinence Suspect pelvic floor dysfunction. Advise timed rectal evacuation and avoidance of constiaption to avoid overflow incontinence. Can utilize pedi glycerin suppositories before bedtime. If colo unremarkable will investigate with XR defecography and ARMS. Follow-up after colonoscopy Medications: New polyethylene glycol 3350 (Miralax) Mix in 64 oz of gatorade for colonoscopy prep 238 grams PO ONCE 238 grams 0RF glycerin (child) 2 supp HI ONCE 25 ea 1RF 30 days Coding Level of Care Code Est Pt Level 4 (95619) Diagnoses Lower abdominal pain R10.30 Constipation K59.00 Family history of colon cancer Z80.0 Fecal incontinence R15.9 Pelvic floor dysfunction M62.89
[2025-07-01 14:14] VITALS: BP 117/59; PULSE 73; BMI 37.5
--- OUTSIDE RECORDS SUMMARY | 2025-07-01 17:29 | XMS_ITS | Clinical Summary ---
Author Organization [employer] Address [address] [facility] [address] [place] [address] Care Team Providers Care Grip Name Role Phone Delmy Pastrana MD Primary [...] 10/20/19 25 Active Lancets (OneTouch Delica Plus [id number]) misc 10/20/19 Active zolpidem (Ambien) 10 MG tablet Take 1 tablet by mouth at bedtime 04/05/20 Active albuterol 108 (90 Base) MCG/ACT inhalerIndicatio ns:Subacute cough,Dizziness, Wheezing Inhale 2 puffs every 6 (six) hours if needed for wheezing. 18 g 11 05/10/20 25 2025 Active meloxicam (Mobic) 15 MG tabletIndication s:Lumbar radiculopathy TAKE 1 TABLET BY MOUTH EVERY MORNING 30 tablet 1 5:04 PM EST 06/04/20 Active DULoxetine (Cymbalta) [address] capsuleIndicatio ns:Fibromyalgia Take 1 capsule (60 mg) by mouth 2 times daily. Do not crush or chew. 180 capsule 1:23 PM EST 06/24/20 25 2025 Active dicyclomine (Bentyl) 10 MG capsule Take 2 capsules (20 mg) by mouth 4 times daily. 120 capsule 1 11/21/19 25 2024 Discontinued(N on-compliance) meloxicam (Mobic) 15 MG tabletIndication s:Lumbar radiculopathy Take 1 tablet (15 mg) by mouth Once per day. 30 tablet 1 03/21/20 25 2024 Discontinued Active Problems Problem Noted Date Diagnosed [...] Sp CTS release surgery on 2022 at [facility] Assessment & Plan (05/16/2025 2:04 [...] fasting glucose) 03/05/2025 Overview (03/05/2025): Seen at [facility] end[facility] (Dr Lock) due to episode of hypoglycemia on 2019 Assessment & Plan (03/05/2025 10:29 AM EDT): We discussed about decreased calorie intake, weight reduction and moderate exercise as tolerated Order labs She is followed by [facility] endocrinology clinic, will obtain records [...] pain + depression Her son is her SPANISH MOSS PICKER and I discussed with her the importance of having her SPANISH MOSS PICKER been on top of her medical appointments [...] Last pcp visit 3 months ago at [facility] Pmhx: fibromylgia, migraine, depression, sciatic back pain [...] by Bull Myers and Dr. Chavez at [facility], we discussed importance of close [...] Encounters Date Type Department Care Team Description 06/24/2025 2:00 PM EST Office Visit [facility] MEDICINE [address] [place] [phone] [place], [place], MANAGER INSURANCE Fibromyalgia (Primary Dx); Lumbar radiculopathy 06/24/2025 Travel 06/18/2025 Orders Only [facility] External Provider, [facility] 06/18/[address] [address] Delmy Pastrana MD Prior Authorization (PA: Lidocaine 5% Patch) 06/18/[address] [address] Delmy Pastrana MD telephone call 06/01/[address] [address] Janice Randolph MD Lumbar radiculopathy 05/31/2025 Travel 05/20/[address] [address] Delym Pastrana MD Durable Medical Equipment (DME: Wrist Brace) 05/17/[address] [phone] Delmy Pastrana MD DME wrist brace 05/16/2025 12:00 PM EDT Office Visit [address] [address] Delmy Pastrana MD Lumbar radiculopathy (Primary Dx); Carpal tunnel syndrome of right wrist; Breast mass seen on mammogram; Arthritis of left knee; Encounter for immunization; Encounter for vaccination; Dietary counseling; Exercise counseling; Class 1 obesity due to excess calories with serious comorbidity and body mass index (BMI) of 34.0 to 34.9 in adult 05/16/2025 Travel 05/15/[address] [phone] Delmy Pastrana MD CHART PREP 05/10/2025 1:00 PM EDT Office Visit [facility] WALK-IN [address] [address] Garcia Rooney MD Subacute cough (Primary Dx); Dizziness; Wheezing 05/10/2025 Travel 05/09/[address] [phone] Delmy Pastrana MD Nurse Triage 04/23/2025 Patient Outreach [facility] MEDICINE [address] [place] [phone] Delmy Pastrana MD 04/10/2025 Orders Only [facility] MEDICINE [address] [place] [address] [phone] Delmy Pastrana MD 04/08/2025 Patient Outreach [facility] MEDICINE [address] [place] [address] [phone] Delmy Pastrana MD Care Coordination ([facility] f/u, program graduation) 04/08/2025 Patient Outreach [facility] MEDICINE [address] [place] [address] [phone] Delmy Pastrana MD Care Management ([facility] graduation) 04/05/2025 Travel from Last 3 Months Immunizations Immunization Administration [...] your housing situation today? I have dorinda elliott 12/26/[address] you li [...] Sign Reading Time Taken Comments Blood Pressure 121/60 06/24/2025 2:05 PM EST Pulse 60 06/24/2025 2:05 PM EST Temperature 36.3 C (97.3 F) 06/24/2025 2:05 PM EST Respiratory Rate 20 06/24/2025 2:05 PM EST Oxygen Saturation 99% 05/16/2025 12:12 PM EDT Inhaled Oxygen Concentration - - Weight 97.7 kg (215 lb 6.4 oz) 06/24/2025 2:05 P M EST Height 167.6 cm (5' 6 ) 06/24/2025 2:05 PM EST Body Mass Index 34.77 06/24/2025 2:05 PM EST Plan of Treatment Health Maintenance Due Date [...] 12/26/2024 Disability Screening 03/06/2026 03/06/2025 Tobacco Screening 06/26/2026 06/26/2025 Lipid Panel 03/12/2030 03/12/2025 DTaP/Tdap/Td Vaccines (3 [...] Name Priority Date/Time Associated Diagnosis Comments POCT CREATININE GFR Routine 06/18/2025 1 :[address] ABDOMEN PELVIS W CONTRAST Routine 06/18/2025 1:23 PM EST XR CHEST 2 VIEWS Routine 05/10/2025 12:3 4 PM EDT Subacute cough POCT RAPID COVID ANTIGEN Routine 05/10/2025 11:52 AM EDT Subacute cough POCT INFLUENZA B (ID NOW RAPID MOLECULAR) Routine 05/10/2025 11:52 AM EDT Subacute cough POCT INFLUENZA A (ID NOW RAPID MOLECULAR) Routine 05/10/2025 11:52 AM EDT Subacute cough HEPATITIS PANEL, GENERAL Routine 03/12/2025 1:53 PM EDT Depression, unspecified depression type HIV 1/2 ANTIGEN/ANTIBODY, FOURTH GENERATION W/RFL Routine 03/12/2025 1:53 PM EDT Depression, unspecified depression type LIPID PANEL WITH REFLEX TO DIRECT LDL Routine 03/12/2025 1:53 PM EDT IFG (impaired fasting glucose) from Last 3 Months or Most Recently Relevant to Health Maintenance Results * POCT Creatinine GFR (06/18/2025 1:36 PM EST) POCT Creatinine 0.8 0.5 - 1.4 mg/dL [facility] GFR POC >60 [facility] Comment:Chronic Kidney Disea se: Estimated GFR < 60 mL/min/1.93w0Ojqaes Kidney Disease: Estimated GFR < 15 mL/min/1.73m2 06/18/2025 1:36 PM EST 06/18/2025 5:31 PM EST Narrative [facility] - 06/18/2025 5:33 PM EST [id number] us Generic External Data Provider LAB POINT OF CARE TEST DOCKED DEVICE ORDERABLES Final Result [facility] [address] [place] [phone] * CT Abdomen Pelvis w/ Contrast (06/18/2025 1:23 PM EST) Anatomical Region Laterality Modality Body, Pelvis, Abdomen Computed T omography 06/18/2025 1:23 PM EST Narrative 06/18/2025 3:49 PM EST [address] [address] [address] Scan Report Signed Patient: Pratibha Martínez MR#: [id number] : 1970 Acct:[id number] Age/Sex: 55 / F ADM Date: 06/18/25 Loc: HO.CT Attending Dr: Letitia Parker MD Ordering Physician: Letitia Parker MD Date of Service: 06/18/25 Procedure(s): CT abdomen pelvis w IV con Accession Number(s): [id number] cc: Janice Plascencia MD; Letitia Parker MD Report Number: [id number]: Total DLP = 596.00 mGy-cm Reason for Exam: R10.30 - Lower abdominal pain, unspecified EXAMINATION: CT ABDOMEN PELVIS WITH IV CONTRAST HISTORY: R10.30 - Lower abdominal pain, unspecified COMPARISON: Previous CT of the abdomen and pelvis May 2024 TECHNIQUE: CT scan of the abdomen and pelvis was performed following administration of 85 mL Omnipaque 350 using standard departmental protocol. Coronal and sagittal reformatted images were generated and reviewed. This CT exam was performed with one or more of the following dose reduction techniques: automated exposure control, adjustment of the mA and/or kV according to patient size, use of iterative reconstruction technique. DLP: 596 mGy-cm FINDINGS: LOWER CHEST: The visualized lung bases are clear. There is no pleural effusion. CARDIOVASCULATURE: The heart is normal in size. There is no pericardial effusion. LIVER: Low-attenuation liver suggestive of mild fatty infiltration. Liver normal in size and contour. No liver mass is identified. The hepatic and portal veins are patent. GALLBLADDER / BILE DUCTS: The gallbladder is unremarkable. There is no intra or extrahepatic biliary ductal dilatation. SPLEEN: The spleen is normal in size. No focal splenic lesion is identified. PANCREAS: The pancreas is unremarkable in appearance. ADRENAL GLANDS: Within normal limits. KIDNEYS/RETROPERITONEUM: No renal calculi are identified. There is no hydronephrosis. No renal masses are identified. LYMPH NODES: No abdominal or pelvic lymphadenopathy. VASCULATURE: The abdominal aorta is normal in caliber. MESENTERY/PERITONEUM: No free fluid. No masses. There is no free intraperitoneal gas. STOMACH: Normal SMALL BOWEL: The small bowel is normal in caliber. COLON: The colon is unremarkable. APPENDIX: Normal. URINARY BLADDER/PELVIC ORGANS: The urinary bladder is unremarkable. Multiple uterine lesions suggestive of fibroids during up to 2.5 cm. Adnexa appear unremarkable. BONES / SOFT TISSUES: Degenerative changes of the lower lumbar spine. Mild anterior subluxation of L4 with respect to L5 probably secondary to facet arthritis. Surgical changes to the low anterior abdominal wall. No hernia or fluid collection. CT/CT abdomen pelvis w IV con IMPRESSION: No acute findings. Fatty liver. Uterine fibroids. Electronically signed by: Marci Nino MD 06/18/2025 03:46 PM EST Dictated By: Marci Nino MD Signed By: <Electronically signed by Marci Nino MD in OV> 06/18/25 1546 DD/ 1323 TD/TT: 06/18/25 1524 Sheep Shearer: SONG Procedure Note Donotuseinterpreter, Image - 06/18/[address] [place] [address] [address] Scan Report Signed Patient: Pratibha Martínez#: [id number] : 1970Acct:[id number] Age/Sex: 55 / FADM Date: 06/18/25 Loc: HO.CT Attending Dr: Letitia Parker MD Ordering Physician: Letitia Parker MD Date of Service: 06/18/25 Procedure(s): CT abdomen pelvis w IV con Accession Number(s): [id number] cc: Janice Plascencia MD; Letitia Parker MD Report Number: [id number]: Total DLP = 596.00 mGy-cm Reason for Exam: R10.30 - Lower abdominal pain, unspecified EXAMINATION: CT ABDOMEN PELVIS WITH IV CONTRAST HISTORY: R10.30 - Lower abdominal pain, unspecified COMPARISON: Previous CT of the abdomen and pelvis May 2024 TECHNIQUE: CT scan of the abdomen and pelvis was performed following administration of 85 mL Omnipaque 350 using standard departmental protocol. Coronal and sagittal reformatted images were generated and reviewed. This CT exam was performed with one or more of the following dose reduction techniques: automated exposure control, adjustment of the mA and/or kV according to patient size, use of iterative reconstruction technique. DLP: 596 mGy-cm FINDINGS: LOWER CHEST: The visualized lung bases are clear. There is no pleural effusion. CARDIOVASCULATURE: The heart is normal in size. There is no pericardial effusion. LIVER: Low-attenuation liver suggestive of mild fatty infiltration. Liver normal in size and contour. No liver mass is identified. The hepatic and portal veins are patent. GALLBLADDER / BILE DUCTS: The gallbladder is unremarkable. There is no intra or extrahepatic biliary ductal dilatation. SPLEEN: The spleen is normal in size. No focal splenic lesion is identified. PANCREAS: The pancreas is unremarkable in appearance. ADRENAL GLANDS: Within normal limits. KIDNEYS/RETROPERITONEUM: No renal calculi are identified. There is no hydronephrosis. No renal masses are identified. LYMPH NODES: No abdominal or pelvic lymphadenopathy. VASCULATURE: The abdominal aorta is normal in caliber. MESENTERY/PERITONEUM: No free fluid. No masses. There is no free intraperitoneal gas. STOMACH: Normal SMALL BOWEL: The small bowel is normal in caliber. COLON: The colon is unremarkable. APPENDIX: Normal. URINARY BLADDER/PELVIC ORGANS: The urinary bladder is unremarkable. Multiple uterine lesions suggestive of fibroids during up to 2.5 cm. Adnexa appear unremarkable. BONES / SOFT TISSUES: Degenerative changes of the lower lumbar spine. Mild anterior subluxation of L4 with respect to L5 probably secondary to facet arthritis. Surgical changes to the low anterior abdominal wall. No hernia or fluid collection. CT/CT abdomen pelvis w IV con IMPRESSION: No acute findings. Fatty liver. Uterine fibroids. Electronically signed by: Marci Nino MD 06/18/2025 03:46 PM EST Dictated By: Marci Nino MD Signed By: <Electronically signed by Marci Nino MD in OV> 06/18/25 1546 DD/ 1323 TD/TT: 06/18/25 1524 Sheep Shearer: SONG us [facility] External Provider IMG CT PROCEDURES Final Result * XR Chest 2 Views (05/10/2025 12:34 PM EDT) Anatomical Region Laterality Modality Chest Radiographic Claudia ging 05/10/2025 12:3 4 PM EDT Narrative 05/10/2025 12:50 PM EDT [facility] [address] [place] [address] XRay Report Signed Patient: Pratibha Martínez MR#: [id number] : 1970 Acct:[id number] Age/Sex: 55 / F ADM Date: 05/10/25 Loc: HO.HHCX Attending Dr: Garcia Rooney MD Ordering Physician: Garcia Rooney MD Date of Service: 05/10/25 Procedure(s): XR chest 2V Accession Number(s): [id number] cc: Garcia Rooney MD Reason for Exam: [...] 05/10/25 1247 DD/ 1234 TD/TT: 05/10/25 1235 Sheep Shearer: Procedure Note Donotuseinterpreter, Image - 05/10/2025 [facility] [address] [place] [address] XRay Report Signed Patient: Pratibha MartínezMR#: [id number] : 1970Acct:[id number] Age/Sex: 55 / FADM Date: 05/10/25 Loc: HO.HHCX Attending Dr: Garcia Rooney MD Ordering Physician: Garcia Rooney MD Date of Service: 05/10/25 Procedure(s): XR chest 2V Accession Number(s): [id number] cc: Garcia Rooney MD Reason for Exam: [...] 05/10/25 1247 DD/ 1234 TD/TT: 05/10/25 1235 Sheep Shearer: us Garcia Rooney MD IMG XR PROCEDURES Final Result * Influenza B (ID NOW Rapid Molecular) (05/10/2025 11:52 AM EDT) Influenza B Negative Negative, Indeterminate [facility] Swab 05/10/2025 11:5 2 AM EDT us Garcia Rooney MD POINT OF CARE TEST ENTER/EDIT OR DERABLES Final Result [facility] [address] [place] [address] [phone] * Influenza A (ID NOW Rapid Molecular) (05/10/2025 11:52 AM EDT) Pathologist [facility] Influenza A Negative Negative, Indeterminate [facility] Swab 05/10/2025 11:5 2 AM EDT us Garcia Rooney MD POINT OF CARE TEST ENTER/EDIT OR DERABLES Final Result [facility] [address] [place] [phone] * POCT Rapid COVID Ag (05/10/2025 11:52 AM EDT) [facility] Rapid COVID Ag Negative Swab 05/10/2025 11:5 2 AM EDT us Garcia Rooney MD POINT OF CARE TEST ENTER/EDIT OR DERABLES Final Result * Lipid Panel with Reflex to Direct LDL (03/12/2025 1:53 PM EDT) [facility] Triglycerides 75 <150 mg/dL [facility] Comment:Desirable Triglyceri de: less than 150 mg/dLBorderline High Triglyceride 150-199 mg/dLHigh Triglyceride: 200-499 mg/dLVery High Triglyceride: greater than or equal to 5OO mg/dL Cholesterol 138 <200 mg/dL [facility] Comment:Desirable Cholestero l: less than 200 mg/dLBorderline High Cholesterol: 200-239 mg/dLHigh Cholesterol: greater than 239 mg/dL LDL Cholesterol Calculated 73 <100 mg/dL [facility] Comment:Desirable LDL: less than 100 mg/dLNear Optimal/Above Optimal LDL: 110- 129 mg/dLBorderline High LDL: 130-159 mg/dLHigh LDL: 160-189 mg/dLVery High LDL: greater than or equal to 190 mg/dL HDL Cholesterol 50 >40 mg/dL [facility] Comment:Desirable HDL: great er than 40 mg/dL Note: This HDL assay may give artificially low results in patients with liver disease. Blood 03/12/2025 1:53 PM EDT 03/12/2025 5:45 PM EDT Delmy Pastrana MD LAB BLOOD ORDERABLES Fin al Result Performing Organization Address [facility] de Phone Number [facility] [address] [place] [phone] * Hepatitis Panel, General (03/12/2025 1:53 PM EDT) Hepatitis A IgM Nonreactive Nonreactive [facility] Comment:IgM antibodies to BAE V not detected; does not exclude earlyacute or recovered HAV infection. ~Hepatitis B Surface Antibody NONREACTIVE Nonreactive [facility] Comment:Nonreactive: < 8.00 mIU/mL Hepatitis B Core Antibody Nonreactive Nonreactive [facility] Hepatitis C Antibody Nonreactive Nonreactive [facility] Comment:Antibodies to HCV no t detected; does not exclude early acuteHCV infection. Hepatitis B Surface Ag Negative Negative [facility] Blood 03/12/2025 1:53 PM EDT 03/12/2025 5:45 PM EDT Delmy Pastrana MD LAB BLOOD ORDERABLES Fin al Result Performing Organization Address [facility] de Phone Number [facility] [address] [place] [phone] * HIV-1/2 Antigen and Antibodies, Fourth Generation, with Reflexes (03/12/2025 1:53 PM EDT) HIV AB/AG Nonreactive Nonreactive [facility] Comment:HIV-1 p24 Ag and/or HIV-1/HIV-2 Ab not detected.A test result that is nonreactive does not exclude thepossibility of exposure to or infection with HIV-1 and/orHIV-2. Nonreactive results in this assay for individualswith prior exposure to HIV-1 and/or HIV-2 may be due toantigen and antibody levels that are below the limit ofdetection of this assay.[employer] HIV Ag/Ab Combo assay result andsupplemental assay results should be interpreted inconjunction with the patient's clinical presentation,history and other laboratory results. If the results areinconsistent with clinical evidence, additional testing issuggested to confirm the result. Blood Venous blood specimen / Unknown 03/12/2025 1:53 PM EDT 03/12/2025 5:45 PM EDT us Delmy Pastrana MD LAB BLOOD ORDERABLES Fin al Result [facility] [address] [place] [phone] from Last 3 Months or Most Recently Relevant to Health Maintenance Insurance [facility] C3 Care Teams Grip Relationship Specialty Start Date End Date Delmy Pastrana MD [address] [place] [phone] PCP - General Internal Medicine 03/05/25
--- OUTSIDE RECORDS SUMMARY | 2025-07-01 17:29 | XMS_ITS | Encounter Summary ---
Author Organization [employer] Address [address] [facility] [address] [place] [address] Care Team Providers Care Gift Shop Manager Name Role Phone Delmy Pastrana MD Primary Care Provider + Reason for Visit * Reason Onset Date Comments Durable Medical Equipment 05/20/2025 DME: W rist Brace Encounter Details Date Type Department Care Team ([facility] st Contact Info) Description 05/20/2025 Telephone [facility] [address] [place], [place] [phone] Delmy Pastrana MD [address] [place], [place] [phone] Durable Medical Equipment (DME: Wrist Brace) Social [...] 11:17 AM EDT Tc from Lia at [facility] stating they are not able to bill pt insurance for DME wrist brace and they are requesting for order to be sent too [facility] Contact Lia for [phone] documented in this encounter Plan of Treatment Not on file documented as of this encounter Visit Diagnoses Not on filedocumented in this encounter Additional Health Concerns Assessment Noted Time PHQ-9 Depression Total Score: 20 025 8:44 AM EDT documented as of this encounter Care Teams Gift Shop Manager Relationship Specialty Start Date End Date Delmy Pastrana MD [address] [place] [phone] PCP - General Internal Medicine 03/05/25 documented as of this encounter
== END 2025-07-01 14:55 | disposition home or self-care (01) ==
LOC: HO.HGI 14:03
PROVIDERS: Visit Provider Internal Medicine
DX: R10.30 Lower abdominal pain, unspecified (principal); K59.00 Constipation, unspecified; Z80.0 Family history of malignant neoplasm of digestive organs; R15.9 Full incontinence of feces; M62.89 Other specified disorders of muscle
CPT/HCPCS: 99214

== ENCOUNTER 2025-07-05 10:13 | Day surgery (SDC) | payer OTHER, MEDICAID, SELFPAY ==
--- OUTSIDE RECORDS SUMMARY | 2025-06-13 15:37 | XMS_ITS | Encounter Summary ---
Author Organization [employer] Address [address] [place] [address] Care Team Providers Care Business Dean Name Role Phone Delmy Pastrana MD Primary Care Provider + Reason for Visit * Reason Onset Date Comments Durable Medical Equipment 05/20/2025 DME: W rist Brace Encounter Details Date Type Department Care Team ([facility] st Contact Info) Description 05/20/2025 Telephone [facility] MEDICINE [address], [place] [phone] Delmy Pastrana MD [address] [place], [place] [phone] Durable Medical Equipment (DME: Wrist Brace) Social History Tobacco Use Types Packs/Day Years [...] PM EDT documented as of this encounter Miscellaneous Notes * Telephone Encounter - Isabel Her - 05/23/2025 3:36 PM EDT Order was sent via FAX to [facility] with supporting documentation. Confirmation was uploaded to Media. * Telephone Encounter - Jeronimo Tompkins - 05/20/2025 11:17 AM EDT Tc from Lia at [facility] stating they are not able to bill pt insurance for DME wrist brace and they are requesting for order to be sent too [facility] Contact Lia for [phone] documented in this encounter Plan of Treatment Not on file documented as of this encounter Visit Diagnoses Not on filedocumented in this encounter Additional Health Concerns Assessment Noted Time PHQ-9 Depression Total Score: 20 025 8:44 AM EDT documented as of this encounter Care Teams Business Dean Relationship Specialty Start Date End Date Delmy Pastrana MD [address] [place] [phone] PCP - General Internal Medicine 03/05/25 documented as of this encounter
--- OUTSIDE RECORDS SUMMARY | 2025-06-13 15:37 | XMS_ITS | Clinical Summary ---
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 11/14/19 25 Active lidocaine (Lidoderm) 5 % patchIndications :Lumbar radiculopathy Apply 1 patch topically Once per day. Remove & discard patch within 12 hours or as directed by MD. 30 patch 2 03/21/20 25 Active famotidine (Pepcid) 20 MG tablet [...] DAILY MAXIMUM TOTAL DAILY DOSE 2 CAPSULES 04/12/20 25 Active ferrous sulfate 325 (65 Fe) MG EC tablet TAKE 1 TABLET BY MOUTH EVERY OTHER DAY. TAKE WITH vitamin c TO HELP WITH absorption 07/03/20 Active OneTouch Ultra Test test strip 10/20/19 Active Lancets (OneTouch Delica Plus [id number]) misc 10/20/19 Active zolpidem (Ambien) 10 MG tablet Take 1 tablet by mouth at bedtime 04/05/20 Active albuterol 108 (90 Base) MCG/ACT inhalerIndicatio ns:Subacute cough,Dizziness, Wheezing Inhale 2 puffs every 6 (six) hours if needed for wheezing. 18 g 11 05/10/20 25 2025 Active meloxicam (Mobic) 15 MG tabletIndication s:Lumbar radiculopathy TAKE 1 TABLET BY MOUTH EVERY MORNING 30 tablet 1 06/04/20 Active dicyclomine (Bentyl) 10 MG capsule Take 2 capsules (20 mg) by mouth 4 times daily. 120 capsule 1 11/21/19 25 2024 Discontinued(N on-compliance) acetaminophen (Tylenol Extra Strength) 500 MG tabletIndication s:Lumbar radiculopathy Take 1 tablet (500 mg) by mouth every 8 (eight) hours if needed for mild pain. 30 tablet 2 03/21/20 25 2024 meloxicam (Mobic) 15 MG tabletIndication s:Lumbar radiculopathy Take 1 tablet (15 mg) by mouth Once per day. 30 tablet 1 03/21/20 25 2024 Discontinued predniSONE (Deltasone) 20 MG tabletIndication s:Subacute cough,Dizziness, Wheezing Take 2 tablets (40 mg) by mouth Once per day for 5 days. 10 tablet 05/10/20 25 2024 benzonatate (Tessalon Perles) 100 MG capsuleIndicatio ns:Subacute cough,Dizziness, Wheezing Take 1 capsule (100 mg) by mouth if needed in the morning, at noon, and at bedtime for cough for up to 7 days. Do not crush or chew. 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 Lumbar radiculopathy 03/21/2025 Assessment & Plan (05/16/2025 1:57 PM EDT): Continue Tylenol and Lidoderm patch. Refer to PT (she was doing PT for plantar fasciitis only). I gave her information regarding acupuncture clinic Assessment & Plan (03/21/2025 11:20 PM EDT): [...] Sp CTS release surgery on 2022 at [facility] Assessment & Plan (05/16/2025 2:04 PM EDT): Recurrent pain Refer to OT Advised to wear wrist brace especially at night Assessment & Plan (03/05/2025 10:34 AM EDT): Status post carpal tunnel release 2 years ago, has residual weakness. Obtain report of most recent NCS and follow-up with me Encounter for screening colonoscopy 03/05/2025 IFG (impaired fasting glucose) 03/05/2025 Overview (03/05/2025): Seen at [facility] endocrinology clinic (Dr Lock) due to episode of hypoglycemia on 2019 Assessment & Plan (03/05/2025 10:29 AM EDT): We discussed about decreased calorie intake, weight reduction and moderate exercise as tolerated Order labs She is followed by [facility] endocrinology clinic, will obtain records and [...] pain + depression Her son is her WATCH DIAL STONER and I discussed with her the importance of having her WATCH DIAL STONER been on top of her medical appointments and that she picks up medications at the pharmacy. Patient will be referred for med boxes to improve compliance Degeneration of intervertebr al disc of lumbar region with discogenic back pain 03/05/2025 Breast mass seen on mammogram 03/05/2025 Overview (03/05/2025): Mammogram on 02/28/25 showed bl Assessment & Plan (05/16/2025 1:56 PM EDT): Due to the presence of complex cysts, I will refer to breast cancer center for further evaluation. Encounter to establish care 11/20/2024 Assessment & Plan (11/20/2024 6:00 PM EDT): Last pcp visit 3 months ago at [facility] Pmhx: fibromylgia, migraine, depression, sciatic back [...] by Bull Myers and Dr. Chavez at [facility], we discussed importance of close follow-up, [...] Encounters Date Type Department Care Team Description 06/01/2025 Refill [facility] [address] [place] [phone] Janice Randolph MD Lumbar radiculopathy 05/31/2025 Travel 05/20/[address] [address] Delmy Pastrana MD Durable Medical Equipment (DME: Wrist Brace) 05/17/[address] [address] Delmy Pastrana MD DME wrist brace 05/16/2025 12:00 PM EDT Office Visit [address] [address] Delmy Pastrana MD Lumbar radiculopathy (Primary Dx); Carpal tunnel syndrome of right wrist; Breast mass seen on mammogram; Arthritis of left knee; Encounter for immunization; Encounter for vaccination; Dietary counseling; Exercise counseling; Class 1 obesity due to excess calories with serious comorbidity and body mass index (BMI) of 34.0 to 34.9 in adult 05/16/2025 Travel 05/15/[address] [address] Delmy Pastrana MD CHART PREP 05/10/2025 1:00 PM EDT Office Visit [facility] [address] [place] [phone] Garcia Rooney MD Subacute cough (Primary Dx); Dizziness; Wheezing 05/10/2025 Travel 05/09/[address] [address] Delmy Pastrana MD Nurse Triage 04/23/2025 Patient Outreach [address] [address] Delmy Pastrana MD 04/10/2025 Orders Only [address] [address] Delmy Pastrana MD 04/08/2025 Patient Outreach [address] [address] Delmy Pastrana MD Care Coordination ([facility]/Narendra Mendoza f/u, program graduation) 04/08/2025 Patient Outreach [address] [address] Delmy Pastrana MD Care Management ([facility] graduation) 04/05/2025 Travel 03/22/2025 Results Follow-Up [address] [address] Janice Randolph MD [facility] US Lower Extremity Venous Duplex Bilateral 03/22/2025 Orders Only [address] [address] Janice Randolph MD 03/21/2025 1:00 PM EDT Office Visit [address] [address] Janice Randolph MD Lumbar radiculopathy (Primary Dx); Leg swelling; Bilateral leg edema 03/21/2025 Results Follow-Up [address] [address] Janice Randolph MD XR Lumbar Spine 2-3 Views 03/21/2025 Travel 03/20/[address] [address] Delmy Pastrana MD chartprep 03/20/[address] [address] Delmy Pastrana MD Nurse Triage 03/20/2025 Patient Outreach [address] [address] Delmy Pastrana MD Care Management ([facility] follow up call) 03/20/2025 Patient Outreach [address] [address] Victoriano, Doretha, MD Care Coordination ([facility] f/u call) from Last 3 Months Immunizations Immunization Administration Dates Next Due Influenza, IIV3, injectable 06/27/2017, 6 Influenza, seasonal, injectable, preservative fr ee 05/16/2025,07/11/2019 Pfizer Covid-19 Vaccine 12+ 05/16/2025 Pneumococcal Conjugate PCV 20 04/12/2025 Tdap 04/12/2025,12/06/2013 [...] Sign Reading Time Taken Comments Blood Pressure 110/80 05/16/2025 12:12 PM EDT Pulse 64 05/16/2025 12:12 PM EDT Temperature 36 C (96.8 F) 05/16/2025 12:12 PM EDT Respiratory Rate 16 05/16/2025 12:12 PM EDT Oxygen Saturation 99% 05/16/2025 12:12 PM EDT Inhaled Oxygen Concentration - - Weight 95.7 kg (211 lb) 05/16/2025 12:12 PM EDT Height 167.6 cm (5' 6 ) 05/16/2025 12:12 PM EDT Body Mass Index 34.06 05/16/2025 12:12 PM EDT Plan of Treatment Health Maintenance Due Date Last Done Comments CT Colonography 1970 Colonoscopy 1970 Colorectal Cancer Screening 1970 FIT DNA/Cologuard 1970 FIT 1970 FOBT 1970 Sigmoidoscopy 1970 Hepatitis A Vaccines (1 of 2 - Risk 2-dose series) 1989 Hepatitis B Vaccines (1 of 3 - 19+ 3-dose series) 1989 Pap Smear 1991 Cervical Cancer Screening 2000 HPV/Cotest 2000 RSV Patients and Patients Aged 60 years or older (1 - Risk 50-74 years 1-dose series) 2020 Zoster Vaccines (1 of 2) 2020 Mammogram 08/31/2025 Depression Monitoring 09/06/2025 03/06/2025, 025 Alcohol/Substance Use Screening 12/26/2025 12/26/2024 SDOH Screening 12/26/2025 12/26/2024 Disability Screening 03/06/2026 03/06/2025 Tobacco Screening 05/16/2026 05/16/2025 Lipid Panel 03/12/2030 03/12/2025 DTaP/Tdap/Td Vaccines (3 - Td or Tdap) 04/12/2035 04/12/2025, 12/06/2013 HIV Screening Completed 03/12/2025 Hepatitis C Screening Completed 03/12/2025 Pneumococcal Vaccine: 50+ Years Completed 04/12/2025 COVID-19 Vaccine Completed 05/16/2025, , 12/02/2020 Influenza Vaccine Completed 05/16/2025, , 06/27/2017, Additional history exists HIB Vaccines Aged Out No longer eligi [...] Procedure Name Priority Date/Time Associated Diagnosis Comments XR CHEST 2 VIEWS Routine 05/10/2025 12:3 4 PM EDT Subacute cough POCT RAPID COVID ANTIGEN Routine 05/10/2025 11:52 AM EDT Subacute cough POCT INFLUENZA B (ID NOW RAPID MOLECULAR) Routine 05/10/2025 11:52 AM EDT Subacute cough POCT INFLUENZA A (ID NOW RAPID MOLECULAR) Routine 05/10/2025 11:52 AM EDT Subacute cough VASC US LOWER EXTREMITY VENOUS DUPLEX BILATERAL Routine 03/22/2025 1:08 PM EDT XR LUMBAR SPINE 2-3 VIEWS Routine 03/21/2025 1:27 PM EDT Lumbar radiculopathy HEPATITIS PANEL, GENERAL Routine 03/12/2025 1:53 PM EDT Depression, unspecified depression type HIV 1/2 ANTIGEN/ANTIBODY, FOURTH GENERATION W/RFL Routine 03/12/2025 1:53 PM EDT Depression, unspecified depression type LIPID PANEL WITH REFLEX TO DIRECT LDL Routine 03/12/2025 1:53 PM EDT IFG (impaired fasting glucose) from Last 3 Months or Most Recently Relevant to Health Maintenance Results * XR Chest 2 Views (05/10/2025 12:34 PM EDT) Anatomical Region Laterality Modality Chest Radiographic Claudia ging 05/10/2025 12:3 4 PM EDT Narrative 05/10/2025 12:50 PM EDT [facility] [address] [place] [address] XRay Report Signed Patient: Pratibha Martínez MR#: [id number] : 1970 Acct:[id number] Age/Sex: 55 / F ADM Date: 05/10/25 Loc: HO.HHCX Attending Dr: Garcia Rooney MD Ordering Physician: Garcia Rooney MD Date of Service: 05/10/25 Procedure(s): XR chest 2V Accession Number(s): [id number] cc: Garcia Rooney MD Reason for Exam: One month of non productive cough following a viral URI EXAMINATION: XR CHEST 2 VIEWS HISTORY: One month of non productive cough following a viral URI COMPARISON: Comparison is made with the prior examination dated 11/26/2024. FINDINGS: PA and lateral views of the chest are submitted. The lungs are expanded and clear. There is minimal blunting of the right posterior costophrenic angle which may represent pleural thickening or a tiny pleural effusion. There is no pneumothorax or pulmonary vascular congestion. The heart is normal in size. The bones are intact. XR/XR chest 2V IMPRESSION: Possible trace right pleural effusion versus pleural thickening. The lungs are clear. Electronically signed by: Luis Garrison MD 05/10/2025 12:47 PM EDT Dictated By: Luis Garrison MD Signed By: <Electronically signed by Luis Garrison MD in OV> 05/10/25 1247 DD/ 1234 TD/TT: 05/10/25 1235 Operations Officer Trust Department: Procedure Note Donotuseinterpreter, Image - 05/10/2025 [facility] [address] [place] [place] [address] XRay Report Signed Patient: Pratibha MartínezMR#: [id number] : 1970Acct:[id number] Age/Sex: 55 / FADM Date: 05/10/25 [facility]: Garcia Rooney MD Ordering Physician: Garcia Rooney MD Date of Service: 05/10/25 Procedure(s): XR chest 2V Accession Number(s): [id number] cc: Garcia Rooney MD Reason for Exam: One month of non productive cough following a viral URI EXAMINATION: XR CHEST 2 VIEWS HISTORY: One month of non productive cough following a viral URI COMPARISON: Comparison is made with the prior examination dated 11/26/2024. FINDINGS: PA and lateral views of the chest are submitted. The lungs are expanded and clear. There is minimal blunting of the right posterior costophrenic angle which may represent pleural thickening or a tiny pleural effusion. There is no pneumothorax or pulmonary vascular congestion. The heart is normal in size. The bones are intact. XR/XR chest 2V IMPRESSION: Possible trace right pleural effusion versus pleural thickening. The lungs are clear. Electronically signed by: Luis Garrison MD 05/10/2025 12:47 PM EDT Dictated By: Luis Garrison MD Signed By: <Electronically signed by Luis Garrison MD in OV> 05/10/25 1247 DD/ 1234 TD/TT: 05/10/25 1235 Operations Officer Trust Department: us Garcia Rooney MD IMG XR PROCEDURES Final Result * Influenza B (ID NOW Rapid Molecular) (05/10/2025 11:52 AM EDT) Influenza B Negative Negative, Indeterminate [facility] Swab 05/10/2025 11:5 2 AM EDT us Garcia Rooney MD POINT OF CARE TEST ENTER/EDIT OR DERABLES Final Result Performing Organization Address City/[facility]/ZIP Co de Phone Number [facility] [address] [place] [phone] * Influenza A (ID NOW Rapid Molecular) (05/10/2025 11:52 AM EDT) Influenza A Negative Negative, Indeterminate [facility] Swab 05/10/2025 11:5 2 AM EDT us Garcia Rooney MD POINT OF CARE TEST ENTER/EDIT OR DERABLES Final Result Performing Organization Address [facility] Co de Phone Number [facility] [address] [place] [phone] * POCT Rapid COVID Ag (05/10/2025 11:52 AM EDT) Rapid COVID Ag Negative Swab 05/10/2025 11:5 2 AM EDT us Garcia Rooney MD POINT OF CARE TEST ENTER/EDIT OR DERABLES Final Result * VASC US Lower Extremity Venous Duplex Bilateral (03/22/2025 1:08 PM EDT) 03/22/2025 1:08 PM EDT Narrative [facility] - 03/22/2025 1:48 PM EDT [address] [address] Ultrasound Report Signed Patient: Pratibha aMrtínez MR#: [id number] : 1970 Acct:[id number] Age/Sex: 55 / F ADM Date: 03/22/25 Loc: HO.US Attending Dr: Janice Schmidt MD Ordering Physician: Janice Randolph MD Date of Service: 03/22/25 Procedure(s): US venous duplex LE BI Accession Number(s): [id number] cc: Janice Randolph MD EXAMINATION: US TRIPLEX [...] Eleazar Aquino MD 03/22/2025 01:45 PM EDT RP Dictated By: Eleazar Aquino MD Signed By: <Electronically signed by Eleazar Aquino MD in OV> 03/22/25 1345 DD/ 1308 TD/TT: 03/22/25 1322 Operations Officer Trust Department: Procedure Note Donotuseinterpreter, Image - 03/22/2025 [place] [address] Ultrasound Report Signed Patient: Pratibha Martínez#: MM [id number] : 1970Acct:[id number] Age/Sex: 55 / FADM Date: 03/22/25 Loc: . Attending Dr: Janice Schmidt MD Ordering Physician: Janice Randolph MD Date of Service: 03/22/25 Procedure(s): US venous duplex LE BI Accession Number(s): [id number] cc: Janice Randolph MD EXAMINATION: US TRIPLEX [...] Eleazar Aquino MD 03/22/2025 01:45 PM EDT RP Dictated By: Eleazar Aquino MD Signed By: <Electronically signed by Eleazar Aquino MD in OV> 03/22/25 1345 DD/ 1308 TD/TT: 03/22/25 1322 Operations Officer Trust Department: us Janice Schmidt MD CV VASCULAR PROCE DURES Final Result [facility] [address] [place] [phone] * XR Lumbar Spine 2-3 Views (03/21/2025 1:27 PM EDT) Anatomical Region Laterality Modality Spine, L-spine Radiographic Claudia ging 03/21/2025 1:27 PM EDT Narrative 03/21/2025 2:22 PM EDT [address] [address] XRay Report Signed Patient: Pratibha Martínez MR#: [id number] : 1970 Acct:[id number] Age/Sex: 55 / F ADM Date: 03/21/25 Loc: HO.HHCX Attending Dr: Janice Schmidt MD Ordering Physician: Janice Randolph MD Date of Service: 03/21/25 Procedure(s): XR lumbar spine 2-3V Accession Number(s): [id number] cc: Delmy Pastrana MD; Janice Randolph MD [...] 03/21/25 1420 DD/ 1327 TD/TT: 03/21/25 1415 Operations Officer Trust Department: Procedure Note Donotuseinterpreter, Image - 03/21/[address] [address] XRay Report Signed Patient: Pratibha MartínezMR#: [id number] : 1970Acct:[id number] Age/Sex: 55 / FADM Date: 03/21/25 Loc: HO.HHCX Attending Dr: Janice Schmidt MD Ordering Physician: Janice Randolph MD Date of Service: 03/21/25 Procedure(s): XR lumbar spine 2-3V Accession Number(s): [id number] cc: Delmy Pastrana MD; Janice Randolph MD [...] 03/21/25 1420 DD/ 1327 TD/TT: 03/21/25 1415 Operations Officer Trust Department: us Janice Schmidt MD IMG XR PROCEDURES Final Result * Lipid Panel with Reflex to Direct LDL (03/12/2025 1:53 PM EDT) Triglycerides 75 <150 mg/dL [facility] Comment:Desirable Triglyceri de: less than 150 mg/dLBorderline High Triglyceride 150-199 mg/dLHigh Triglyceride: 200-499 mg/dLVery High Triglyceride: greater than or equal to 5OO mg/dL Cholesterol 138 <200 mg/dL [facility] Comment:Desirable Cholestero l: less than 200 mg/dLBorderline High Cholesterol: 200-239 mg/dLHigh Cholesterol: greater than 239 mg/dL LDL Cholesterol Calculated 73 <100 mg/dL [facility] Comment:Desirable LDL: less than 100 mg/dLNear Optimal/Above Optimal LDL: 110- 129 mg/dLBorderline High LDL: 130-159 mg/dLHigh LDL: 160-189 mg/dLVery High LDL: greater than or equal to 190 mg/dL HDL Cholesterol 50 >40 mg/dL [facility] Comment:Desirable HDL: great er than 40 mg/dL Note: This HDL assay may give artificially low results in patients with liver disease. Blood 03/12/2025 1:53 PM EDT 03/12/2025 5:45 PM EDT us Delmy Pastrana MD LAB BLOOD ORDERABLES Fin al Result [facility] [address] [place] [phone] * Hepatitis Panel, General (03/12/2025 1:53 PM EDT) Hepatitis A IgM Nonreactive Nonreactive [facility] Comment:IgM antibodies to BAE V not detected; does not exclude earlyacute or recovered HAV infection. ~Hepatitis B Surface Antibody NONREACTIVE Nonreactive [facility] Comment:Nonreactive: < 8.00 mIU/mL Hepatitis B Core Antibody Nonreactive Nonreactive [facility] Hepatitis C Antibody Nonreactive Nonreactive [facility] Comment:Antibodies to HCV no t detected; does not exclude early acuteHCV infection. Hepatitis B Surface Ag Negative Negative [facility] Blood 03/12/2025 1:53 PM EDT 03/12/2025 5:45 PM EDT us Delmy Pastrana MD LAB BLOOD ORDERABLES Fin al Result Performing Organization Address [facility] Co de Phone Number [facility] [address] [place] [phone] * HIV-1/2 Antigen and Antibodies, Fourth Generation, with Reflexes (03/12/2025 1:53 PM EDT) [facility] HIV AB/AG Nonreactive Nonreactive [facility] Comment:HIV-1 p24 Ag and/or HIV-1/HIV-2 Ab not detected.A test result that is nonreactive does not exclude thepossibility of exposure to or infection with HIV-1 and/orHIV-2. Nonreactive results in this assay for individualswith prior exposure to HIV-1 and/or HIV-2 may be due toantigen and antibody levels that are below the limit ofdetection of this assay.The Cerebrex HIV Ag/Ab Combo assay result andsupplemental assay results should be interpreted inconjunction with the patient's clinical presentation,history and other laboratory results. If the results areinconsistent with clinical evidence, additional testing issuggested to confirm the result. Blood Venous blood specimen / Unknown 03/12/2025 1:53 PM EDT 03/12/2025 5:45 PM EDT us Delmy Pastrana MD LAB BLOOD ORDERABLES Fin al Result Performing Organization Address City/[facility]/ZIP Co de Phone Number [facility] [address] [place] [phone] from Last 3 Months or Most Recently Relevant to Health Maintenance Insurance [facility] C3 Care Teams Wire Winding Machine Operator Relationship Specialty Start Date End Date Delmy Pastrana MD [address] [place] [phone] PCP - General Internal Medicine 03/05/25
--- NOTE | 2025-07-02 13:04 | HO.ANESPROP2 ---
HPI - Anesthesia Eval Consult details Narrative: 55 yr old female for colonosocpy PMFSH Active Problems Active Problems: All Active Problems Constipation (Acute) Lower abdominal pain (Acute) Physical deconditioning (Acute) Fibromyalgia (Acute) Generalized weakness (Acute) Contusion of right middle finger (Acute) Left ankle sprain (Acute) COVID-19 (Acute) Past Medical History Medical History Depression Migraines Fibromyalgia No significant medical problems Social History Social History Alcohol intake: never Patient Tobacco Use Status: Never used Tobacco service: No Current occupational status: unemployed Meds Allergies Allergy/AdvReac Type Severity Reaction Status Date / Time No Known Allergies (No Known Allergy Verified 07/01/25 14:16 Allergies*) Home Medications ?Medication ?Instructions ?Recorded ?Confirmed ?Last Taken ?Type ferrous sulfate 325 mg (65 mg 325 mg PO DAILY 05/23/24 05/23/24 05/23/24 History iron) tablet,delayed release gabapentin 800 mg tablet 800 mg PO BID 05/23/24 05/23/24 05/23/24 History sumatriptan succinate 50 mg tablet 50 mg PO DAILY PRN Migraine 05/23/24 05/23/24 Unknown History Headache trazodone 100 mg tablet 100 mg PO BEDTIME insomnia 05/23/24 05/23/24 05/22/24 History venlafaxine 150 mg 150 mg PO DAILY 05/23/24 05/23/24 05/23/24 History capsule,extended release 24 hr duloxetine 30 mg capsule,delayed 30 mg PO BID 04/15/25 Unknown History release famotidine 20 mg tablet 20 mg PO DAILY 04/15/25 Unknown History topiramate 50 mg tablet mg PO 04/15/25 Unknown History ziprasidone HCl 20 mg capsule 20 mg PO BEDTIME 04/15/25 Unknown History zolpidem 5 mg tablet 5 mg PO BEDTIME PRN insomnia 04/15/25 Unknown History meloxicam 15 mg tablet 15 mg PO DAILY 07/01/25 Unknown History
[2025-07-03 14:34] VITALS: BMI 37.6
[2025-07-05 12:54] VITALS: BP 143/83; PULSE 68; RESP 16; TEMP 36.1; O2SAT 99
[2025-07-05] MEDS: Lactated Ringers 1,000 ML 100 ML IVCONT (12:54)
--- NOTE | 2025-07-05 15:09 | MHC.SHP ---
Pre-Procedural Eval Section A - 24 Hr Update-Section A only Date of Service: 07/05/25 The patient is an INPATIENT: No The patient has been examined within 24 hours of the surgical procedure. The History & Physical has been completed within 30 days and I have reviewed it.: Yes Section B - Complete if H&P > 30 days Chief Complaint: Lower abdominal pain, unspecified Allergies: Allergies Allergy/AdvReac Type Severity Reaction Status Date / Time No Known Allergies (No Known Allergy Verified 07/01/25 14:16 Allergies*) Plan Diagnosis/Plan: Unchanged I have reviewed the history and physical and performed a pertinent physical examination on my patient. No changes have occurred unless specified. Time Spent With Patient Time: Total time managing care of this patient today ____ minutes.
--- NOTE | 2025-07-05 15:50 | P.OPN-COLO_ITS ---
Colonoscopy Operative Note Operative Note Date of Service: 07/05/25 Narrative: Procedure: Colonoscopy Indication: Change in bowel habits Endoscopist: Letitia Parker MD Anesthesia Provider: Enrique Bucio MD Anesthesia type: MAC Instrument: Olympus [id number]-[id number] Consent: Indication, risks vs benefits, and alternatives were discussed with the patient who gave written informed consent to proceed. An dye house vat worker was utilized to assist with the consent. EKG, pulse, pulse oximetry and blood pressure were monitored throughout the procedure. Please see anesthesia flowsheet. Procedure: The patient was brought to the procedure room and placed in the left lateral decubitus position. IV medications were administered by the anesthesia provider in attendance. A digital rectal exam was performed which was normal. A distal attachment cap was affixed to the tip of the colonoscope which was then inserted through the anus and advanced through the colon to the cecum at 80 cm. Appendiceal orifice and ileocecal valve were identified. Mucosa was carefully examined under high definition white light as the instrument was slowly withdrawn in a retrograde panoramic fashion. Retroflexion was performed in rectum. The procedure was not difficult. There were no immediate obvious complications. The quality of the prep was BBPS: 2+2+3 = adequate Withdrawal time 13 minutes. Limitations: No limitations. Findings: Mucosa: Normal to cecum. Cold forceps biopsies were taken from the right and left side of the colon to rule out microscopic colitis. Protruding lesions: * 2 sessile polyp of size 2-6 mm in decending colon. Cold forceps polypectomy was performed for the smaller polyp and cold snare polypectomy was performed for the larger polyps. The polyps were completely removed and retrieved. * Medium internal hemorrhoids without stigmata of recent bleeding. Excavated lesions: * Mild diverticulosis of left sided colon. Impression: 1. Normal colon mucosa 2. Total of 2 polyps removed 3. Diverticulosis 4. Internal hemorrhoids Recommendations: - Follow path results. - Repeat colonoscopy in 5-7 years depending on results of the polyps.
[2025-07-05 15:57] VITALS: BP 139/89; PULSE 75; RESP 17; TEMP 36.6; O2SAT 99
[2025-07-05 16:12] VITALS: BP 140/92; PULSE 75; RESP 17; TEMP 36.6; O2SAT 100
== END 2025-07-05 16:25 | disposition home or self-care (01) ==
PROVIDERS: PCP Internal Medicine; Visit Provider Internal Medicine
PROC: 0DJD8ZZ Inspection of Lower Intestinal Tract, Via Natural or Artificial Opening Endoscopic (ICD-10-PCS; CPT 45378; principal; 2025-07-05 10:10)
DX: Z12.11 Encounter for screening for malignant neoplasm of colon (principal); K59.00 Constipation, unspecified; R15.9 Full incontinence of feces; K64.8 Other hemorrhoids; K57.30 Diverticulosis of large intestine without perforation or abscess without bleeding; D12.4 Benign neoplasm of descending colon
CPT/HCPCS: 45380; 88305; J1100; J2003; J2405; J2704; J3010

== ENCOUNTER → 2025-07-05 10:13 | Outpatient (BNV) | payer OTHER, MEDICAID, SELFPAY | PROVIDERS: PCP Internal Medicine; Visit Provider Internal Medicine | DX: R19.4 Change in bowel habit (principal); K63.5 Polyp of colon; K57.90 Diverticulosis of intestine, part unspecified, without perforation or abscess without bleeding; K64.8 Other hemorrhoids | CPT/HCPCS: 45385 ==